=== PATIENT | male | born 1980 | race Caucasian/White ===

== ENCOUNTER → 2020-03-20 15:23 | Outpatient (BNVA) | payer OTHER, SELFPAY | PROVIDERS: PCP Physician Assistant; Visit Provider Surgery | DX: L73.2 Hidradenitis suppurativa (principal) | CPT/HCPCS: 99212 ==

== ENCOUNTER 2020-04-01 13:18 | Day surgery (SDC) | payer OTHER, SELFPAY ==
[2020-03-25 12:29] VITALS: BMI 33.6
--- NOTE | 2020-03-31 09:45 | P.CONAN_ITS ---
HPI - Anesthesia Eval Consult details Narrative: 39yo M for Excision Hidradenitis, Thigh PMFSH Past Medical History Medical History Bronchitis Cervical disc disease with myelopathy Depression Hidradenitis suppurativa Migraines Obesity Opiate dependence Smoker Thoracic disc disease Tibia/fibula fracture Type 2 diabetes mellitus Vitiligo Family History Family History Father CVD (cardiovascular disease) Surgical History Surgical History History of ankle surgery Social History Social History Are you a primary hospice home care coordinator to a significant other at home: No Do you presently have visiting nurse or other home services: No Smoking Status: Current every day smoker Tobacco Type: Cigarette Packs Per Day: 0.5 Cigarettes Per Day: 10.0 Years Smoked: 25 Smoked in Last 30 Days: Yes Patient Interested in Nicotine Replacement: No Patient Given Instructions on How to Stop Smoking: Yes Date Education Initiated: 03/25/20 Use of substances other than those prescribed or required for medical reasons: No Have you been hit, kicked, punched, or otherwise hurt by someone within the past year? If so, by whom?: No Advance Directives: No Advance Directives Information Provided: No Advance Directives on File: No Recently lost weight without trying: No Meds Allergies Allergy/AdvReac Type Severity Reaction Status Date / Time gluten AdvReac Gastrointestinal Verified 03/25/20 12:41 Upset milk AdvReac Gastrointestinal Verified 03/25/20 12:41 Upset Home Medications Medication Instructions Recorded Confirmed Type buprenorphine 2 mg-naloxone 0.5 mg 1 film BUCCAL DAILY 01/16/20 03/25/20 History sublingual film clonazepam 0.5 mg tablet 0.5 mg PO BEDTIME 01/16/20 03/25/20 History ibuprofen 800 mg tablet 800 mg PO TID 01/16/20 03/25/20 History sumatriptan succinate 100 mg tablet See Rx Instructions PO .COMPLEX 01/16/20 03/25/20 History tizanidine 4 mg capsule 4 mg PO Q8H PRN 01/16/20 03/25/20 History albuterol sulfate 2 puff INHALATION Q4H PRN 03/25/20 03/25/20 History Exam Exam Date and Time: March 31, 2020 0945 Height,Weight and Vital Signs: Height 6 ft 1 in Weight 115.666 kg Pertinent Lab Results Pertinent Lab Results: Laboratory Tests 09/21/19 09:20 Sodium 142 Potassium 4.4 Chloride 101 BUN 11 Creatinine 0.89 Assessment and Plan Assessment Anesthesia Assessment: Chart Reviewed
[2020-04-01] VITALS (9 sets, daily range): BP systolic 125–150; BP diastolic 72–99; PULSE 74–87; RESP 16; TEMP 36.2–36.7; O2SAT 95–98
[2020-04-01] MEDS: ceFAZolin Sodium/Dextrose,Iso 2 GM/50 ML PIGGYBACK IV (09:37)
[2020-04-01] MEDS: Lactated Ringers 1,000 ML 100 ML IVCONT (09:38)
--- NOTE | 2020-04-01 09:57 | P.CONAN_ITS ---
[facility] Past Medical History Medical History Bronchitis Cervical disc disease with myelopathy Depression Hidradenitis suppurativa Migraines Obesity Opiate dependence Smoker Thoracic disc disease Tibia/fibula fracture Type 2 diabetes mellitus Vitiligo Family History Family History Father CVD (cardiovascular disease) Surgical History Surgical History History of ankle surgery Social History Social History Are you a primary acute care physical therapist to a significant other at home: No Do you presently have visiting nurse or other home services: No Smoking Status: Current every day smoker Tobacco Type: Cigarette Packs Per Day: 0.5 Cigarettes Per Day: 10.0 Years Smoked: 25 Smoked in Last 30 Days: Yes Patient Interested in Nicotine Replacement: No Patient Given Instructions on How to Stop Smoking: Yes Date Education Initiated: 03/25/20 Use of substances other than those prescribed or required for medical reasons: No Have you been hit, kicked, punched, or otherwise hurt by someone within the past year? If so, by whom?: No Advance Directives: No Advance Directives Information Provided: No Advance Directives on File: No Recently lost weight without trying: No Meds Allergies Allergy/AdvReac Type Severity Reaction Status Date / Time gluten AdvReac Gastrointestinal Verified 03/25/20 12:41 Upset milk AdvReac Gastrointestinal Verified 03/25/20 12:41 Upset Home Medications Medication Instructions Recorded Confirmed Type buprenorphine 2 mg-naloxone 0.5 mg 1 film BUCCAL DAILY 01/16/20 03/25/20 History sublingual film clonazepam 0.5 mg tablet 0.5 mg PO BEDTIME 01/16/20 03/25/20 History ibuprofen 800 mg tablet 800 mg PO TID 01/16/20 03/25/20 History sumatriptan succinate 100 mg tablet See Rx Instructions PO .COMPLEX 01/16/20 03/25/20 History tizanidine 4 mg capsule 4 mg PO Q8H PRN 01/16/20 03/25/20 History albuterol sulfate 2 puff INHALATION Q4H PRN 03/25/20 03/25/20 History Exam Exam Date and Time: April 01, 2020 0957 Height,Weight and Vital Signs: Height 6 ft 1 in Weight 115.666 kg Last Vital Signs Temp 98 F 04/01/20 09:01 Pulse 86 04/01/20 09:01 Resp 16 04/01/20 09:01 BP 125/79 04/01/20 09:01 Pulse Ox 95 04/01/20 09:01 Airway Mallampati Class: III TM Dist: >3cm Neck ROM: Full Heart: RRR Lungs: CTA
--- NOTE | 2020-04-01 09:58 | P.CONAN_ITS ---
[facility] Past Medical History Medical History Bronchitis Cervical disc disease with myelopathy Depression Hidradenitis suppurativa Migraines Obesity Opiate dependence Smoker Thoracic disc disease Tibia/fibula fracture Type 2 diabetes mellitus Vitiligo Family History Family History Father CVD (cardiovascular disease) Surgical History Surgical History History of ankle surgery Social History Social History Are you a primary post acute care registered nurse to a significant other at home: No Do you presently have visiting nurse or other home services: No Smoking Status: Current every day smoker Tobacco Type: Cigarette Packs Per Day: 0.5 Cigarettes Per Day: 10.0 Years Smoked: 25 Smoked in Last 30 Days: Yes Patient Interested in Nicotine Replacement: No Patient Given Instructions on How to Stop Smoking: Yes Date Education Initiated: 03/25/20 Use of substances other than those prescribed or required for medical reasons: No Have you been hit, kicked, punched, or otherwise hurt by someone within the past year? If so, by whom?: No Advance Directives: No Advance Directives Information Provided: No Advance Directives on File: No Recently lost weight without trying: No Meds Allergies Allergy/AdvReac Type Severity Reaction Status Date / Time gluten AdvReac Gastrointestinal Verified 03/25/20 12:41 Upset milk AdvReac Gastrointestinal Verified 03/25/20 12:41 Upset Home Medications Medication Instructions Recorded Confirmed Type buprenorphine 2 mg-naloxone 0.5 mg 1 film BUCCAL DAILY 01/16/20 03/25/20 History sublingual film clonazepam 0.5 mg tablet 0.5 mg PO BEDTIME 01/16/20 03/25/20 History ibuprofen 800 mg tablet 800 mg PO TID 01/16/20 03/25/20 History sumatriptan succinate 100 mg tablet See Rx Instructions PO .COMPLEX 01/16/20 03/25/20 History tizanidine 4 mg capsule 4 mg PO Q8H PRN 01/16/20 03/25/20 History albuterol sulfate 2 puff INHALATION Q4H PRN 03/25/20 03/25/20 History Exam Exam Date and Time: April 01, 2020 0958 Height,Weight and Vital Signs: Height 6 ft 1 in Weight 115.666 kg Last Vital Signs Temp 98 F 04/01/20 09:01 Pulse 86 04/01/20 09:01 Resp 16 04/01/20 09:01 BP 125/79 04/01/20 09:01 Pulse Ox 95 04/01/20 09:01 Assessment and Plan Assessment Anesthesia Assessment: Anesthesia Plan Discussed, Smoking Cess. Discussed and Chart Reviewed Final Anesthetic Review NPO: Yes ASA Class: II and III Final Preanesthetic Review: No Changes in Pt Med Stat, Meds/Allgs Chart Reviewed, Consent Obtained/Reviewed and Anes Risks/Benef Reviewed Patient Risk: Low Procedure Risk: Low Anesthetic Plan Anesthetic Plan: GA Disposition: Standard PACU
--- NOTE | 2020-04-01 10:17 | MHC.SHP ---
Pre-Procedural Eval Section B Chief Complaint: Hidradenitis suppurativa Allergies: Allergies Allergy/AdvReac Type Severity Reaction Status Date / Time gluten AdvReac Gastrointestinal Verified 03/25/20 12:41 Upset milk AdvReac Gastrointestinal Verified 03/25/20 12:41 Upset Plan I have reviewed the history and physical and performed a pertinent physical examination on my patient. No changes have occurred unless specified.
--- NOTE | 2020-04-01 11:13 | P.BOP_ITS ---
Brief Operative Note Date of Service: 04/01/20 Pre-op diagnosis: hidradenitis suppurative right groin Post-op diagnosis: same Procedure: excision of right groin hidradenitis suppurativa Surgeon: Jose Zelaya MD Anesthesia: GLMA Associate Professor Of Surgery: Dia Rosales Estimated blood loss (mL): 10 Pathology: other (hidradenitis of right groin) Condition: stable Disposition: PACU
[2020-04-01] MEDS: fentaNYL citrate/PF 100 MCG/2 ML VIAL 25 MCG IVPUSH (11:43)
--- NOTE | 2020-04-01 11:56 | OP_ITS ---
SURGEON: Jose Zelaya MD INDICATIONS: The patient is a 39-year-old male, who has had an area on the right medial thigh with recurrent swelling and drainage. I have seen him in the office. He was noted to have an area on the right medial thigh near the groin with induration measuring about 4 cm. These are multiple small sinuses and some scanty drainage consistent with hidradenitis suppurativa. In view of this, he wanted to proceed with excision. He understood the technique of excision, which had to be done under anesthesia. He is aware of the risks, benefits, and alternatives. PREOPERATIVE DIAGNOSIS: Hidradenitis suppurativa, right medial thigh. POSTOPERATIVE DIAGNOSIS: Hidradenitis suppurativa, right medial thigh. PROCEDURE PERFORMED: Excision of hidradenitis suppurativa, right medial thigh. ESTIMATED BLOOD LOSS: COMPLICATIONS: ANESTHESIA: ASSISTANTS: Dia Rosales PA-C. SPECIMENS: DESCRIPTION OF PROCEDURE: He was brought to the operating room and placed in frog-leg position under general anesthesia via laryngeal mask airway. A surgical time-out had been done. The right groin was prepped and draped in usual sterile fashion. The patient received cefazolin 2 g IV preoperatively. I had marked the planned line of incision using a pen to make sure that we included all sinuses and areas of induration. I infiltrated the area with lidocaine 1%. I made incision using blade #15 and this was carried down to full-thickness skin and subcutaneous fat using electrocautery. We then proceeded to gently dissect across the thick subcutaneous fat using electrocautery, with care being taken so as to make sure that we are including all the indurated and grossly diseased looking soft tissue. We divided across this entire area of induration in the subcutaneous layer until this was removed and sent as specimen. The defect of skin and thick subcutaneous fat was about 7 cm long x about 3 cm wide. I undermined the edges to include the flap of skin and subcutaneous layer to allow closure without tension. We proceeded to make sure that we had good hemostasis by cauterizing oozing areas. We copiously irrigated. I reapposed the subcutaneous layer with Dexon 3-0 interrupted sutures. Skin closure was achieved with nylon 3-0 interrupted sutures, alternating with vertical mattress sutures. The area of incision was then infiltrated with Marcaine 0.5% for postop analgesia. Thick dressings were applied. The procedure was completed. The patient tolerated the procedure well. There were no complications noted. Initial and final counts of sponges and instruments were correct. Estimated blood loss was about 15 mL. The patient was extubated without difficulty and transferred to recovery room with stable vital signs. MD TRAN Terrazas/WONG / [id number]
[2020-04-01 13:49] LABS: Glucose, Whole Blood 106 mg/dL (60-115)
--- NOTE | 2020-04-01 14:12 | HO.POSTANES ---
Post Anesthesia Evaluation Post Anesthesia Evaluation Vital Signs: Vital Signs Temp Pulse Resp BP Pulse Ox 04/01/20 12:14 98.1 F 77 131/72 96 04/01/20 12:03 74 16 133/72 96 04/01/20 11:48 81 16 126/84 97 04/01/20 11:43 16 04/01/20 11:33 98.1 F 84 16 148/99 H 97 04/01/20 11:28 87 16 138/97 H 98 04/01/20 11:22 81 16 150/99 H 98 04/01/20 11:17 97.1 F 83 16 142/95 H 98 04/01/20 09:01 98 F 86 16 125/79 95 Anesthesia: General LMA Mental Status: Awake Pain Control: Satisfactory Nausea/Vomiting: None Hydration: Adequate Anesthesia-Related Issues: No Anes. Related Issues
== END 2020-04-01 13:25 | disposition home or self-care (01) ==
LOC: HO.SSS 13:19
PROVIDERS: PCP Physician Assistant; Visit Provider Surgery
PROC: (CPT 11462; principal; 2020-04-01 10:50)
DX: L73.2 Hidradenitis suppurativa (principal); L80 Vitiligo; E11.9 Type 2 diabetes mellitus without complications; M50.00 Cervical disc disorder with myelopathy, unspecified cervical region; M51.9 Unspecified thoracic, thoracolumbar and lumbosacral intervertebral disc disorder; F11.20 Opioid dependence, uncomplicated; F17.210 Nicotine dependence, cigarettes, uncomplicated; Z79.899 Other long term (current) drug therapy
CPT/HCPCS: 11462; 82947; 88305; J0690; J1100; J2250; J2405; J3010

== ENCOUNTER → 2020-04-16 09:42 | Outpatient (BNVA) | payer OTHER, SELFPAY | PROVIDERS: PCP Physician Assistant; Visit Provider Surgery | DX: L73.2 Hidradenitis suppurativa (principal) | CPT/HCPCS: 99212 ==

== ENCOUNTER 2020-10-25 10:18 | Outpatient (REF) | payer OTHER, SELFPAY ==
--- NOTE | ~2020-10-25 | XR_ITS ---
EXAMINATION: XR knee LT 4V, XR knee RT 4V, XR tibia fibula RT 2V CLINICAL INFORMATION: Fracture. COMPARISON: None. TECHNIQUE: Right knee 4 views. AP and lateral right tibia and fibula. Left knee 3 views. FINDINGS: RIGHT KNEE: A medial sideplate and multiple screws transfix a tibial plateau fracture which appears healed. There is irregularity of the lateral tibial plateau articular margin width posterior displacement of a portion of the proximal tibia. No hardware complication is seen. Mild degenerative changes are present in the medial and lateral compartments. No acute abnormality. RIGHT TIBIA AND FIBULA: AP and lateral views of the right tibia and fibula show no additional abnormality. LEFT KNEE: 3 views of the left knee are normal. No bony abnormality. Joint spaces are maintained. No joint effusion is demonstrated. XR/XR knee LT 4V IMPRESSION: 1. Status post ORIF of right tibial plateau fracture. Irregularity of the lateral tibial plateau with posteriorly displaced fragment. The fracture appears solidly united. Mild degenerative changes. No acute abnormality. 2. Normal left knee.
--- NOTE | ~2020-10-25 | XR_ITS ---
EXAMINATION: XR knee LT 4V, XR knee RT 4V, XR tibia fibula RT 2V CLINICAL INFORMATION: Fracture. COMPARISON: None. TECHNIQUE: Right knee 4 views. AP and lateral right tibia and fibula. Left knee 3 views. FINDINGS: RIGHT KNEE: A medial sideplate and multiple screws transfix a tibial plateau fracture which appears healed. There is irregularity of the lateral tibial plateau articular margin width posterior displacement of a portion of the proximal tibia. No hardware complication is seen. Mild degenerative changes are present in the medial and lateral compartments. No acute abnormality. RIGHT TIBIA AND FIBULA: AP and lateral views of the right tibia and fibula show no additional abnormality. LEFT KNEE: 3 views of the left knee are normal. No bony abnormality. Joint spaces are maintained. No joint effusion is demonstrated. XR/XR tibia fibula RT 2V IMPRESSION: 1. Status post ORIF of right tibial plateau fracture. Irregularity of the lateral tibial plateau with posteriorly displaced fragment. The fracture appears solidly united. Mild degenerative changes. No acute abnormality. 2. Normal left knee.
--- NOTE | ~2020-10-25 | XR_ITS ---
EXAMINATION: XR knee LT 4V, XR knee RT 4V, XR tibia fibula RT 2V CLINICAL INFORMATION: Fracture. COMPARISON: None. TECHNIQUE: Right knee 4 views. AP and lateral right tibia and fibula. Left knee 3 views. FINDINGS: RIGHT KNEE: A medial sideplate and multiple screws transfix a tibial plateau fracture which appears healed. There is irregularity of the lateral tibial plateau articular margin width posterior displacement of a portion of the proximal tibia. No hardware complication is seen. Mild degenerative changes are present in the medial and lateral compartments. No acute abnormality. RIGHT TIBIA AND FIBULA: AP and lateral views of the right tibia and fibula show no additional abnormality. LEFT KNEE: 3 views of the left knee are normal. No bony abnormality. Joint spaces are maintained. No joint effusion is demonstrated. XR/XR knee RT 4V IMPRESSION: 1. Status post ORIF of right tibial plateau fracture. Irregularity of the lateral tibial plateau with posteriorly displaced fragment. The fracture appears solidly united. Mild degenerative changes. No acute abnormality. 2. Normal left knee.
[2020-10-25 11:08] LABS: Estimated Average Glucose 123 mg/dL; Hemoglobin A1c % 5.9 %
[2020-10-25 11:51] LABS: Creatinine Urine 206.25 mg/dL; Microalbum/Creatinine Ratio Ur 5.8 ug/mg cr
[2020-10-25 11:54] LABS: Alanine Aminotransferase 30 U/L (0-40); Albumin Level 4.8 g/dL (3.5-5.0); Alkaline Phosphatase 85 U/L (39-117); Anion Gap 13 (12-20); Aspartate Amino Transferase 27 U/L (5-37); Bilirubin Total 0.7 mg/dL (0.0-1.0); Blood Urea Nitrogen 12 mg/dL (9-16); Calcium 9.7 mg/dL (8.4-10.2); Carbon Dioxide 30 mmol/L (22-29); Chloride 104 mmol/L (96-108); Cholesterol 178 mg/dL; Estimated Glomerular Filt Rate > 60; Glucose Fasting 99 mg/dL (60-99); HDL Cholesterol 36 mg/dL; LDL Cholesterol Calculated 104 mg/dl; Potassium 4.6 mmol/L (3.3-5.1); Sodium 142 mmol/L (135-145); Total Protein 7.4 g/dL (6.5-8.0); Triglycerides 192 mg/dL
[2020-10-25 12:15] LABS: TSH reflex Free T4 1.14 uIU/mL (0.32-4.0)
== END 2020-10-25 10:19 | disposition home or self-care (01) ==
LOC: HO.XRAY 10:18
PROVIDERS: PCP Physician Assistant; Visit Provider Physician Assistant
DX: E11.9 Type 2 diabetes mellitus without complications (principal); G89.29 Other chronic pain; M25.561 Pain in right knee; M25.562 Pain in left knee; Z79.4 Long term (current) use of insulin; Z87.81 Personal history of (healed) traumatic fracture
CPT/HCPCS: 36415; 73564; 73590; 80053; 80061; 82043; 83036; 84443

== ENCOUNTER 2020-11-03 12:43 | Outpatient (REF) | payer OTHER, SELFPAY ==
[2020-11-03 13:34] LABS: Hemoglobin 16.2 g/dl (14.0-18.0); Mean Corpuscular HGB Conc 32.4 g/dl (31.0-36.0); Mean Corpuscular Hemoglobin 28.7 pg (27.0-33.0); Mean Corpuscular Volume 88.5 fL (80-98); Mean Platelet Volume 10.3 fL (9.4-12.4); Platelet Count 182 X10*3/uL (160-400); Red Blood Count 5.65 X10*6/uL (4.60-5.80); Red Cell Distribution Width 12.4 % (11.0-16.0); White Blood Count 8.1 X10*3/uL (4.8-10.8)
[2020-11-03 14:10] LABS: Syphilis Screen Nonreactive (Nonreactive)
[2020-11-04 04:20] LABS: HBc Num1 0.06 S/CO (0.00-0.79); HBsAGNum1 0.19 S/CO (0.00-0.99); Hepatitis B Core Antibody Nonreactive (Nonreactive); Hepatitis B Surface Antigen Negative (Negative); ~HepC Num1 0.08 S/CO (0.00-0.79); ~Hepatitis C Antibody Nonreactive (Nonreactive)
[2020-11-04 04:23] LABS: HBS Num1 10.86 mIU/mL (0-7.99); HIV AB/AG Nonreactive (Nonreactive); HIV Num 1 0.07 S/CO (0.00-0.99)
[2020-11-04 05:22] LABS: HBS Num2 9.95 mIU/mL (0-7.99); HBS Num3 10.47 mIU/mL (0-7.99); ~Hepatitis B Surface Antibody GRAYZONE (Nonreactive)
== END 2020-11-03 12:44 | disposition home or self-care (01) ==
LOC: HO.LAB 12:43
PROVIDERS: PCP Physician Assistant; Visit Provider Physician Assistant
DX: Z01.84 Encounter for antibody response examination (principal); Z11.4 Encounter for screening for human immunodeficiency virus [HIV]; Z11.59 Encounter for screening for other viral diseases; E11.9 Type 2 diabetes mellitus without complications; I10 Essential (primary) hypertension; Z79.4 Long term (current) use of insulin
CPT/HCPCS: 36415; 85027; 86704; 86706; 86780; 86803; 87340; 87389

== ENCOUNTER → 2020-11-05 11:05 | Outpatient (BNVA) | payer OTHER, SELFPAY | PROVIDERS: PCP Physician Assistant; Visit Provider Orthopaedic Surgery | DX: M17.31 Unilateral post-traumatic osteoarthritis, right knee (principal) | CPT/HCPCS: 99202 ==

== ENCOUNTER → 2020-11-11 13:01 | Outpatient (BNVA) | payer SELFPAY | PROVIDERS: PCP Physician Assistant; Visit Provider Internal Medicine | DX: Z02.79 Encounter for issue of other medical certificate (principal) ==

== ENCOUNTER 2020-11-22 13:17 | Outpatient (REF) | payer OTHER, SELFPAY ==
--- NOTE | ~2020-11-22 | XR_ITS ---
EXAMINATION: XR THORACIC SPINE. XR LUMBAR SPINE. CLINICAL INFORMATION: Back pain COMPARISON: 12/04/2019 TECHNIQUE: AP and lateral radiographs of the thoracic spine. 3 views of the lumbar spine. FINDINGS: Thoracic spine: Normal alignment and thoracic kyphosis. No fracture. No significant degenerative findings. Lumbar spine: Normal alignment and lumbar lordosis. Intervertebral disc heights are preserved. No fracture or focal osseous lesion. XR/XR thoracic spine 3V IMPRESSION: Thoracic spine: Normal. Lumbar spine: Normal.
--- NOTE | ~2020-11-22 | XR_ITS ---
EXAMINATION: XR THORACIC SPINE. XR LUMBAR SPINE. CLINICAL INFORMATION: Back pain COMPARISON: 12/04/2019 TECHNIQUE: AP and lateral radiographs of the thoracic spine. 3 views of the lumbar spine. FINDINGS: Thoracic spine: Normal alignment and thoracic kyphosis. No fracture. No significant degenerative findings. Lumbar spine: Normal alignment and lumbar lordosis. Intervertebral disc heights are preserved. No fracture or focal osseous lesion. XR/XR lumbar spine 2-3V IMPRESSION: Thoracic spine: Normal. Lumbar spine: Normal.
== END 2020-11-22 13:18 | disposition home or self-care (01) ==
LOC: HO.HMGCX 13:17
PROVIDERS: PCP Physician Assistant; Visit Provider Physician Assistant Medical
DX: M54.9 Dorsalgia, unspecified (principal); Z87.39 Personal history of other diseases of the musculoskeletal system and connective tissue
CPT/HCPCS: 72072; 72100

== ENCOUNTER 2021-02-13 15:43 | Outpatient (REF) | payer OTHER, SELFPAY ==
[2021-02-13 17:48] LABS: Influenza A PCR NEGATIVE (Negative); Influenza B PCR NEGATIVE (Negative); Resp Syncy Virus RNA Qual PCR NEGATIVE (Negative); SARS COV2 PCR INHOUSE NEGATIVE (Negative)
== END 2021-02-13 15:44 | disposition home or self-care (01) ==
LOC: HO.LAB 15:43
PROVIDERS: Visit Provider Internal Medicine
DX: Z20.822 Contact with and (suspected) exposure to COVID-19 (principal); R43.9 Unspecified disturbances of smell and taste
CPT/HCPCS: 0241U; 36415

== ENCOUNTER 2021-10-14 15:18 | Outpatient (REF) | payer OTHER, SELFPAY ==
[2021-10-19 11:21] LABS: Testosterone, Total 291 ng/dL (250-1100)
== END 2021-10-14 15:19 | disposition home or self-care (01) ==
LOC: HO.LAB 15:18
PROVIDERS: PCP Physician Assistant; Visit Provider Physician Assistant
DX: R68.82 Decreased libido (principal); Z79.891 Long term (current) use of opiate analgesic
CPT/HCPCS: 36415; 84403

== ENCOUNTER → 2021-10-26 10:51 | Outpatient (BNVA) | payer SELFPAY | PROVIDERS: PCP Physician Assistant; Visit Provider Internal Medicine | DX: Z02.79 Encounter for issue of other medical certificate (principal) ==

== ENCOUNTER 2022-04-17 10:16 | Outpatient (REF) | payer OTHER, SELFPAY ==
[2022-04-17 11:07] LABS: Hematocrit 50.8 % (42.0-52.0); Hemoglobin 16.9 g/dl (14.0-18.0); Mean Corpuscular HGB Conc 33.3 g/dl (31.0-36.0); Mean Corpuscular Volume 87.3 fL (80.0-98.0); Mean Platelet Volume 9.8 fL (9.4-12.4); Platelet Count 214 X10*3/uL (160-400); Red Blood Count 5.82 X10*6/uL (4.60-5.80); Red Cell Distribution Width 12.8 % (11.0-16.0); White Blood Count 11.7 X10*3/uL (4.8-10.8)
[2022-04-17 11:12] LABS: Urine Cytology See Pathology rpt
[2022-04-17 11:22] LABS: Appearance Urine Clear; Color Urine Yellow; Glucose Urine UA Negative (Negative); Leukocyte Esterase Urine Negative (Negative); Nitrite Urine Negative (Negative); Specific Gravity - Urine >= 1.030 (1.005-1.025); Urine Blood Negative (Negative); Urine Ketones Negative (Negative); Urine Protein Trace mg/dL (Neg-Trace)
[2022-04-17 11:39] LABS: Creatinine Urine 327.52 mg/dL; Microalbum/Creatinine Ratio Ur 9.4 ug/mg cr
[2022-04-17 11:59] LABS: TSH reflex Free T4 1.62 uIU/mL (0.32-4.0)
[2022-04-17 12:00] LABS: Anion Gap 18 (12-20)
[2022-04-17 12:04] LABS: Alanine Aminotransferase 34 U/L (0-40); Albumin Level 4.8 g/dL (3.5-5.0); Alkaline Phosphatase 76 U/L (39-117); Aspartate Amino Transferase 20 U/L (5-37); Bilirubin Total 0.5 mg/dL (0.0-1.0); Blood Urea Nitrogen 17 mg/dL (9-16); Calcium 9.8 mg/dL (8.4-10.2); Carbon Dioxide 23 mmol/L (22-29); Chloride 109 mmol/L (96-108); Cholesterol 227 mg/dL; Estimated Glomerular Filt Rate > 60; Glucose Fasting 112 mg/dL (60-99); HDL Cholesterol 46 mg/dL; LDL Cholesterol Calculated 143 mg/dl; Potassium 3.9 mmol/L (3.3-5.1); Sodium 146 mmol/L (135-145); Total Protein 7.4 g/dL (6.5-8.0); Triglycerides 194 mg/dL
== END 2022-04-17 10:17 | disposition home or self-care (01) ==
LOC: HO.LAB 10:16
PROVIDERS: Visit Provider Physician Assistant
DX: E11.9 Type 2 diabetes mellitus without complications (principal); N52.2 Drug-induced erectile dysfunction; R30.0 Dysuria; Z79.4 Long term (current) use of insulin
CPT/HCPCS: 36415; 80053; 80061; 81003; 82043; 84443; 85027; 88112

== ENCOUNTER → 2022-08-31 09:23 | Outpatient (BNVA) | payer OTHER, SELFPAY | PROVIDERS: PCP Physician Assistant; Visit Provider Registered Nurse Emergency ==

== ENCOUNTER 2022-09-16 12:17 | Outpatient (REF) | payer OTHER, MEDICAID, SELFPAY ==
--- NOTE | ~2022-09-16 | XR_ITS ---
EXAMINATION: XR BILATERAL KNEES CLINICAL INFORMATION: Reason for Exam M25.569 - Pain in unspecified knee COMPARISON: Knee radiographs 10/25/2020 TECHNIQUE: 1 views of the bilateral knees and 2 views of the right knee. FINDINGS: RIGHT KNEE: Chronic prostatic fracture deformity of the proximal tibia status post plate and screw fixation in unchanged alignment. A 9 mm osseous fragment the tibiofemoral joint space which may reflect a loose body. Moderate degenerative changes of the knee with loss of lateral compartment joint space and medial lateral compartment osteophytes. Small suprapatellar joint effusion. Soft tissues are unremarkable. LEFT KNEE: No acute fracture or dislocation. Joint spaces are maintained. Soft tissues are unremarkable. XR/XR knee RT 2V IMPRESSION: * No acute osseous abnormality. * Moderate degenerative changes of the right knee with a 9 mm osseous fragment within the tibiofemoral joint space which may reflect a loose body. Small right suprapatellar joint effusion.
--- NOTE | ~2022-09-16 | XR_ITS ---
EXAMINATION: XR PELVIS CLINICAL INFORMATION: Pain COMPARISON: None available. TECHNIQUE: AP view of the pelvis. FINDINGS: No acute fracture or dislocation. Mild degenerative changes of the hips with subchondral sclerosis. Bony prominence of the bilateral femoral head and neck junctions may reflect a cam deformity with a subcortical cyst in the left femoral head and neck junction. Hip, sacroiliac and pubic symphysis joint spaces are maintained. Few calcified phleboliths in the pelvis. XR/XR pelvis 1-2V IMPRESSION: Bony prominence of the bilateral femoral head and neck junctions may reflect a cam deformity with a subcortical cyst in the left femoral head and neck junction and mild degenerative changes of the hips.
--- NOTE | ~2022-09-16 | XR_ITS ---
EXAMINATION: XR BILATERAL KNEES CLINICAL INFORMATION: Reason for Exam M25.569 - Pain in unspecified knee COMPARISON: Knee radiographs 10/25/2020 TECHNIQUE: 1 views of the bilateral knees and 2 views of the right knee. FINDINGS: RIGHT KNEE: Chronic prostatic fracture deformity of the proximal tibia status post plate and screw fixation in unchanged alignment. A 9 mm osseous fragment the tibiofemoral joint space which may reflect a loose body. Moderate degenerative changes of the knee with loss of lateral compartment joint space and medial lateral compartment osteophytes. Small suprapatellar joint effusion. Soft tissues are unremarkable. LEFT KNEE: No acute fracture or dislocation. Joint spaces are maintained. Soft tissues are unremarkable. XR/XR knee standing BI IMPRESSION: * No acute osseous abnormality. * Moderate degenerative changes of the right knee with a 9 mm osseous fragment within the tibiofemoral joint space which may reflect a loose body. Small right suprapatellar joint effusion.
== END 2022-09-16 12:18 | disposition home or self-care (01) ==
LOC: HO.HOSX 12:17
PROVIDERS: Visit Provider Orthopaedic Surgery
DX: M17.31 Unilateral post-traumatic osteoarthritis, right knee (principal); S82.201S Unspecified fracture of shaft of right tibia, sequela; R26.9 Unspecified abnormalities of gait and mobility; X58.XXXS Exposure to other specified factors, sequela; Z96.9 Presence of functional implant, unspecified
CPT/HCPCS: 20610; 72170; 73560; 73565; 99202; J1100

== ENCOUNTER 2022-10-18 09:19 | Outpatient (AMB) | payer OTHER, MEDICAID, SELFPAY ==
--- NOTE | 2022-10-18 10:17 | A.OFFPC_ITS ---
Vital Signs 10/20/22 07:27 Height 6 ft 1 in Weight 252 lb BMI 33.2 Intake Visit Reasons: Annual exam Allergies gluten Adverse Reaction (Verified 09/16/22 15:19) Gastrointestinal Upset milk Adverse Reaction (Verified 09/16/22 15:19) Gastrointestinal Upset Tobacco use date assessed: 06/02/21 [facility] Annual exam HPI Details Patient is a 41 here today for routine annual physical t.? Patient has a past medical history significant for opiate dependence type 2 diabetes cervical disc disease with myopathy, tobacco use disorder .. Tobacco use disorder:? Patient does understand he needs to quit smoking and would like to wean smoking on his own.? He declines my offers to give nicotine replacement therapy. . Type 2 diabetes:? Has been diet controlled with lifestyle. Todays A1c - 5.9 .? .. History of tib-fib fracture:? Does have a history of a tib-fib fracture secondary to trauma with hardware repair placement at [facility] ? Dr. rodarte. He reports he continues to have right knee pain and pain in his anterior pearce. He does have retained orthopedic hardware and is due for removal in near future. First pain control he would still does use ibuprofen and gabapentin with some minimal relief. [facility] Medical History (Updated 10/20/22 @ 07:26 by Hammad Lopez PA-C) Bronchitis Cervical disc disease with myelopathy Depression H/O fracture of tibia Hidradenitis suppurativa Low libido Microscopic hematuria Migraines Obesity Opiate dependence Smoker Thoracic disc disease Tibia/fibula fracture Tibial plateau fracture, right Type 2 diabetes mellitus Vitiligo Surgical History History of ankle surgery History of removal of cyst Family History Father CVD (cardiovascular disease) Brother Heart attack, Onset Age: 50 Social History (Updated 09/16/22 @ 15:21 by GARCIA Harrell) Housing: House Are you a primary child care sitter to a significant other at home: No Do you presently have visiting nurse or other home services: No Alcohol intake: never Patient Tobacco Use Status: Current everyday Tobacco user Cigarette Packs Per Day: 1 Cigarettes Per Day: 20.0 Years Smoked: 25 e-Cigarette/Vaping Use: Never Used Second Hand Smoke Exposure: No service: No Current occupational status: employed 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 Agustin Cerda, Micki Harris, Adam Adan and colleagues, with an educational basilio from [employer]. Review of Systems Const Denies body aches, Denies chills, Denies excessive sweating, Denies fatigue, Denies fever(s) and Denies headache(s) Eyes Denies blurry vision ENT Denies dysphagia, Denies vertigo, Denies dizziness, Denies headache(s), Denies hearing loss and Denies tinnitus Card Denies chest pain, Denies chest pain with activity, Denies syncope, Denies irregular heart rhythm and Denies dyspnea Resp Denies chest congestion, Denies cough, Denies hemoptysis, Denies dyspnea and Denies wheezing GI Denies abdominal pain, Denies melena, Denies hematochezia, Denies coffee ground emesis, Denies dysphagia, Denies diarrhea, Denies nausea and Denies vomiting Denies difficulty urinating, Denies dysuria, Denies urinary frequency, Denies urinary hesitancy and Denies urinary urgency Musc Denies arthralgias, Denies limited range of motion, Denies muscle cramps and Denies muscle weakness Skin/Breast Denies rash and Denies skin ulcer Neuro Denies Abnormal speech present, Denies confusion, Denies vertigo, Denies dizziness, Denies syncope, Denies headache(s), Denies memory loss and Denies seizure-like activity Psych Denies anxiety, Denies confusion, Denies depression, Denies memory loss, Denies panic attacks and Denies paranoia Endo Denies excessive sweating, Denies fatigue, Denies flushing, Denies polydipsia and Denies polyuria Aller/Immun Denies wheezing Physical exam (Primary Care) BMI Assessment/Plan discussion: High Tobacco/Smoking Status: Tobacco use Status Tobacco use date assessed 06/02/21 10/18/22 10:19 Patient Tobacco Use Status Current everyday Tobacco 10/18/22 10:19 e-Cigarette/Vaping Use Never Used 07/10/23 10:19 Thrive Assessment: Date of Thrive Assessment Date Thrive assessed 04/14/22 10/18/22 10:19 Const Other: Obese General: cooperative, comfortable, no acute distress, alert and awake; No confusion Orientation/consciousness: oriented to person, oriented to place, patient oriented x3 and No confusion HENMT Head: Yes normocephalic Ears: external ears normal and TM's normal bilaterally Face and sinus: No sinus tenderness Mouth: Normal oral and palatal mucosa present and tongue normal Teeth and gingiva: dentition normal and gingiva normal Throat: Yes posterior oropharynx normal, Yes tonsils normal and Yes uvula midline Eyes Conjunctivae: conjunctivae normal Sclerae: sclerae normal Pupils: Equal, round and reactive pupils present EOM: EOMs intact bilaterally Direct Ophthalmoscopy: No no photophobia Neck Neck: Yes no lymphadenopathy, No tender and Yes no JVD Thyroid: Thyroid normal Carotids: no bruits Chest Chest palpation & inspection: no tenderness Resp Effort & Inspection: normal respiratory effort, no audible wheezes, not labored and no stridor Auscultation: no crackles, no rales, no rhonchi and no wheezes Cardio Jugular venous distension: no JVD Rate: regular rate, not bradycardic and not tachycardic Rhythm: regular rhythm Bruits: no carotid bruits Peripheral pulses: Peripheral pulses 2+ throughout GI Inspection: Yes normal to inspection, No abdominal wall ecchymosis and No visible herniation Palpation (GI): Soft to palpation, nontender, no guarding, not rigid and No hepatosplenomegaly present Auscultation: normoactive bowel sounds General: Yes no CVA tenderness Back/Spine/Pelvis Back: no CVA tenderness and No back tenderness Cervical Spine: cervical ROM normal Thoracic/Lumbar Spine: thoracic and lumbar spine normal to inspection, straight leg raise negative bilaterally, No thoraco-lumbar ROM limited and No lumbar spinal tenderness Skin Lesions: no lesions Rashes: no rashes Wounds: no wounds Neuro General: oriented to person, oriented to place, patient oriented x3, CN's II-XI intact bilaterally and No confusion Cranial nerves: Yes Equal, round and reactive pupils present and Yes Normal accommodation reflex present Cognition (Neuro): normal cognition Speech: No Abnormal speech present Gait exam (Neuro): Normal gait present Motor exam (neuro): 5/5 motor strength present throughout Extrem Right upper extremity: full ROM; no cyanosis Left upper extremity: full ROM; no cyanosis Right lower extremity: no edema Left lower extremity: no edema Psych Appearance: grossly normal Mental Status: mental status grossly normal Affect: normal affect Attitude: cooperative Thought process: Normal thought process present Assessment and Plan Assessment & Plan (1) Annual physical exam: Code(s): Z00.00 - Encounter for general adult medical examination without abnormal findings (2) ERIN (generalized anxiety disorder): Code(s): F41.1 - Generalized anxiety disorder Plan: Continues to follow a mental health therapist and psychiatrist whom manages mental health medications. He feels his mental health is stable at this time. (3) MDD (major depressive disorder), recurrent episode, moderate: Code(s): F33.1 - Major depressive disorder, recurrent, moderate Plan: Again patient followed by a psychiatrist and a mental health therapist and feels his mental health is stable at this time on current doses of mental health medications. Otherwise denies any SI or HI (4) Hyperlipidemia: Code(s): E78.5 - Hyperlipidemia, unspecified Qualifiers: Hyperlipidemia type: mixed hyperlipidemia Qualified Code(s): E78.2 - Mixed hyperlipidemia Plan: Most recent fasting lipid panel noted to have elevated total cholesterol and LDL. Patient has been working on lifestyle modifications to try to reduce his cholesterol. Will recheck fasting lipids in near future. Goal LDL to be below 130 (5) Retained orthopedic hardware: Code(s): Z96.9 - Presence of functional implant, unspecified Plan: Followed by Orthopedics and is due for bothersome hardware removal surgery in near future. (6) Type 2 diabetes mellitus: Comment: No rx Code(s): E11.9 - Type 2 diabetes mellitus without complications Qualifiers: Diabetes mellitus penitentiary insulin use: with terminal makeup operator use Diabetes mellitus complication status: without complication Qualified Code(s): E11.9 - Type 2 diabetes mellitus without complications; Z79.4 - terminal makeup operator (current) use of insulin Plan: Patient has history of type 2 diabetes though now is lifestyle controlled. Most recent A1c acceptable. Goal A1c is to remain below 6.5 (7) Obese: Code(s): E66.9 - Obesity, unspecified Qualifiers: Obesity type: due to excess calories Obesity classification: adult class 1 (BMI 30 - 34.9) Serious obesity comorbidity presence: without serious comorbidity Body mass index: BMI 31.0-31.9 Qualified Code(s): E66.09 - Other obesity due to excess calories; Z68.31 - Body mass index [BMI] 31.0-31.9, adult Plan: Patient does understand his BMI is well over 30 will work on being more physically active and adapting to better eating habits to reduce his weight. Orders: Orders Comprehensive [place]. Panel Fast 10/18/22 E11.9 - Type 2 diabetes mellitus without complications, Z79.4 - detention (current) use of insulin Hemoglobin A1c 10/18/22 E11.9 - Type 2 diabetes mellitus without complications, Z79.4 - terminal makeup operator (current) use of insulin Lipid Panel 10/18/22 E11.9 - Type 2 diabetes mellitus without complications, Z79.4 - terminal makeup operator (current) use of insulin Microalbumin, Random (w Creat) 10/18/22 E11.9 - Type 2 diabetes mellitus without complications, Z79.4 - terminal makeup operator (current) use of insulin Complete Blood Count no Diff 10/18/22 E11.9 - Type 2 diabetes mellitus without complications, Z79.4 - detention (current) use of insulin Medications: Refilled ibuprofen 800 mg PO TID 15 days 45 tabs 0RF E11.9 - Type 2 diabetes mellitus without complications, Z79.4 - detention (current) use of insulin Coding Level of Care Code Est Pt Prev Care 40-64y(62134) Diagnoses Annual physical exam Z00.00 ERIN (generalized anxiety disorder) F41.1 MDD (major depressive disorder), recurrent episode, moderate F33.1 Hyperlipidemia E78.2 Hyperlipidemia type: mixed hyperlipidemia Retained orthopedic hardware Z96.9 Type 2 diabetes mellitus E11.9; Z79.4 Diabetes mellitus terminal makeup operator insulin use: with penitentiary use Diabetes mellitus complication status: without complication Obese E66.09; Z68.31 Obesity type: due to excess calories Obesity classification: adult class 1 (BMI 30 - 34.9) Serious obesity comorbidity presence: without serious comorbidity Body mass index: BMI 31.0-31.9
[2022-10-20 07:27] VITALS: BMI 33.2
== END 2022-10-18 10:37 | disposition home or self-care (01) ==
LOC: HO.HMGH 10:36
PROVIDERS: PCP Physician Assistant; Visit Provider Physician Assistant
DX: Z00.00 Encounter for general adult medical examination without abnormal findings (principal); F33.1 Major depressive disorder, recurrent, moderate; E11.9 Type 2 diabetes mellitus without complications; Z79.4 Long term (current) use of insulin; F41.1 Generalized anxiety disorder; E78.2 Mixed hyperlipidemia; Z96.9 Presence of functional implant, unspecified; Z68.31 Body mass index [BMI] 31.0-31.9, adult; E66.09 Other obesity due to excess calories
CPT/HCPCS: 99396

== ENCOUNTER 2022-11-12 09:10 | Outpatient (AMB) | payer OTHER, MEDICAID, SELFPAY ==
--- NOTE | 2022-11-12 09:22 | AM.OFFWIN_ITS ---
Intake Vital Signs 11/12/22 09:25 Height 6 ft 1 in BP 126/78 Blood Pressure Location Lt brachial Position Sitting Pulse 105 H Pulse Source Pulse Oximeter Temp 97.5 F Temp Source Temporal Artery Scan Pulse Oximetry (%) 96 Oxygen Delivery Method Room Air Intake Visit Reasons: EP, Bronchitis Intake Note: Pt is here c/o possible bronchitis. Pt states he has had bronchitis before and feels the same symptoms. Pt states he is coughing up phlem, chest congestion, dizziness and pain in his ribs. Patient Tobacco Use Status: Current everyday Tobacco user Allergies gluten Adverse Reaction (Verified 11/12/22 09:24) Gastrointestinal Upset milk Adverse Reaction (Verified 11/12/22 09:24) Gastrointestinal Upset Do you need a note to return to daycare/school/sports/work: No HPI HPI Comments History of Present Illness Details 41-year-old male history of DVT, current daily smoker 1 pack per day presents to the clinic for sick visit, patient reporting fatigue, malaise, subjective fevers and chills, cough of productive yellow/ green sputum this has been going on since Tuesday, worsening /not improving. Patient reports some a ssociated shortness of breath however no chest pain. Patient tells me he did have a sick contact at work with similar symptoms. Patient denies nausea, vomiting, abdominal pain, headache, vision changes, dizziness, joint pain, chest pain, palpitations. Patient not on anticoagulants. Physical examination benign. Concerns for bronchitis versus upper respiratory illness versus pneumonia. Less likely PE however due to patient's past medical history will order D-dimer, I did explain to him that if D-dimer is positive he should go to the emergency department for further evaluation, patient also tachycardic but I suspect this is secondary to cough an acute viral/ bacterial illness not from pulmonary embolism. Patient is not hypoxic. Patient without chest pain unlikely ACS or dissection. No signs of acute hypoxia respiratory distress at this time. Will discharge patient on doxycycline, prednisone, albuterol. Educated patient on diagnosis and treatment plan, answered all question, patient verbalizes understanding. At this time patient will be discharged home, advised to return with new or worsening symptoms. Educated on worrisome signs and symptoms and when to return. At this time I feel comfortable discharge home. [facility] Medical History (Updated 10/20/22 @ 07:26 by Hammad Lopez PA-C) Bronchitis Cervical disc disease with myelopathy Depression H/O fracture of tibia Hidradenitis suppurativa Low libido Microscopic hematuria Migraines Obesity Opiate dependence Smoker Thoracic disc disease Tibia/fibula fracture Tibial plateau fracture, right Type 2 diabetes mellitus Vitiligo Surgical History History of ankle surgery History of removal of cyst Family History Father CVD (cardiovascular disease) Brother Heart attack, Onset Age: 50 Social History (Updated 09/16/22 @ 15:21 by GARCIA Harrell) Housing: House Are you a primary group care worker to a significant other at home: No Do you presently have visiting nurse or other home services: No Alcohol intake: never Patient Tobacco Use Status: Current everyday Tobacco user Cigarette Packs Per Day: 1 Cigarettes Per Day: 20.0 Years Smoked: 25 e-Cigarette/Vaping Use: Never Used Second Hand Smoke Exposure: No service: No Current occupational status: employed 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 If you were prescribed antibiotics today, it is important that you take your medication to their entirety, do not skip any doses, do not finish them early. Follow-up with your primary care provider this week. Return to the emergency department with new or worsening symptoms. Such as fevers, chills, chest pain, shortness of breath, nausea, vomiting, dizziness, headache, vision changes, lethargy In case of emergency call 911 Orders: Orders D Dimer High Sensitivity Today R05.9 - Cough, unspecified Medications: New prednisone 20 mg PO DAILY 5 tabs 0RF 5 days doxycycline hyclate 100 mg PO BID 14 caps 0RF 7 days albuterol sulfate 90 mcg/actuation 2 puffs inhalation Q6H PRN 6.7 grams 0RF shortness of breath or wheezing Coding Level of Care Code Est Pt Level 3 (77534) Diagnoses Bronchitis J40
[2022-11-12 09:25] VITALS: BP 126/78; PULSE 105; TEMP 36.4; O2SAT 96
== END 2022-11-12 11:51 | disposition home or self-care (01) ==
PROVIDERS: PCP Physician Assistant; Visit Provider Physician Assistant
DX: J40 Bronchitis, not specified as acute or chronic (principal)
CPT/HCPCS: 99213

== ENCOUNTER 2022-11-12 10:12 | Outpatient (REF) | payer OTHER, MEDICAID, SELFPAY ==
--- NOTE | ~2022-11-12 | XR_ITS ---
EXAMINATION: XR CHEST CLINICAL INFORMATION: Cough. COMPARISON: None available. TECHNIQUE: 2 views of the chest were obtained. FINDINGS: The lungs are clear. Incidental azygos fissure. There are no pleural effusions. The heart and mediastinal structures are unremarkable. XR/XR chest 2V IMPRESSION: No acute cardiopulmonary process.
[2022-11-12 13:39] LABS: D Dimer High Sensitivity < 150 NG/ML
== END 2022-11-12 10:13 | disposition home or self-care (01) ==
LOC: HO.HMGCX 10:12
PROVIDERS: PCP Physician Assistant; Visit Provider Physician Assistant
DX: R05.9 Cough, unspecified (principal)
CPT/HCPCS: 36415; 71046; 85379

== ENCOUNTER → 2022-12-06 10:00 | Outpatient (BNVA) | payer SELFPAY | PROVIDERS: PCP Physician Assistant; Visit Provider Physician Assistant Medical | DX: Z02.79 Encounter for issue of other medical certificate (principal) ==

== ENCOUNTER 2022-12-10 09:45 | Outpatient (AMB) | payer OTHER, MEDICAID, SELFPAY ==
[2022-12-10 09:53] VITALS: BMI 33.2
--- NOTE | 2022-12-10 09:53 | A.OFFVIS_ITS ---
Intake Vital Signs 12/10/22 09:53 Height 6 ft 1 in Weight 252 lb BMI 33.2 Intake Visit Reasons: Pre-Op KANU RT Knee 12/22/22NE Intake Note: South is a 41 year old female who presents today for a pre op appointment for his KANU RT knee 12/22/22 NE. Allergies gluten Adverse Reaction (Verified 11/12/22 09:24) Gastrointestinal Upset milk Adverse Reaction (Verified 11/12/22 09:24) Gastrointestinal Upset HPI Pre-Op KANU RT Knee 12/22/22NE HPI Details 41-year-old right hand dominant male who presents in the office today for his preoperative history and physical exam prior to a right knee removal of hardware to be performed on 12/22/[address] Kramer. 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 He states he can sit a lot. He has taken Percocet 5 mg for many years. He was taking it in 2017 5 mg Q6H. Patient has an allergy history, as follows: -Gluten; GI upset -Milk; GI upset Patient is currently taking, as follows: -Acetaminophen ER 650 mg PO Q12H -Azithromycin 250 mg PO daily -Clonazepam 1 mg PO TID PRN -Doxycycline hyclate 100 mg PO BID -Duloxetine 30 mg PO daily -Gabapentin 300 mg PO daily -Ibuprofen 800 mg PO TID -Loperamide 2 mg PO Q6H PRN -Prednisone 200 mg PO daily -Sildenafil 100 mg PO daily -Sumatriptan succinate 100 mg PO as directed -Tizanidine 4 mg PO bedtime Patient has a medical history, as follows: -Hyperlipidemia -Anxiety -Major depressive disorder -Erectile dysfunction -Cervical disc disease with myelopathy -Axillary hyperhidrosis -Type 2 diabetes mellitus -Migraines -Vitiligo -Opiate dependence; Suboxone Patient has a surgical history, as follows: -History of ankle surgery 2019 tib/fib repair -History of removal of cyst Patient has a social history, as follows: -Tobacco; 1pack a day [facility] Medical History (Updated 11/24/22 @ 07:59 by Hammad Lopez PA-C) Bronchitis Cervical disc disease with myelopathy Depression H/O fracture of tibia Hidradenitis suppurativa Low libido Microscopic hematuria Migraines Obesity Opiate dependence Smoker Thoracic disc disease Tibia/fibula fracture Tibial plateau fracture, right Type 2 diabetes mellitus Vitiligo Surgical History History of ankle surgery History of removal of cyst Family History Father CVD (cardiovascular disease) Brother Heart attack, Onset Age: 50 Social History Housing: House Are you a primary medicare contact specialist to a significant other at home: No Do you presently have visiting nurse or other home services: No Alcohol intake: never Patient Tobacco Use Status: Current everyday Tobacco user Cigarette Packs Per Day: 1 Cigarettes Per Day: 20.0 Years Smoked: 25 e-Cigarette/Vaping Use: Never Used Second Hand Smoke Exposure: No service: No Current occupational status: employed 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 Cognitive needs: No Hearing needs: No Vision needs: No Review of Systems Const All systems reviewed & are unremarkable except as noted in HPI and below Physical Exam Vital Signs: BMI result Body Mass Index 33.2 Const General: cooperative, healthy appearing, comfortable, no acute distress, well developed, alert and awake Orientation/consciousness: patient oriented x3 HEENT Head: Yes normal to inspection, Yes normocephalic and Yes atraumatic Eyes General: appearance normal, both eyes and all related structures EOM: EOMs intact bilaterally Neck Neck: Yes normal visual inspection and Yes no lymphadenopathy Resp Effort & Inspection: normal respiratory effort and able to speak in complete sentences Cardio Jugular venous distension: no JVD Rate: regular rate Peripheral pulses: Peripheral pulses 2+ throughout GI Inspection: Yes normal to inspection Palpation (GI): Soft to palpation Skin General skin exam: no rashes or lesions noted Rashes: no rashes Neuro General: patient oriented x3 Extrem Other: Right leg: Mild antalgia with gait Crepitus with ROM Trace effusion TTP medial joint line & medial hardware Psych Appearance: grossly normal Mental Status: mental status grossly normal Affect: normal affect Attitude: cooperative Assessment & Plan Assessment & Plan (1) Post-traumatic osteoarthritis of right knee: Code(s): M17.31 - Unilateral post-traumatic osteoarthritis, right knee (2) Retained orthopedic hardware: Code(s): Z96.9 - Presence of functional implant, unspecified (3) Tibial plateau fracture, right: Comment: S/P ORIF in 2017, at [facility] Code(s): S82.141A - Displaced bicondylar fracture of right tibia, initial encounter for closed fracture Qualifiers: Encounter type: sequela Fracture type: closed Qualified Code(s): S82.141S - Displaced bicondylar fracture of right tibia, sequela (4) Abnormality of gait: Code(s): R26.9 - Unspecified abnormalities of gait and mobility Plan Mr. Noble is a 41-year-old right hand dominant male who presents in the office today for his preoperative history and physical exam prior to a right knee removal of hardware to be performed on 12/22/[address] Kramer. 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 He states he can sit a lot. He has taken Percocet 5 mg for many years. He was taking it in 2017 5 mg Q6H. Patient has an allergy history, as follows: -Gluten; GI upset -Milk; GI upset Patient is currently taking, as follows: -Acetaminophen ER 650 mg PO Q12H -Azithromycin 250 mg PO daily -Clonazepam 1 mg PO TID PRN -Doxycycline hyclate 100 mg PO BID -Duloxetine 30 mg PO daily -Gabapentin 300 mg PO daily -Ibuprofen 800 mg PO TID -Loperamide 2 mg PO Q6H PRN -Prednisone 200 mg PO daily -Sildenafil 100 mg PO daily -Sumatriptan succinate 100 mg PO as directed -Tizanidine 4 mg PO bedtime Patient has a medical history, as follows: -Hyperlipidemia -Anxiety -Major depressive disorder -Erectile dysfunction -Cervical disc disease with myelopathy -Axillary hyperhidrosis -Type 2 diabetes mellitus -Migraines -Vitiligo -Opiate dependence; Suboxone Patient has a surgical history, as follows: -History of ankle surgery 2019 tib/fib repair -History of removal of cyst Patient has a social history, as follows: -Tobacco; 1pack a day I educated the patient that he will need to stop taking the Ibuprofen 1 week prior to surgery. He will drop his [place] paperwork off for the office to fill out next week. I discussed in detail the procedure and what to expect pre and post operatively. We discussed the risks, benefits and alternatives to the surgery as well as the rehabilitation course. The risks; which include, but are not limited to infection, bleeding, nerve injury, ongoing pain, swelling, and stiffness, perioperative risk of injury to bones and soft tissues, and blood clots. I have answered all questions and with their understanding they have consented to move forward with a right knee removal of hardware to be performed on 12/22/[address] Gokul Kramer. Follow up will be at the post operative appointment on 12/27/2022 at 1:30 pm, or sooner if needed. Patient Instructions: Scribed for Megan Umanzor PA-C by Faiza Ken medical collector, on 12/10/2022 at 9:48 am, EST. Coding Level of Care Code Global (22686) Diagnoses Post-traumatic osteoarthritis of right knee M17.31 Retained orthopedic hardware Z96.9 Tibial plateau fracture, right S82.141S Encounter type: sequela Fracture type: closed Abnormality of gait R26.9
== END 2022-12-10 10:26 | disposition home or self-care (01) ==
PROVIDERS: PCP Physician Assistant; Visit Provider Physician Assistant
DX: M17.31 Unilateral post-traumatic osteoarthritis, right knee (principal); Z96.9 Presence of functional implant, unspecified; S82.141D Displaced bicondylar fracture of right tibia, subsequent encounter for closed fracture with routine healing; R26.9 Unspecified abnormalities of gait and mobility
CPT/HCPCS: 99024

== ENCOUNTER → 2022-12-10 09:45 | Outpatient (BNVA) | payer OTHER, SELFPAY | PROVIDERS: PCP Physician Assistant; Visit Provider Physician Assistant ==

== ENCOUNTER 2022-12-22 07:49 | Day surgery (SDC) | payer OTHER, MEDICAID, SELFPAY ==
[2022-12-17 15:31] VITALS: BMI 33.2
--- NOTE | 2022-12-21 08:47 | P.CONAN_ITS ---
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 opiate use (Acute) Obese (Acute) Impaired glucose metabolism (Acute) Annual physical exam (Acute) History of herniated intervertebral disc (Acute) Screening for STD (sexually transmitted disease) (Acute) Axillary hyperhidrosis (Acute) Type 2 diabetes mellitus (Acute) Smoker (Acute) Past Medical History Medical History Anxiety Depression Microscopic hematuria Low libido Tibial plateau fracture, right H/O fracture of tibia Obesity Thoracic disc disease Depression Hidradenitis suppurativa Vitiligo Bronchitis Tibia/fibula fracture Migraines Cervical disc disease with myelopathy Smoker Type 2 diabetes mellitus Opiate dependence Family History Family History Father CVD (cardiovascular disease) Brother Heart attack, Onset Age: 50 Surgical History Surgical History History of removal of cyst History of ankle surgery Social History Social History Housing: House Are you a primary childcare attendant to a significant other at home: No Do you presently have visiting nurse or other home services: No Alcohol intake: never Patient Tobacco Use Status: Current everyday Tobacco user Tobacco use type: Cigarette Cigarette Packs Per Day: 1 Cigarettes Per Day: 20.0 Years Smoked: 25 Smoked in Last 30 Days: Yes e-Cigarette/Vaping Use: Never Used Second Hand Smoke Exposure: No Use of substances other than those prescribed or required for medical reasons: No Are you DNR?: No Advance Directives: No Advance Directives Information Provided: Yes service: No Current occupational status: employed 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 Cognitive needs: No Hearing needs: No Vision needs: No Meds Allergies Allergy/AdvReac Type Severity Reaction Status Date / Time gluten AdvReac Gastrointestinal Verified 11/12/22 09:24 Upset milk AdvReac Gastrointestinal Verified 11/12/22 09:24 Upset Home Medications Medication Instructions Recorded Confirmed Last Taken Type clonazepam 1 mg tablet 1 mg PO TID PRN Anxiety 11/26/21 12/17/22 Unknown History tizanidine 4 mg tablet 4 mg PO BEDTIME 11/26/21 12/17/22 Unknown History duloxetine 30 mg capsule,delayed 30 mg PO DAILY 04/14/22 12/17/22 Unknown History release sumatriptan succinate 100 mg tablet 100 mg PO DIRECTED 04/14/22 12/17/22 Unknown History Exam Exam Date and Time: December 21, 2022 0847 Height,Weight and Vital Signs: Height 6 ft 1 in Weight 114.305 kg Pertinent Lab Results Pertinent Lab Results: Laboratory Tests 04/17/22 10:51 WBC 11.7 H Hgb 16.9 Hct 50.8 Plt Count 214 Sodium 146 H Potassium 3.9 Chloride 109 H Carbon Dioxide 23 BUN 17 H Creatinine 0.95 Assessment and Plan Assessment Anesthesia Assessment: Chart Reviewed Documented by User: Katherin Baeza MD 12/22/22 08:49 PMFSH Past Medical History Medical History Anxiety Depression Microscopic hematuria Low libido Tibial plateau fracture, right H/O fracture of tibia Obesity Thoracic disc disease Depression Hidradenitis suppurativa Vitiligo Bronchitis Tibia/fibula fracture Migraines Cervical disc disease with myelopathy Smoker Type 2 diabetes mellitus Opiate dependence Family History Family History Father CVD (cardiovascular disease) Brother Heart attack, Onset Age: 50 Surgical History Surgical History History of removal of cyst History of ankle surgery History of Problems with Anesthesia: No Social History Social History Housing: House Are you a primary childcare attendant to a significant other at home: No Do you presently have visiting nurse or other home services: No Alcohol intake: never Patient Tobacco Use Status: Current everyday Tobacco user Tobacco use type: Cigarette Cigarette Packs Per Day: 1 Cigarettes Per Day: 20.0 Years Smoked: 25 Smoked in Last 30 Days: Yes e-Cigarette/Vaping Use: Never Used Second Hand Smoke Exposure: No Use of substances other than those prescribed or required for medical reasons: No Are you DNR?: No Advance Directives: No Advance Directives Information Provided: Yes service: No Current occupational status: employed 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 Cognitive needs: No Hearing needs: No Vision needs: No Meds Allergies Allergy/AdvReac Type Severity Reaction Status Date / Time gluten AdvReac Gastrointestinal Verified 11/12/22 09:24 Upset milk AdvReac Gastrointestinal Verified 11/12/22 09:24 Upset Home Medications Medication Instructions Recorded Confirmed Last Taken Type clonazepam 1 mg tablet 1 mg PO TID PRN Anxiety 11/26/21 12/17/22 Unknown History tizanidine 4 mg tablet 4 mg PO BEDTIME 11/26/21 12/17/22 Unknown History duloxetine 30 mg capsule,delayed 30 mg PO DAILY 04/14/22 12/17/22 Unknown History release sumatriptan succinate 100 mg tablet 100 mg PO DIRECTED 04/14/22 12/17/22 Unknown History Exam Airway Mallampati Class: III TM Dist: >3cm Neck ROM: Full Loose/Missing/Broken Teeth: No Heart: RRR Lungs: CTA Assessment and Plan Assessment Anesthesia Assessment: Anesthesia Plan Discussed Final Anesthetic Review History of Problems with Anesthesia: No NPO: Yes ASA Class: II Final Preanesthetic Review: Meds/Allgs Chart Reviewed, Consent Obtained/Reviewed and Anes Risks/Benef Reviewed Patient Risk: Low Procedure Risk: Low Anesthetic Plan Anesthetic Plan: GA Disposition: Standard PACU
[2022-12-22] VITALS (16 sets, daily range): BP systolic 119–135; BP diastolic 79–93; PULSE 65–84; RESP 12–20; TEMP 36.3–36.9; O2SAT 95–99; BMI 33.6
--- NOTE | ~2022-12-22 | FL_ITS ---
EXAMINATION: XR FLUOROSCOPY WITH IMAGES CLINICAL INFORMATION: Removal hardware right 2016. COMPARISON: None available. TECHNIQUE: Fluoroscopy Supervised By: Dr. Gokul Kramer. Fluoroscopy Time: 0.0 minutes. Cumulative Dose: 0.177 mGy. DAP: 0.14569 Gycm2. Images: 1. FINDINGS: Fluoroscopic image demonstrates surgical instrument projecting over the proximal medial right tibia. There is evidence of old medial tibial plateau fracture. There is a single surgical screw seen in the proximal medial tibia. FL/FL guidance in OR IMPRESSION: Fluoroscopy guidance for hardware removal.
--- NOTE | 2022-12-22 09:16 | PC.NURSE ---
pt vasovagal with iv hr 44 sbrady, pale diaphoretic, hob trendelenberg cool cloth bp 135/94, ivf LR w.o. with hr 57
--- NOTE | 2022-12-22 10:40 | P.BOP_ITS ---
Brief Operative Note Date of Service: 12/22/22 Pre-op diagnosis: Right tibia painful hardware Post-op diagnosis: same Procedure: KANU right tibia Surgeon: Gokul Kramer MD Anesthesia: GETA Was an Petroleum Production Engineer used for this Procedure?: Yes Petroleum Production Engineer: Megan Umanzor Estimated blood loss (mL): 35 Tourniquet time (min): 20 IV fluids (mL): 800 Pathology: none sent Condition: stable Disposition: PACU
[2022-12-22] MEDS: fentaNYL citrate/PF 100 MCG/2 ML VIAL 50 MCG IVPUSH ×2 (10:54→10:59)
[2022-12-22] MEDS: oxyCODONE HCl Immed Release 5 MG TABLET PO (10:57)
[2022-12-22] MEDS: HYDROmorphone HCl 0.5 MG/0.5 ML SYRINGE 0.25 MG IVPUSH ×3 (11:32→11:44)
--- NOTE | 2022-12-28 11:33 | W.PM.OPN ---
Operative Note Operative Note Date of Service: 12/22/22 Narrative: Date of Service: 12/22/22 Pre-op diagnosis: Right tibia painful hardware Post-op diagnosis: same Procedure: KANU right tibia Surgeon: Gokul Kramer MD Anesthesia: GETA Was an Landscape Architecture Teacher used for this Procedure?: Yes Landscape Architecture Teacher: Megan Umanzor Estimated blood loss (mL): 35 Tourniquet time (min): 20 IV fluids (mL): 800 Pathology: none sent Condition: stable Disposition: PACU Patient was brought to the operating room and placed supine on the surgical table. He was prepped and draped in standard sterile fashion and a time out was called to identify proper site, proper procedure and IV antibiotics per weight were administered. I began by making a 4 cm incision over the prior incision over the Medial aspect of the right tibial plateau. the proximal 5 screws were removed without difficulty. I then turned my attention to the distal aspect of the plate. Poke incisions were made and the for remaining nonlocking screws were removed without difficulty. The plate was then removed. The screw holes were cleaned up with combination of rongeur and curette and the wound was irrigated copiously. The 1 remaining anterior screw was deep to bone over the level of the tibial tubercle and I elected not to remove this at this time . I then irrigated and closed with absorbable suture and oxana. Patient was placed into a sterile dressing extubated and brought to the recovery room in stable condition. There were no known complications.
== END 2022-12-22 12:52 | disposition home or self-care (01) ==
LOC: HO.SSS 07:50
PROVIDERS: PCP Physician Assistant; Visit Provider Orthopaedic Surgery
PROC: (CPT 20680; principal; 2022-12-22 09:40)
DX: T84.84XA Pain due to internal orthopedic prosthetic devices, implants and grafts, initial encounter (principal); Y79.2 Prosthetic and other implants, materials and accessory orthopedic devices associated with adverse incidents; M79.661 Pain in right lower leg; M17.31 Unilateral post-traumatic osteoarthritis, right knee; Z96.9 Presence of functional implant, unspecified; M50.00 Cervical disc disorder with myelopathy, unspecified cervical region; R26.9 Unspecified abnormalities of gait and mobility; G43.909 Migraine, unspecified, not intractable, without status migrainosus; F11.20 Opioid dependence, uncomplicated; E11.9 Type 2 diabetes mellitus without complications; L80 Vitiligo; E66.9 Obesity, unspecified; E78.5 Hyperlipidemia, unspecified; F41.1 Generalized anxiety disorder; F32.A Depression, unspecified; Z68.33 Body mass index [BMI] 33.0-33.9, adult; Z79.1 Long term (current) use of non-steroidal anti-inflammatories (NSAID); Z79.52 Long term (current) use of systemic steroids; Z98.890 Other specified postprocedural states; Z79.899 Other long term (current) drug therapy; F17.210 Nicotine dependence, cigarettes, uncomplicated
CPT/HCPCS: 20680; J0131; J0690; J1100; J1170; J1885; J2250; J2405; J2795; J3010

== ENCOUNTER → 2022-12-22 07:49 | Outpatient (BNV) | payer OTHER, MEDICAID, SELFPAY | PROVIDERS: PCP Physician Assistant; Visit Provider Orthopaedic Surgery | DX: T84.84XA Pain due to internal orthopedic prosthetic devices, implants and grafts, initial encounter (principal) | CPT/HCPCS: 20680 ==

== ENCOUNTER 2022-12-27 13:16 | Outpatient (AMB) | payer OTHER, MEDICAID, SELFPAY ==
--- NOTE | 2022-12-27 13:27 | A.OFFVIS_ITS ---
Intake Intake Visit Reasons: PO KANU RT knee 12/22/22NE Intake Note: South is a 41 year old female who presents today for his P/O appointment for his KANU RT knee 12/22/22 NE. States has swelling and stiffness mainly in the mornings. Allergies gluten Adverse Reaction (Verified 12/27/22 13:29) Gastrointestinal Upset milk Adverse Reaction (Verified 12/27/22 13:29) Gastrointestinal Upset HPI PO KANU RT knee 12/22/22NE HPI Details 42-year-old male who returns to the [facility] today for post-op right knee KANU, 12/22/[address] Kramer. He continues to have swelling and stiffness in his knee which is worse in the morning. He is doing well otherwise and has no concerns today. [facility] Medical History Anxiety Depression Microscopic hematuria Low libido Tibial plateau fracture, right H/O fracture of tibia Obesity Thoracic disc disease Depression Hidradenitis suppurativa Vitiligo Bronchitis Tibia/fibula fracture Migraines Cervical disc disease with myelopathy Smoker Type 2 diabetes mellitus Opiate dependence Surgical History History of removal of cyst History of ankle surgery Family History Father CVD (cardiovascular disease) Brother Heart attack, Onset Age: 50 Social History Housing: House Are you a primary child care coordinator to a significant other at home: No Do you presently have visiting nurse or other home services: No Alcohol intake: never Patient Tobacco Use Status: Current everyday Tobacco user Tobacco use type: Cigarette Cigarette Packs Per Day: 1 Cigarettes Per Day: 20.0 Years Smoked: 25 e-Cigarette/Vaping Use: Never Used Second Hand Smoke Exposure: No service: No Current occupational status: employed 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 He does have some swelling in the right knee. There is no ecchymosis. Calf supple, nontender. NVI. Assessment & Plan Assessment & Plan (1) Retained orthopedic hardware: Code(s): Z96.9 - Presence of functional implant, unspecified Plan Sutures removed today, steri strips applied. I did ref him to physical therapy for ROM and quad strengthening. He will remain out of work until his follow-up in 4-5 weeks, sooner if needed. Orders: Orders PT Evaluation and Treatment Today Z96.9 - Presence of functional implant, unspecified Medications: Changed From oxycodone-acetaminophen 5-325 mg (Percocet) Partial Fill upon patient request. 1 tab PO Q6H 7 days PRN 28 tabs 0RF pain (scale score 4-6) To oxycodone-acetaminophen 5-325 mg (Percocet) Partial Fill upon patient request. 1 tab PO Q8H PRN 21 tabs 0RF pain (scale score 4-6) 7 days Patient Instructions: Scribed for Dino Hubre PA-C, by Kirt Venegas medical office rep, on 12/27/2022 at 1:30 PM EST. I, Dino Huber PA-C, have personally reviewed and agree with the information entered by the scribe. Coding Level of Care Code Global (77429) Diagnoses Retained orthopedic hardware Z96.9
== END 2022-12-27 14:01 | disposition home or self-care (01) ==
PROVIDERS: PCP Physician Assistant; Visit Provider Physician Assistant
DX: Z96.9 Presence of functional implant, unspecified (principal)
CPT/HCPCS: 99024

== ENCOUNTER → 2022-12-27 13:16 | Outpatient (BNVA) | payer OTHER, MEDICAID, SELFPAY | PROVIDERS: PCP Physician Assistant; Visit Provider Physician Assistant ==

== ENCOUNTER 2023-02-10 11:04 | Outpatient (AMB) | payer OTHER, MEDICAID, SELFPAY ==
--- NOTE | 2023-02-10 11:14 | A.OFFVIS_ITS ---
Intake Vital Signs 02/10/23 11:18 Height 6 ft 1 in Weight 250 lb BMI 33.0 Intake Visit Reasons: PO KANU RT Knee 12/22/22NE Intake Note: South dennis 42 year old male presents today for a post operative right knee KANU, DOS 12/29/22. Patient reports he is doing well, he continues to have intermittent pain at the medial aspect of knee. States numbness in his lower leg with certain leg positions. Production Operations Engineer: Production Operations Engineer Present Allergies gluten Adverse Reaction (Verified 02/10/23 11:20) Gastrointestinal Upset milk Adverse Reaction (Verified 02/10/23 11:20) Gastrointestinal Upset HPI PO KANU RT Knee 12/22/22NE HPI Details 42-year-old male who returns to the [facility] today for post-op right knee KNAU, 12/22/[address] Kramer. He continues to have intermittent pain at the medial aspect of his knee as well as numbness in her lower leg with certain leg positions. She is doing well otherwise and has no concerns today. [facility] Medical History Anxiety Depression Microscopic hematuria Low libido Tibial plateau fracture, right H/O fracture of tibia Obesity Thoracic disc disease Depression Hidradenitis suppurativa Vitiligo Bronchitis Tibia/fibula fracture Migraines Cervical disc disease with myelopathy Smoker Type 2 diabetes mellitus Opiate dependence Surgical History History of removal of cyst History of ankle surgery Family History Father CVD (cardiovascular disease) Brother Heart attack, Onset Age: 50 Social History Housing: House Are you a primary care connector to a significant other at home: No Do you presently have visiting nurse or other home services: No Alcohol intake: never Patient Tobacco Use Status: Current everyday Tobacco user Tobacco use type: Cigarette Cigarette Packs Per Day: 1 Cigarettes Per Day: 20.0 Years Smoked: 25 e-Cigarette/Vaping Use: Never Used Second Hand Smoke Exposure: No service: No Current occupational status: employed 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 No erythema or joint effusion. Full ROM. He does complain of medial sided joint pain. Calf supple, nontender. NVI. Assessment & Plan Assessment & Plan (1) Retained orthopedic hardware: Code(s): Z96.9 - Presence of functional implant, unspecified Plan He will continue to work on home exercises from physical therapy. He will increase activity as tolerated. I did explain that over the next 6 weeks if he continues to have discomfort in the knee, he can contact me for steroid injection office. He will return to work on February 14 without restrictions and contact the office if needed. Patient Instructions: Scribed for Dino Huber PA-C, by Kirt Venegas medical unit secretary, on 02/10/2023 at 11:15 AM EST. I, Dino Huber PA-C, have personally reviewed and agree with the information entered by the scribe. Coding Level of Care Code Global (06560) Diagnoses Retained orthopedic hardware Z96.9
[2023-02-10 11:18] VITALS: BMI 33.0
== END 2023-02-10 11:45 | disposition home or self-care (01) ==
PROVIDERS: PCP Physician Assistant; Visit Provider Physician Assistant
DX: Z96.9 Presence of functional implant, unspecified (principal)
CPT/HCPCS: 99024

== ENCOUNTER → 2023-02-10 11:04 | Outpatient (BNVA) | payer OTHER, MEDICAID, SELFPAY | PROVIDERS: PCP Physician Assistant; Visit Provider Physician Assistant ==

== ENCOUNTER 2023-02-21 12:00 | Outpatient (RCR) | payer OTHER, MEDICAID, SELFPAY ==
--- NOTE | 2023-01-27 14:39 | MHC.PT.EP ---
[facility] [place] Office [place] Office [place] Office [address] [phone] F: [phone] F: [phone] F: [phone] F: [phone] Physical Therapy Plan of Care Date of Evaluation: 01/25/23 Date of Surgery: 12/22/22 Diagnosis: Removal of Hardware R tibial plateau Assessment: Pt is a 42yo male who was referred to PT s/p hardware removal R knee from original injury in 2017. Pt also with R knee OA, exam reveals some hip weakness, pelvic obliquity and abnormal mobility. Skilled PT indicated to reduce pain, normalize R knee ROM, promote hip/core strength, normalize gait pattern. Pt is motivated to participate and is compliant with POC. Frequency and Duration: The patient will be seen 1-2x/week x 4 weeks Short Term Goals: 1. In 2 weeks R knee will demonstrate normal ROM. 2. In 2 weeks, patient will be able to hold SLS R LE, with 5/5 MMT R hip. 3. In 2 weeks, patient will not report feeling a LLD during gait. Cantilever Crane Operator Goals: 1. In 4 weeks patient will be able to complete full squat while holding 20#. 2. In 4 weeks patient will be able to negotiate 1 flight stairs with reciprocal pattern and 1 rail I. 3. In 4 weeks patient will report <2/10 pain R knee and return to PLOF. Treatment Plan: Modalities to reduce pain, spasms and effusion. Manual therapy to restore motion and function. Therapeutic exercise to improve strength and flexibility. Neuromuscular re-education for posture and balance. Therapeutic activities to return to functional activities of daily living. Electronically signed by: Tonia Kenyon PT, DPT Please sign and return to therapist. Thank you for your referral.
--- NOTE | 2024-02-15 11:46 | MHC.PT.DC ---
[facility] [place] [facility] [place] [facility] [place] Office [address] Delilah Inman [address] [phone] F: [phone] F: [phone] F: [phone] F: [phone] Physical Therapy Discharge Report Diagnosis: Removal of Hardware R tibial plateau Date of Surgery: 12/22/22 Date of Evaluation: 01/25/23 Date of Discharge: 03/25/23 Treatments to Date: 5 Cancellations to Date: No Shows to Date: Discharge Status: Achieved Goals Improved Function Discharge Summary: Pt is a 42yo male who was referred to PT s/p hardware removal R knee from original injury in 2016. Pt also with R knee OA, exam reveals some hip weakness, pelvic obliquity and abnormal mobility. Skilled PT indicated to reduce pain, normalize R knee ROM, promote hip/core strength, normalize gait pattern. Pt is motivated to participate and is compliant with POC. Pt participated in 5 treatment sessions, R knee flexion ROM improved to 132 degrees, pain reduced from 4/10 to 2/10, and he achieved LTG of lifting 20# weight off floor. Pt would benefit from continued HEP upon D/C. Thank you for this referral. Electronically signed by: Tonia Kenyon PT, DPT Please sign and return to therapist. Thank you for your referral.
== END 2024-02-15 11:46 | disposition home or self-care (01) ==
LOC: HO.PT 12:00
PROVIDERS: PCP Physician Assistant; Visit Provider Physician Assistant
DX: Z96.9 Presence of functional implant, unspecified (principal)
CPT/HCPCS: 97110; 97116; 97140; 97161; 97530

== ENCOUNTER 2023-04-20 09:00 | Outpatient (AMB) | payer OTHER, SELFPAY ==
[2023-04-20 09:04] VITALS: BP 134/88; PULSE 101; O2SAT 96; BMI 33.0
--- NOTE | 2023-04-20 09:04 | MHC.PC.OV ---
Vital Signs 04/20/23 09:04 Height 6 ft 1 in Weight 250 lb BMI 33.0 BP 134/88 Blood Pressure Location Lt brachial Position Sitting Pulse 101 H Pulse Source Pulse Oximeter Pulse Oximetry (%) 96 Oxygen Delivery Method Room Air Intake Visit Reasons: f/u smoking cessation . Volunteer Services Manager Required: No Allergies gluten Adverse Reaction (Verified 04/20/23 09:17) Gastrointestinal Upset milk Adverse Reaction (Verified 04/20/23 09:17) Gastrointestinal Upset Medication List - Last Reconciled 04/20/23 by Hammad Lopez PA-C acetaminophen ER 650 mg PO Q12H 30 days albuterol sulfate 90 mcg/actuation 2 puffs inhalation Q6H PRN clonazepam 1 mg PO TID PRN duloxetine 30 mg PO DAILY gabapentin 300 mg PO DAILY 30 days ibuprofen 800 mg PO TID 15 days loperamide 2 mg PO Q6H PRN 30 days oxycodone-acetaminophen 5-325 mg (Percocet) 1 tab PO Q8H PRN 7 days quetiapine mg PO sildenafil (Viagra) 100 mg PO DAILY 7 days sumatriptan succinate 100 mg PO DIRECTED tizanidine 4 mg PO BEDTIME Tobacco use date assessed: 04/20/23 HPI f/u smoking cessation . HPI Details Patient is a 42 here today for a follow-up visit .? Patient has a past medical history significant for h/o opiate dependence (in remission now off Suboxone), type 2 diabetes cervical disc disease with myopathy, tobacco use disorder Concern--> reports as of lately feeling somewhat cold all the time. ? Cold intolerance. Will check his TSH. .. Tobacco use disorder:? Patient does understand he needs to quit smoking and would like to wean smoking on his own.? He declines my offers to give nicotine replacement therapy. . Type 2 diabetes:? Has been diet controlled with lifestyle. Todays A1c - 6.8 from 5.9.? He does report often feeling somewhat sweaty , unclear if this is due to his elevated blood sugars as of late. PLAN: He is interested in starting G LP 1 to help control diabetes and added benefit of weight loss. Will start Trulicity 0.75. .. History of tib-fib fracture:? Does have a history of a tib-fib fracture secondary to trauma with hardware repair placement at [facility] ? Dr. rodarte. He reports he continues to have right knee pain and pain in his anterior pearce. He has followed up with [place] [facility] and had removal of hardware . [facility] Medical History Anxiety Depression Microscopic hematuria Low libido Tibial plateau fracture, right H/O fracture of tibia Obesity Thoracic disc disease Depression Hidradenitis suppurativa Vitiligo Bronchitis Tibia/fibula fracture Migraines Cervical disc disease with myelopathy Smoker Type 2 diabetes mellitus Opiate dependence Surgical History History of removal of cyst History of ankle surgery Family History Father CVD (cardiovascular disease) Brother Heart attack, Onset Age: 50 Social History Housing: House Are you a primary child care cook to a significant other at home: No Do you presently have visiting nurse or other home services: No Alcohol intake: never Patient Tobacco Use Status: Current everyday Tobacco user Tobacco use type: Cigarette Cigarette Packs Per Day: 1 Cigarettes Per Day: 20.0 Years Smoked: 25 e-Cigarette/Vaping Use: Never Used Second Hand Smoke Exposure: No service: No Current occupational status: employed 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 How often do you have a drink containing alcohol?: Never 3. How often do you have six or more drinks on one occasion?: Never Total Score: 0 ERIN-7 AMB Questionnaire ERIN-7 Date ERIN - 7 assessed: 04/14/22 Feeling nervous, anxious, or on edge: 0 = Not at all Not being able to stop or control worryin = Not at all Worrying too much about different things: 0 = Not at all Trouble relaxin = Not at all Being so restless that it is hard to sit still: 0 = Not at all Becoming easily annoyed or irritable: 0 = Not at all Feeling afraid as if something awful might happen: 0 = Not at all Total ERIN-7 score (0-4 normal; 5-9 mild; 10-14 moderate; 15-21 severe): 0 Source: Developed by Drs. Agustin Cerda, Micki Harris, Adam Adan and colleagues, with an educational basilio from [employer]. ERIN-7 Assessment Billing ERIN-7 Assessment Tool: ERIN-7 Assessment 81588 Review of Systems Const Denies headache(s) Eyes Denies loss of vision ENT Denies vertigo, Denies dizziness, Denies headache(s) and Denies sore throat Card Denies chest pain, Denies leg edema and Denies lightheadedness Resp Denies cough, Denies hemoptysis and Denies wheezing GI Denies abdominal pain, Denies melena, Denies constipation, Denies diarrhea and Denies vomiting Denies dysuria, Denies urinary frequency and Denies urinary urgency Musc Denies arthralgias, Denies joint swelling, Denies numbness and Denies tingling Neuro Denies Abnormal speech present, Denies behavioral changes, Denies vertigo, Denies dizziness, Denies headache(s), Denies loss of vision, Denies memory loss, Denies numbness and Denies tingling Psych Denies anxiety, Denies behavioral changes, Denies depression, Denies memory loss and Denies panic attacks Wyatt/Lymph Denies easy bleeding and Denies easy bruising Aller/Immun Denies wheezing Physical exam (Primary Care) Vital Signs: Last Vital Signs Pulse 101 H 04/20/23 09:04 BP 134/88 04/20/23 09:04 Pulse Ox 96 04/20/23 09:04 Oxygen Delivery Method Room Air 04/20/23 09:04 BMI result Body Mass Index 33.0 BMI Assessment/Plan discussion: High BMI High, discussed plan: lifestyle and weight reduction Tobacco/Smoking Status: Tobacco use Status Tobacco use date assessed 04/20/23 04/20/23 09:11 Patient Tobacco Use Status Current everyday Tobacco 04/20/23 09:11 Tobacco use type Cigarette 04/20/23 09:11 e-Cigarette/Vaping Use Never Used 04/20/23 09:11 Are you ready to quit: Yes Tobacco cessation counseling provided: Yes Items discussed: Nicotine replacement and QuitWorks Relapse Prevention: discussed the importance of a supportive environment, discussed negative mood or depression after quitting, weight gain after smoking is common and discussed dietary, exercise and/or lifestyle changes Number of minutes spent counselin CPT code: 05561 - 4-10 Minutes Thrive Assessment: Date of Thrive Assessment Date Thrive assessed 04/14/22 04/20/23 09:11 Const Other: Obese General: healthy appearing, no acute distress, alert and awake Nutritional Appearance: well nourished Orientation/consciousness: oriented to person, oriented to place and oriented to time HENMT Ears: TM's normal bilaterally General nose exam: Normal nasal mucous membranes and turbinates present Eyes Conjunctivae: conjunctivae normal Sclerae: sclerae normal Pupils: Equal, round and reactive pupils present Neck Neck: Yes no lymphadenopathy and Yes no JVD Thyroid: Thyroid normal Carotids: no bruits Resp Effort & Inspection: normal respiratory effort and not tachypneic Auscultation: no crackles, no rales, no rhonchi and no wheezes Cardio Rate: regular rate Rhythm: regular rhythm Heart sounds: no murmurs and normal S1 and S2 GI Palpation (GI): Soft to palpation, nontender, no hepatomegaly and no splenomegaly Auscultation: normal bowel sounds Skin General skin exam: no rashes or lesions noted and dry skin Neuro General: oriented to person, oriented to place and oriented to time Cranial nerves: Yes Equal, round and reactive pupils present Speech: No Abnormal speech present Gait exam (Neuro): Normal gait present Motor exam (neuro): no tremor noted Extrem Right upper extremity: full ROM Left upper extremity: full ROM Right lower extremity: full ROM; no edema Left lower extremity: full ROM; no edema Psych Mental Status: mental status grossly normal Speech and movement: Normal speech and movement present Affect: normal affect Attitude: cooperative Thought process: Normal thought process present Results AMB Hemoglobin A1c AMB Hemoglobin A1c 6.8 % Last Edit by SARA Lima on 04/20/23 09:15 Results Reviewed Results Reviewed: Laboratory Last Values Hgb A1c (Clinic) 6.8 % (4.0-6.0) H 04/20/23 09:12 Assessment and Plan Assessment & Plan (1) Tobacco dependence: Code(s): F17.200 - Nicotine dependence, unspecified, uncomplicated Plan: Patient does understand he needs to quit smoking. He is willing to try nicotine gum again. 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 Today A1c at 6.8. He is interested in starting Trulicity for added benefit of weight loss. Will follow-up patient in 6 weeks for weight check (3) MDD (major depressive disorder), recurrent episode, moderate: Code(s): F33.1 - Major depressive disorder, recurrent, moderate Plan: Patient reports his depression is well controlled. Does see a mental health psychiatrist who manages his mental health medications. (4) Hyperlipidemia: Code(s): E78.5 - Hyperlipidemia, unspecified Qualifiers: Hyperlipidemia type: mixed hyperlipidemia Qualified Code(s): E78.2 - Mixed hyperlipidemia Plan: Patient has a history borderline high total cholesterol. Will consider statin therapy if LDL remains above 100 due to his cardiovascular risk being elevated due (diabetes, smoker). (5) Obese: Code(s): E66.9 - Obesity, unspecified Qualifiers: Body mass index: BMI 31.0-31.9 Obesity classification: adult class 1 (BMI 30 - 34.9) Obesity type: due to excess calories Serious obesity comorbidity presence: without serious comorbidity Qualified Code(s): E66.09 - Other obesity due to excess calories; Z68.31 - Body mass index [BMI] 31.0-31.9, adult Plan: Patient does understand his BMI is over 30 will work on trying to be more physically active and adapting to better eating habits to reduce his weight. Also willing to try G LP 1 in hopes to lose some weight. (6) Cold intolerance: Code(s): R68.89 - Other general symptoms and signs (7) ERNESTO (obstructive sleep apnea): Code(s): G47.33 - Obstructive sleep apnea (adult) (pediatric) Plan: He does report some daytime somnolence. Does have some risk for obstructive sleep apnea. Has been told he has been snoring loudly and has apneic episodes at night. 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 MDD (major depressive disorder), recurrent episode, moderate F33.1 Mixed hyperlipidemia E78.2 Hyperlipidemia type: mixed hyperlipidemia Class 1 obesity due to excess calories without serious comorbidity with body mass index (BMI) of 31.0 to 31.9 in adult E66.09; Z68.31 Body mass index: BMI 31.0-31.9 Obesity classification: adult class 1 (BMI 30 - 34.9) Obesity type: due to excess calories Serious obesity comorbidity presence: without serious comorbidity Cold intolerance R68.89 ERNESTO (obstructive sleep apnea) G47.33 Additional Codes ERIN-7 Assessment Billing - ERIN-7 Assessment Tool: ERIN-7 Assessment 19383 ([id number]) Vital Signs *Quality* - CPT code: 87067 - 4-10 Minutes ([id number])
== END 2023-04-20 09:46 | disposition home or self-care (01) ==
PROVIDERS: PCP Physician Assistant; Visit Provider Physician Assistant
DX: E11.9 Type 2 diabetes mellitus without complications (principal); Z79.4 Long term (current) use of insulin; F33.1 Major depressive disorder, recurrent, moderate; F17.210 Nicotine dependence, cigarettes, uncomplicated; E78.2 Mixed hyperlipidemia; E66.09 Other obesity due to excess calories; Z68.31 Body mass index [BMI] 31.0-31.9, adult; R68.89 Other general symptoms and signs; G47.33 Obstructive sleep apnea (adult) (pediatric)
CPT/HCPCS: 83036; 99214; 99406

== ENCOUNTER → 2023-06-09 12:53 | Outpatient (REF) | payer OTHER, SELFPAY | LOC: HO.SL 12:53 | PROVIDERS: PCP Physician Assistant; Visit Provider Physician Assistant | DX: G47.33 Obstructive sleep apnea (adult) (pediatric) (principal) | CPT/HCPCS: 95806 ==

== ENCOUNTER → 2023-06-09 13:11 | Outpatient (BNV) | payer OTHER, SELFPAY | PROVIDERS: PCP Physician Assistant; Visit Provider Internal Medicine | DX: G47.33 Obstructive sleep apnea (adult) (pediatric) (principal) | CPT/HCPCS: 95806 ==

== ENCOUNTER 2023-06-27 12:56 | Outpatient (AMB) | payer OTHER, SELFPAY ==
--- NOTE | 2023-06-27 13:01 | MHC.PC.OV ---
Vital Signs 06/27/23 13:02 Height 6 ft 1 in Weight 258 lb BMI 34.0 BP 130/80 Blood Pressure Location Lt brachial Position Sitting Pulse 70 Pulse Source Pulse Oximeter Pulse Oximetry (%) 98 Oxygen Delivery Method Room Air Intake Visit Reasons: follow up Chief Catalyst Operator Required: No Accompanied by: Self / Same As Patient Allergies dulaglutide [From Trulicity] Adverse Reaction (Intermediate, Verified 06/27/23 13:19) shakiness gluten Adverse Reaction (Verified 06/27/23 13:16) Gastrointestinal Upset milk Adverse Reaction (Verified 06/27/23 13:16) Gastrointestinal Upset Medication List - Last Reconciled 06/27/23 by Hammad Lopez PA-C acetaminophen ER 650 mg PO Q12H 30 days albuterol sulfate 90 mcg/actuation 2 puffs inhalation Q6H PRN clonazepam 1 mg PO TID PRN duloxetine 20 mg PO DAILY gabapentin 300 mg PO DAILY 30 days ibuprofen 800 mg PO TID 15 days loperamide 2 mg PO Q6H PRN 30 days nicotine (polacrilex) 2 mg buccal Q2H PRN 15 days quetiapine mg PO sildenafil (Viagra) 100 mg PO DAILY 7 days sumatriptan succinate 100 mg PO DIRECTED tizanidine 4 mg PO BEDTIME Tobacco use date assessed: 04/20/23 Dental Screening Dental Screen Date: 06/27/23 Did you have a dental visit in the last 12 months?: Yes Did you have a dental problem in the last 6 months where you did not have access to dental care?: No Was dental information given to patient?: Patient has dentist HPI follow up HPI Details Patient is a 42 here today for a follow-up visit .? Patient has a past medical history significant for h/o opiate dependence (in remission now off Suboxone), type 2 diabetes cervical disc disease with myopathy, tobacco use disorder .. Tobacco use disorder:? Patient does understand he needs to quit smoking and would like to wean smoking on his own.? He declines my offers to give nicotine replacement therapy. . Type 2 diabetes:? Was previous controlled with diet and lifestyle. Unfortunately gained 8 lb since last office visit. Most recent A1c at 6.8 from 5.9. He did try Trulicity though felt shaky with the medication. He has tried metformin though also had side effects..? He does admit to dietary indiscretion and would like to work on dietary portion control and better eating habits to control his diabetes. .. History of tib-fib fracture:? Does have a history of a tib-fib fracture secondary to trauma with hardware repair placement at [facility] ? Dr. rodarte. He reports he continues to have right knee pain and pain in his anterior pearce. He has followed up with [facility] and had removal of hardware [facility] Medical History Anxiety Depression Microscopic hematuria Low libido Tibial plateau fracture, right H/O fracture of tibia Obesity Thoracic disc disease Depression Hidradenitis suppurativa Vitiligo Bronchitis Tibia/fibula fracture Migraines Cervical disc disease with myelopathy Smoker Type 2 diabetes mellitus Opiate dependence Surgical History History of removal of cyst History of ankle surgery Family History Father CVD (cardiovascular disease) Brother Heart attack, Onset Age: 50 Social History Housing: House Are you a primary critical care paramedic to a significant other at home: No Do you presently have visiting nurse or other home services: No Alcohol intake: never Patient Tobacco Use Status: Current everyday Tobacco user Tobacco use type: Cigarette Cigarette Packs Per Day: 1 Cigarettes Per Day: 20.0 Years Smoked: 25 e-Cigarette/Vaping Use: Never Used Second Hand Smoke Exposure: No service: No Current occupational status: employed 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 1. Little interest or pleasure in doing things: not at all 2. Feeling down, depressed, or hopeless: not at all 3. Trouble falling or staying asleep, or sleeping too much: not at all 4. Feeling tired or having little energy: not at all 5. Poor appetite or overeating: not at all 6. Feeling bad about yourself - or that you are a failure or have let yourself or your family down: not at all 7. Trouble concentrating on things, such as reading the newspaper or watching television: not at all 8. Moving or speaking so slowly that other people could have noticed. Or the opposite - being so fidgety or restless that you have been moving around a lot more than usual: not at all 9. Thoughts that you would be better off or of hurting yourself in some way: not at all Total score: 0 Depression Screening Interpretation: Negative Depression Screening Done: Yes 84799 - PHQ-9 Billing: Yes Source: Developed by Drs. Agustin Cerda, Micki Harris, Adam Adan and colleagues, with an educational basilio from [employer]. Thrive Questionnaire Date Thrive assessed: 06/27/23 I am a: Parent/Caregiver What is your living situation today?: I have a steady place to live Within the past 12 months, did the food you bought not last and you didn't have the money to get more?: Never true Within the past 12 months, did you worry whether your food would run out before you got money to buy more?: Never true Do you have trouble paying for medicines?: No Do you have trouble getting transportation to medical appointments?: No Do you have trouble paying your heating and electricity bill?: No Do you have trouble taking care of your child, family member or friend?: No Do you have trouble with day-to-day activities such as bathing, preparing meals, shopping, managing finances, etc.?: No Are you currently unemployed and looking for a job?: No Are you interested in more education?: No Please select the resources that you would like help with: None Currently or been in a relationship where the following occur: no concerns reported THRIVE Score: 0 AUDIT C Alcohol Use Questionnaire (AUDIT-C) 1. How often do you have a drink containing alcohol?: Monthly or less 2. How many drinks containing alcohol do you have on a typical day when you are drinking?: 1 or 2 3. How often do you have six or more drinks on one occasion?: Never Total Score: 1 ERIN-7 AMB Questionnaire ERIN-7 Date ERIN - 7 assessed: 06/27/23 Feeling nervous, anxious, or on edge: 2 = More than half the days Not being able to stop or control worryin = More than half the days Worrying too much about different things: 2 = More than half the days Trouble relaxin = Several days Being so restless that it is hard to sit still: 1 = Several days Becoming easily annoyed or irritable: 2 = More than half the days Feeling afraid as if something awful might happen: 1 = Several days Total ERIN-7 score (0-4 normal; 5-9 mild; 10-14 moderate; 15-21 severe): 11 Source: Developed by Drs. Agustin Cerda, Micki Harris, Adam Adan and colleagues, with an educational basilio from [employer]. ERIN-7 Assessment Billing ERIN-7 Assessment Tool: ERIN-7 Assessment 97639 Review of Systems Const Denies headache(s) Eyes Denies loss of vision ENT Denies vertigo, Denies dizziness, Denies headache(s) and Denies sore throat Card Denies chest pain, Denies leg edema and Denies lightheadedness Resp Denies cough, Denies hemoptysis and Denies wheezing GI Denies abdominal pain, Denies melena, Denies constipation, Denies diarrhea and Denies vomiting Denies dysuria, Denies urinary frequency and Denies urinary urgency Musc Denies arthralgias, Denies joint swelling, Denies numbness and Denies tingling Neuro Denies Abnormal speech present, Denies behavioral changes, Denies vertigo, Denies dizziness, Denies headache(s), Denies loss of vision, Denies memory loss, Denies numbness and Denies tingling Psych Denies anxiety, Denies behavioral changes, Denies depression, Denies memory loss and Denies panic attacks Wyatt/Lymph Denies easy bleeding and Denies easy bruising Aller/Immun Denies wheezing Physical exam (Primary Care) Vital Signs: Last Vital Signs Pulse 70 06/27/23 13:02 BP 130/80 06/27/23 13:02 Pulse Ox 98 06/27/23 13:02 Oxygen Delivery Method Room Air 06/27/23 13:02 BMI result Body Mass Index 34.0 Tobacco/Smoking Status: Tobacco use Status Tobacco use date assessed 04/20/23 06/27/23 13:02 Patient Tobacco Use Status Current everyday Tobacco 06/27/23 13:02 Tobacco use type Cigarette 06/27/23 13:02 e-Cigarette/Vaping Use Never Used 06/27/23 13:02 Are you ready to quit: No Tobacco cessation counseling provided: Yes Items discussed: Nicotine replacement Relapse Prevention: discussed the importance of a supportive environment, discussed negative mood or depression after quitting, weight gain after smoking is common and discussed dietary, exercise and/or lifestyle changes Number of minutes spent counselin CPT code: 65318 - 4-10 Minutes PHQ-9: PHQ-9 Score PHQ-9: Total score 0 06/27/23 13:17 Depression Screening Interpretation: Negative Thrive Assessment: Date of Thrive Assessment Date Thrive assessed 06/27/23 06/27/23 13:09 Currently or been in a relationship where the following occur: no concerns reported Const General: healthy appearing, no acute distress, alert and awake Nutritional Appearance: well nourished Orientation/consciousness: oriented to person, oriented to place and oriented to time HENMT Ears: TM's normal bilaterally General nose exam: Normal nasal mucous membranes and turbinates present Eyes Conjunctivae: conjunctivae normal Sclerae: sclerae normal Pupils: Equal, round and reactive pupils present Neck Neck: Yes no lymphadenopathy and Yes no JVD Thyroid: Thyroid normal Carotids: no bruits Resp Effort & Inspection: normal respiratory effort and not tachypneic Auscultation: no crackles, no rales, no rhonchi and no wheezes Cardio Rate: regular rate Rhythm: regular rhythm Heart sounds: no murmurs and normal S1 and S2 GI Palpation (GI): Soft to palpation, nontender, no hepatomegaly and no splenomegaly Auscultation: normal bowel sounds Skin General skin exam: no rashes or lesions noted and dry skin Neuro General: oriented to person, oriented to place and oriented to time Cranial nerves: Yes Equal, round and reactive pupils present Speech: No Abnormal speech present Gait exam (Neuro): Normal gait present Motor exam (neuro): no tremor noted Extrem Right upper extremity: full ROM Left upper extremity: full ROM Right lower extremity: full ROM; no edema Left lower extremity: full ROM; no edema Psych Mental Status: mental status grossly normal Speech and movement: Normal speech and movement present Affect: normal affect Attitude: cooperative Thought process: Normal thought process present Assessment and Plan Assessment & Plan (1) Type 2 diabetes mellitus: Comment: No rx Code(s): E11.9 - Type 2 diabetes mellitus without complications Qualifiers: Diabetes mellitus prison insulin use: with director long term care use Diabetes mellitus complication status: without complication Qualified Code(s): E11.9 - Type 2 diabetes mellitus without complications; Z79.4 - snf (current) use of insulin Plan: Patient's most recent A1c is 6.8. Had tried Trulicity though had side effect. He would like to work on lifestyle modifications to control his diabetes. Goal A1c is to be below 6.5 (2) Tobacco dependence: Code(s): F17.200 - Nicotine dependence, unspecified, uncomplicated Plan: Patient does understand he needs to quit smoking. He reports the nicotine gum is helpful. He will try to stop smoking on his own. (3) Hyperlipidemia: Code(s): E78.5 - Hyperlipidemia, unspecified Qualifiers: Hyperlipidemia type: mixed hyperlipidemia Qualified Code(s): E78.2 - Mixed hyperlipidemia Plan: Patient has a history borderline high total cholesterol. Will consider statin therapy if LDL remains above 100 due to his cardiovascular risk being elevated due (diabetes, smoker). (4) Obese: Code(s): E66.9 - Obesity, unspecified Qualifiers: Obesity type: due to excess calories Obesity classification: adult class 1 (BMI 30 - 34.9) Serious obesity comorbidity presence: without serious comorbidity Body mass index: BMI 31.0-31.9 Qualified Code(s): E66.09 - Other obesity due to excess calories; Z68.31 - Body mass index [BMI] 31.0-31.9, adult Plan: Patient does understand his BMI is over 30 will work on trying to be more physically active and adapting to better eating habits to reduce his weight. He has tried GLP 1 though had side effect. (5) ERNESTO (obstructive sleep apnea): Code(s): G47.33 - Obstructive sleep apnea (adult) (pediatric) Plan: Did have sleep study done that did show mild obstructive sleep apnea the likely could be treated with conservative measures as weight loss and position therapy. There was some nocturnal hypoxemia though he does report his nasal cannula did fall off during the exam. (6) ERIN (generalized anxiety disorder): Code(s): F41.1 - Generalized anxiety disorder Plan: Patient's ERIN-7 score positive for anxiety which has been existing condition for him. He continues to speak with a mental health therapist and a psychiatrist who manages his mental health medications. Orders: Orders Lipid Panel Today E78.2 - Mixed hyperlipidemia Comprehensive [place]. Panel Fast Today E11.9 - Type 2 diabetes mellitus without complications, Z79.4 - terminal press operator (current) use of insulin Hemoglobin A1c Today E11.9 - Type 2 diabetes mellitus without complications, Z79.4 - terminal press operator (current) use of insulin Coding Level of Care Code Est Pt Level 4 (98173) Diagnoses Type 2 diabetes mellitus without complication, with long-term current use of insulin E11.9; Z79.4 Diabetes mellitus director long term care insulin use: with director long term care use Diabetes mellitus complication status: without complication Tobacco dependence F17.200 Mixed hyperlipidemia E78.2 Hyperlipidemia type: mixed hyperlipidemia Class 1 obesity due to excess calories without serious comorbidity with body mass index (BMI) of 31.0 to 31.9 in adult E66.09; Z68.31 Obesity type: due to excess calories Obesity classification: adult class 1 (BMI 30 - 34.9) Serious obesity comorbidity presence: without serious comorbidity Body mass index: BMI 31.0-31.9 ERNESTO (obstructive sleep apnea) G47.33 ERIN (generalized anxiety disorder) F41.1 Additional Codes ERIN-7 Assessment Billing - ERIN-7 Assessment Tool: ERIN-7 Assessment 95046 ([id number]) Vital Signs *Quality* - CPT code: 10323 - 4-10 Minutes ([id number])
[2023-06-27 13:02] VITALS: BP 130/80; PULSE 70; O2SAT 98; BMI 34.0
== END 2023-06-27 13:33 | disposition home or self-care (01) ==
PROVIDERS: PCP Physician Assistant; Visit Provider Physician Assistant
DX: E11.9 Type 2 diabetes mellitus without complications (principal); Z79.4 Long term (current) use of insulin; F17.210 Nicotine dependence, cigarettes, uncomplicated; E78.2 Mixed hyperlipidemia; E66.09 Other obesity due to excess calories; Z68.31 Body mass index [BMI] 31.0-31.9, adult; G47.33 Obstructive sleep apnea (adult) (pediatric); F41.1 Generalized anxiety disorder
CPT/HCPCS: 99214

== ENCOUNTER 2023-10-15 10:22 | Outpatient (REF) | payer OTHER, SELFPAY ==
[2023-10-15 10:49] LABS: Hematocrit 50.2 % (42.0-52.0); Hemoglobin 17.3 g/dl (14.0-18.0); Mean Corpuscular HGB Conc 34.5 g/dl (31.0-36.0); Mean Corpuscular Hemoglobin 29.2 pg (27.0-33.0); Mean Corpuscular Volume 84.8 fL (80.0-98.0); Mean Platelet Volume 10.7 fL (9.4-12.4); Platelet Count 185 X10*3/uL (160-400); Red Blood Count 5.92 X10*6/uL (4.60-5.80); White Blood Count 7.8 X10*3/uL (4.8-10.8)
[2023-10-15 11:13] LABS: Estimated Average Glucose 263 mg/dL; Hemoglobin A1c % 10.8 % (<6.0)
[2023-10-15 11:18] LABS: Creatinine Urine 186.36 mg/dL; Microalbum/Creatinine Ratio Ur 75.6 ug/mg cr (<30)
[2023-10-15 11:30] LABS: Alanine Aminotransferase 45 U/L (0-40); Albumin Level 4.7 g/dL (3.5-5.0); Alkaline Phosphatase 125 U/L (39-117); Anion Gap 14 (12-20); Aspartate Amino Transferase 35 U/L (5-37); Bilirubin Total 0.8 mg/dL (0.0-1.0); Blood Urea Nitrogen 12 mg/dL (9-16); Calcium 9.8 mg/dL (8.4-10.2); Carbon Dioxide 30 mmol/L (22-29); Chloride 98 mmol/L (96-108); Cholesterol 220 mg/dL (<200); Estimated Glomerular Filt Rate > 60; Glucose Fasting 296 mg/dL (60-99); HDL Cholesterol 32 mg/dL (>40); Potassium 4.2 mmol/L (3.3-5.1); Sodium 138 mmol/L (135-145); Total Protein 7.7 g/dL (6.5-8.0); Triglycerides 647 mg/dL (<150)
[2023-10-15 11:36] LABS: TSH reflex Free T4 2.34 uIU/mL (0.32-4.0)
== END 2023-10-15 10:23 | disposition home or self-care (01) ==
LOC: HO.LAB 10:22
PROVIDERS: PCP Physician Assistant; Visit Provider Physician Assistant
DX: E78.2 Mixed hyperlipidemia (principal); E11.9 Type 2 diabetes mellitus without complications; Z79.4 Long term (current) use of insulin; R68.89 Other general symptoms and signs
CPT/HCPCS: 36415; 80053; 80061; 82043; 82570; 83036; 84443; 85027

== ENCOUNTER 2023-10-19 10:01 | Outpatient (AMB) | payer OTHER, SELFPAY ==
--- NOTE | 2023-10-19 10:08 | MHC.PC.OV ---
Vital Signs 10/19/23 10:10 Height 6 ft 1 in Weight 236 lb 6 oz BMI 31.2 BP 124/82 Blood Pressure Location Lt brachial Position Sitting Pulse 97 Pulse Source Pulse Oximeter Pulse Oximetry (%) 97 Oxygen Delivery Method Room Air Intake Visit Reasons: Elevated Triglycerides level/NF Pt Intake Note: Patient is here to follow up on Elevated Triglycerides level from labs on 10/15/23 (N.F pt). Child And Family Services Worker Required: No Military Professional: Not Required per policy Accompanied by: Self / Same As Patient Allergies [facility]ag[facility] Adverse Reaction (Intermediate, Verified 10/19/23 10:44) shakiness gluten Adverse Reaction (Verified 10/19/23 10:44) Gastrointestinal Upset milk Adverse Reaction (Verified 10/19/23 10:44) Gastrointestinal Upset Medication List - Last Reconciled 10/19/23 by Hadley Anne MD acetaminophen ER 650 mg PO Q12H 30 days atorvastatin 20 mg PO BEDTIME clonazepam 1 mg PO TID PRN duloxetine 20 mg PO DAILY gabapentin 300 mg PO DAILY 30 days loperamide 2 mg PO Q6H PRN 30 days metformin 500 mg PO BID 90 days naproxen 500 mg PO BID PRN 30 days nicotine (polacrilex) 2 mg buccal Q2H PRN 15 days sildenafil (Viagra) 100 mg PO DAILY 7 days sumatriptan succinate 100 mg PO DIRECTED 30 days tizanidine 4 mg PO BEDTIME 90 days Tobacco use date assessed: 10/19/23 Dental Screening Dental Screen Date: 06/27/23 HPI Elevated Triglycerides level/NF Pt HPI Details 42-year-old male presents to the office for an urgent visit. I am covering for his provider Patient had blood work done recently which showed markedly elevated blood sugars and triglycerides. Patient reports that he knows he was a diabetic many years ago. He took metformin for a few months and stopped. He started having symptoms of increased thirst, increased urination and increased sweating in the past few months. Continues to work and do all activities of daily living. [facility] Medical History (Updated 06/30/23 @ 13:03 by Hammad Lopez PA-C) Anxiety Depression Microscopic hematuria Low libido Tibial plateau fracture, right H/O fracture of tibia Obesity Thoracic disc disease Depression Hidradenitis suppurativa Vitiligo Bronchitis Tibia/fibula fracture Migraines Cervical disc disease with myelopathy Smoker Type 2 diabetes mellitus Opiate dependence Surgical History (Updated 10/19/23 @ 10:17 by SARA Burks) History of right knee surgery History of removal of cyst History of ankle surgery Family History Father CVD (cardiovascular disease) Brother Heart attack, Onset Age: 50 Social History Housing: House Are you a primary manager managed care to a significant other at home: No Do you presently have visiting nurse or other home services: No Alcohol intake: never Patient Tobacco Use Status: Current everyday Tobacco user Tobacco use type: Cigarette Cigarette Packs Per Day: 0.5 Cigarettes Per Day: 10 Years Smoked: 25 Packs Per Year: 13 Packs per year/per ci.50 e-Cigarette/Vaping Use: Never Used Second Hand Smoke Exposure: No service: No Current occupational status: employed 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 Agustin Cerda, Micki Harris, Adam Adan and colleagues, with an educational basilio from [employer]. Physical exam (Primary Care) Vital Signs: Last Vital Signs Pulse 97 10/19/23 10:10 BP 124/82 10/19/23 10:10 Pulse Ox 97 10/19/23 10:10 Oxygen Delivery Method Room Air 10/19/23 10:10 BMI result Body Mass Index 31.2 Tobacco/Smoking Status: Tobacco use Status Tobacco use date assessed 10/19/23 10/19/23 10:11 Patient Tobacco Use Status Current everyday Tobacco 10/19/23 10:11 Tobacco use type Cigarette 10/19/23 10:11 e-Cigarette/Vaping Use Never Used 10/19/23 10:11 Thrive Assessment: Date of Thrive Assessment Date Thrive assessed 06/27/23 10/19/23 10:11 Const General: cooperative and healthy appearing Nutritional Appearance: well nourished Orientation/consciousness: patient oriented x3 Limitations: no limitations HENMT Head: Yes normal to inspection Eyes General: appearance normal, both eyes and all related structures Neck Neck: Yes normal visual inspection Chest Chest palpation & inspection: normal palpation of entire chest wall Resp Effort & Inspection: normal respiratory effort Neuro General: patient oriented x3 Assessment and Plan Assessment & Plan (1) Type 2 diabetes mellitus: Comment: No rx Code(s): E11.9 - Type 2 diabetes mellitus without complications Qualifiers: Diabetes mellitus fpc insulin use: with oil heaterman use Diabetes mellitus complication status: without complication Qualified Code(s): E11.9 - Type 2 diabetes mellitus without complications; Z79.4 - care home (current) use of insulin Plan: Recent A1c was 10.8. Metformin has been restarted. Patient was advised to take it twice a day. Glucometer, lancets and strips will be called in. Patient advised to keep the appointment with his regular doctor next week. Additional medications need to be added. (2) Hyperlipidemia: Code(s): E78.5 - Hyperlipidemia, unspecified Qualifiers: Hyperlipidemia type: mixed hyperlipidemia Qualified Code(s): E78.2 - Mixed hyperlipidemia Plan: Elevated triglycerides. Statins have been added to the regimen. Atorvastatin 20 mg once a day has been prescribed. Medications: New atorvastatin 20 mg PO BEDTIME 90 tabs 1RF metformin 500 mg PO BID 180 tabs 1RF 90 days Refilled acetaminophen ER 650 mg PO Q12H 60 tabs 3RF 30 days M54.14 - Radiculopathy, thoracic region Coding Level of Care Code Est Pt Level 4 (64109) Complex EM visit Add On G2211 Diagnoses Type 2 diabetes mellitus without complication, with long-term current use of insulin E11.9; Z79.4 Diabetes mellitus fpc insulin use: with oil heaterman use Diabetes mellitus complication status: without complication Mixed hyperlipidemia E78.2 Hyperlipidemia type: mixed hyperlipidemia
[2023-10-19 10:10] VITALS: BP 124/82; PULSE 97; O2SAT 97; BMI 31.2
== END 2023-10-19 13:37 | disposition home or self-care (01) ==
PROVIDERS: PCP Physician Assistant; Visit Provider Internal Medicine
DX: E11.9 Type 2 diabetes mellitus without complications (principal); Z79.4 Long term (current) use of insulin; E78.2 Mixed hyperlipidemia
CPT/HCPCS: 99214; G2211

== ENCOUNTER 2023-11-07 14:27 | Outpatient (AMB) | payer OTHER, SELFPAY ==
--- NOTE | 2023-11-07 14:34 | A.OFFPC_ITS ---
Vital Signs 11/07/23 14:37 Height 6 ft 1 in Weight 232 lb 2 oz BMI 30.6 BP 126/78 Blood Pressure Location Lt brachial Position Sitting Pulse 88 Pulse Source Pulse Oximeter Pulse Oximetry (%) 95 Oxygen Delivery Method Room Air Intake Visit Reasons: PE Intake Note: Patient is here today for a physical. 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: No Accompanied by: Self / Same As Patient Allergies dulaglutide [From [facility]] Adverse Reaction (Intermediate, Verified 11/07/23 14:50) shakiness gluten Adverse Reaction (Verified 11/07/23 14:50) Gastrointestinal Upset milk Adverse Reaction (Verified 11/07/23 14:50) Gastrointestinal Upset Medication List - Last Reconciled 11/07/23 by Hammad Lopez PA-C acetaminophen ER 650 mg PO Q12H 30 days atorvastatin 20 mg PO BEDTIME clonazepam 1 mg PO TID PRN duloxetine 20 mg PO DAILY [freestyle lite glucometer As directed to test two times per day] [freestyle lite lancets As directed two times per day] [freestyle lite test strips As directed 2 times per day ] gabapentin 300 mg PO DAILY 30 days loperamide 2 mg PO Q6H PRN 30 days metformin 500 mg PO BID 90 days naproxen 500 mg PO BID PRN 30 days nicotine (polacrilex) 2 mg buccal Q2H PRN 15 days sildenafil (Viagra) 100 mg PO DAILY 7 days sumatriptan succinate 100 mg PO DIRECTED 30 days tizanidine 4 mg PO BEDTIME 90 days Tobacco use date assessed: 10/19/23 Dental Screening Dental Screen Date: 06/27/23 HPI PE HPI Details Patient is a 42 here today for a routine annual physical.? Patient has a past medical history significant for h/o opiate dependence (in remission now off Suboxone), type 2 diabetes cervical disc disease with myopathy, tobacco use disorder .. Tobacco use disorder:? Patient does understand he needs to quit smoking and would like to wean smoking on his own.? He declines my offers to give nicotine replacement therapy. . Type 2 diabetes:? Recently had symptoms of fatigue, polydipsia, polyuria. Was off of metformin. Most recent fasting blood sugar above 200 and A1c above 10. Patient will has restarted metformin 500 b.i.d. and hyperglycemia symptoms have generally resolved. .. HLD: Most recent lipid panel showing elevated total cholesterol and triglycerides. Has been started on atorvastatin though reports intolerable muscle cramps in his legs. For now will hold off on statin therapy and continue to implement a low- cholesterol diet. Will recheck lipid panel in the next 3-4 months and if LDL above 100 will consider starting low-dose statin therapy. .. History of tib-fib fracture:? Does have a history of a tib-fib fracture secondary to trauma with hardware repair placement at [facility] ? Dr. rodarte. He reports he continues to have right knee pain and pain in his anterior pearce. He has followed up with [facility] and had removal of hardware. .. Vaccine: Up-to-date with COVID, tetanus, flu. Needs pneumonia vaccine today [facility] Medical History Anxiety Depression Microscopic hematuria Low libido Tibial plateau fracture, right H/O fracture of tibia Obesity Thoracic disc disease Depression Hidradenitis suppurativa Vitiligo Bronchitis Tibia/fibula fracture Migraines Cervical disc disease with myelopathy Smoker Type 2 diabetes mellitus Opiate dependence Surgical History History of right knee surgery History of removal of cyst History of ankle surgery Family History (Updated 11/07/23 @ 14:54 by Hammad Lopez PA-C) Father CVD (cardiovascular disease) Brother Heart attack, Onset Age: 50 Sister Breast CA Social History Housing: House Are you a primary resident care coordinator to a significant other at home: No Do you presently have visiting nurse or other home services: No Alcohol intake: never Patient Tobacco Use Status: Current everyday Tobacco user Tobacco use type: Cigarette Cigarette Packs Per Day: 0.5 Cigarettes Per Day: 10 Years Smoked: 25 e-Cigarette/Vaping Use: Never Used Second Hand Smoke Exposure: No service: No Current occupational status: employed 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 Steven, Adam Adan and colleagues, with an educational basilio from [employer]. Review of Systems Const Denies body aches, Denies chills, Denies excessive sweating, Denies fatigue, Denies fever(s) and Denies headache(s) Eyes Denies blurry vision ENT Denies dysphagia, Denies vertigo, Denies dizziness, Denies headache(s), Denies hearing loss and Denies tinnitus Card Denies chest pain, Denies chest pain with activity, Denies syncope, Denies irregular heart rhythm and Denies dyspnea Resp Denies chest congestion, Denies cough, Denies hemoptysis, Denies dyspnea and Denies wheezing GI Denies abdominal pain, Denies melena, Denies hematochezia, Denies coffee ground emesis, Denies dysphagia, Denies diarrhea, Denies nausea and Denies vomiting Denies difficulty urinating, Denies dysuria, Denies urinary frequency, Denies urinary hesitancy and Denies urinary urgency Musc Denies arthralgias, Denies limited range of motion, Denies muscle cramps and Denies muscle weakness Skin/Breast Denies rash and Denies skin ulcer Neuro Denies Abnormal speech present, Denies confusion, Denies vertigo, Denies dizziness, Denies syncope, Denies headache(s), Denies memory loss and Denies seizure-like activity Psych Denies anxiety, Denies confusion, Denies depression, Denies memory loss, Denies panic attacks and Denies paranoia Endo Denies excessive sweating, Denies fatigue, Denies flushing, Denies polydipsia and Denies polyuria Aller/Immun Denies wheezing Physical exam (Primary Care) Vital Signs: Last Vital Signs Pulse 88 11/07/23 14:37 BP 126/78 11/07/23 14:37 Pulse Ox 95 11/07/23 14:37 Oxygen Delivery Method Room Air 11/07/23 14:37 BMI result Body Mass Index 30.6 Tobacco/Smoking Status: Tobacco use Status Tobacco use date assessed 10/19/23 11/07/23 14:35 Patient Tobacco Use Status Current everyday Tobacco 11/07/23 14:35 Tobacco use type Cigarette 11/07/23 14:35 e-Cigarette/Vaping Use Never Used 11/07/23 14:35 Tobacco cessation counseling provided: Yes Items discussed: Nicotine replacement Relapse Prevention: discussed the importance of a supportive environment, discussed negative mood or depression after quitting, weight gain after smoking is common and discussed dietary, exercise and/or lifestyle changes Number of minutes spent counselin CPT code: 36131 - 4-10 Minutes Thrive Assessment: Date of Thrive Assessment Date Thrive assessed 06/27/23 11/07/23 14:35 Const General: cooperative, comfortable, no acute distress, alert and awake; No confusion Orientation/consciousness: oriented to person, oriented to place, patient oriented x3 and No confusion HENMT Head: Yes normocephalic Ears: external ears normal and TM's normal bilaterally Face and sinus: No sinus tenderness Mouth: Normal oral and palatal mucosa present and tongue normal Teeth and gingiva: dentition normal and gingiva normal Throat: Yes posterior oropharynx normal, Yes tonsils normal and Yes uvula midline Eyes Conjunctivae: conjunctivae normal Sclerae: sclerae normal Pupils: Equal, round and reactive pupils present EOM: EOMs intact bilaterally Direct Ophthalmoscopy: No no photophobia Neck Neck: Yes no lymphadenopathy, No tender and Yes no JVD Thyroid: Thyroid normal Carotids: no bruits Chest Chest palpation & inspection: no tenderness Resp Effort & Inspection: normal respiratory effort, no audible wheezes, not labored and no stridor Auscultation: no crackles, no rales, no rhonchi and no wheezes Cardio Jugular venous distension: no JVD Rate: regular rate, not bradycardic and not tachycardic Rhythm: regular rhythm Bruits: no carotid bruits Peripheral pulses: Peripheral pulses 2+ throughout GI Inspection: Yes normal to inspection, No abdominal wall ecchymosis and No visible herniation Palpation (GI): Soft to palpation, nontender, no guarding, not rigid and No hepatosplenomegaly present Auscultation: normoactive bowel sounds General: Yes no CVA tenderness Back/Spine/Pelvis Back: no CVA tenderness and No back tenderness Cervical Spine: cervical ROM normal Thoracic/Lumbar Spine: thoracic and lumbar spine normal to inspection, straight leg raise negative bilaterally, No thoraco-lumbar ROM limited and No lumbar spinal tenderness Skin Lesions: no lesions Rashes: no rashes Wounds: no wounds Neuro General: oriented to person, oriented to place, patient oriented x3, CN's II-XI intact bilaterally and No confusion Cranial nerves: Yes Equal, round and reactive pupils present and Yes Normal accommodation reflex present Cognition (Neuro): normal cognition Speech: No Abnormal speech present Gait exam (Neuro): Normal gait present Motor exam (neuro): 5/5 motor strength present throughout Extrem Right upper extremity: full ROM; no cyanosis Left upper extremity: full ROM; no cyanosis Right lower extremity: no edema Left lower extremity: no edema Psych Appearance: grossly normal Mental Status: mental status grossly normal Affect: normal affect Attitude: cooperative Thought process: Normal thought process present Immunizations pneumoc 20-mj conj-dip cr(PF) 0.5 mL IM syringe Performing Provider: Hammad Lopez PA-C Performing Location: [facility] Administered by: GARCIA Domínguez on 11/07/23 15:24 Dose Route Admin Location Dispensed Lot Number Expiration Date [employer] 0.5 mL IM Left Deltoid 0.5 mL [id number] 11/09/24 7564-4612-06 [employer] VIS Given Date VIS Provided VIS Publication Date 11/07/23 Single Vaccine 21 Eligibility Eligibility Date Funding Source Not VFC Eligible 11/07/23 Private Assessment and Plan Assessment & Plan (1) Annual physical exam: Code(s): Z00.00 - Encounter for general adult medical examination without abnormal findings (2) Type 2 diabetes mellitus: Code(s): E11.9 - Type 2 diabetes mellitus without complications Qualifiers: Diabetes mellitus complication status: with kidney complications Diabetes mellitus joint terminal attack controller insulin use: with joint terminal attack controller use Diabetes mellitus complication detail: with diabetic microalbuminuria Qualified Code(s): E11.29 - Type 2 diabetes mellitus with other diabetic kidney complication; R80.9 - Proteinuria, unspecified; Z79.4 - intermodal customer service (current) use of insulin Plan: Patient's most recent A1c was above 10. He was off of metformin and started to have hyperglycemic symptoms. He has been started back on metformin 500 b.i.d. and hyperglycemia symptoms have resolved. He will continue lifestyle and dietary modifications to control his type 2 diabetes. Of note was found to have microalbuminuria in the setting of uncontrolled type 2 diabetes thus will continue to follow. Goal A1c is to be below 6.5 (3) Tobacco dependence: Code(s): F17.200 - Nicotine dependence, unspecified, uncomplicated Plan: Patient does understand he needs to quit smoking. He reports the nicotine gum is helpful. He will try to stop smoking on his own. (4) Hyperlipidemia: Code(s): E78.5 - Hyperlipidemia, unspecified Qualifiers: Hyperlipidemia type: mixed hyperlipidemia Qualified Code(s): E78.2 - Mixed hyperlipidemia Plan: Most recent total cholesterol and triglycerides were elevated in the setting of acute uncontrolled hyperglycemia. Has been started on atorvastatin though has intolerable side effects of muscle aches in his legs. Will recheck lipid panel in 3 months and if LDL above 100 will consider simvastatin (5) Obese: Code(s): E66.9 - Obesity, unspecified Qualifiers: Body mass index: BMI 31.0-31.9 Obesity classification: adult class 1 (BMI 30 - 34.9) Obesity type: due to excess calories Serious obesity comorbidity presence: without serious comorbidity Qualified Code(s): E66.09 - Other obesity due to excess calories; Z68.31 - Body mass index [BMI] 31.0-31.9, adult Plan: Patient does understand his BMI is over 30 will work on trying to be more physically active and adapting to better eating habits to reduce his weight. He has tried GLP 1 though had side effect. (6) ERNESTO (obstructive sleep apnea): Code(s): G47.33 - Obstructive sleep apnea (adult) (pediatric) Plan: Did have sleep study done that did show mild obstructive sleep apnea the likely could be treated with conservative measures as weight loss and position therapy. There was some nocturnal hypoxemia though he does report his nasal cannula did fall off during the exam. Orders: Orders Comprehensive [place]. Panel Fast 11/07/23 E11.9 - Type 2 diabetes mellitus without complications, Z79.4 - intermodal customer service (current) use of insulin Complete Blood Count no Diff 11/07/23 E11.9 - Type 2 diabetes mellitus without complications, Z79.4 - intermodal customer service (current) use of insulin Lipid Panel 11/07/23 E78.2 - Mixed hyperlipidemia Microalbumin, Random (w Creat) 11/07/23 E11.9 - Type 2 diabetes mellitus without complications, Z79.4 - intermodal customer service (current) use of insulin Pneumococcal 20 Immunization 11/07/23 E11.9 - Type 2 diabetes mellitus without complications, Z23 - Encounter for immunization, Z79.4 - intermodal customer service (current) use of insulin Referrals Nutrition/Dietitian Referral E11.9 - Type 2 diabetes mellitus without complications, Z79.4 - intermodal customer service (current) use of insulin Medications: Refilled sildenafil (Viagra) 100 mg PO DAILY 7 tabs 0RF 7 days N52.2 - Drug-induced erectile dysfunction On Hold atorvastatin Hold Comment: Doctor's Order 20 mg PO BEDTIME 90 tabs 1RF Patient Instructions: Goal: A1c to be below 7 Barriers: Adherence to physical activity and healthy eating habits Coding Level of Care Code Est Pt Prev Care 40-64y(20156) Diagnoses Annual physical exam Z00.00 Type 2 diabetes mellitus with diabetic microalbuminuria, with long-term current use of insulin E11.29; R80.9; Z79.4 Diabetes mellitus complication status: with kidney complications Diabetes mellitus penitentiary insulin use: with penitentiary use Diabetes mellitus complication detail: with diabetic microalbuminuria Tobacco dependence F17.200 Mixed hyperlipidemia E78.2 Hyperlipidemia type: mixed hyperlipidemia Class 1 obesity due to excess calories without serious comorbidity with body mass index (BMI) of 31.0 to 31.9 in adult E66.09; Z68.31 Body mass index: BMI 31.0-31.9 Obesity classification: adult class 1 (BMI 30 - 34.9) Obesity type: due to excess calories Serious obesity comorbidity presence: without serious comorbidity ERNESTO (obstructive sleep apnea) G47.33 Additional Codes Vital Signs *Quality* - CPT code: 75071 - 4-10 Minutes ([id number])
[2023-11-07 14:37] VITALS: BP 126/78; PULSE 88; O2SAT 95; BMI 30.6
== END 2023-11-07 15:28 | disposition home or self-care (01) ==
PROVIDERS: PCP Physician Assistant; Visit Provider Physician Assistant
DX: Z23 Encounter for immunization (principal); E11.9 Type 2 diabetes mellitus without complications; Z79.4 Long term (current) use of insulin
CPT/HCPCS: 90471; 90677; 99396; 99406

== ENCOUNTER → 2023-11-24 15:05 | Outpatient (BNVA) | payer SELFPAY | PROVIDERS: PCP Physician Assistant; Visit Provider Physician Assistant | DX: Z02.79 Encounter for issue of other medical certificate (principal) | CPT/HCPCS: 82947 ==

== ENCOUNTER 2023-12-06 09:18 | Outpatient (AMB) | payer OTHER, SELFPAY ==
[2023-12-06 09:39] VITALS: BMI 29.1
--- NOTE | 2023-12-06 09:39 | A.OFFVIS_ITS ---
VS Expanded 12/06/23 09:39 12/06/23 10:09 Height 6 ft 1 in 6 ft 1 in Weight 220 lb 3.869 oz 220 lb BMI 29.1 29.0 Intake Visit Reasons: [id number] TO LVM Allergies dulaglutide [From [facility]] Adverse Reaction (Intermediate, Verified 11/07/23 14:50) shakiness gluten Adverse Reaction (Verified 11/07/23 14:50) Gastrointestinal Upset milk Adverse Reaction (Verified 11/07/23 14:50) Gastrointestinal Upset Nutrition Presentation Details: Pt presents for MNT for T2DM. Pt was referred by PCP B: surya bowling with coffee flavored L: ---- D rice/chicken and water snack: pb jelly sand fruits: 0-1 fish: 0-2x/m yogurt/milk 1-2 x/almond unsweetened etoh: no smokes: +++ physical activity : active at work BS Monitoring Most Recent Diabetes Results: Microalb/Creat Ratio 75.6 ug/mg cr (<30) H 10/15/23 Cholesterol 220 mg/dL (<200) H 10/15/23 HDL Cholesterol 32 mg/dL (>40) L 10/15/23 Triglycerides 647 mg/dL (<150) H 10/15/23 Creatinine 1.15 mg/dL (0.5-1.4) 10/15/23 Blood Urea Nitrogen 12 mg/dL (9-16) 10/15/23 Sodium 138 mmol/L (135-145) 10/15/23 Potassium 4.2 mmol/L (3.3-5.1) 10/15/23 Chloride 98 mmol/L (96-108) 10/15/23 Carbon Dioxide 30 mmol/L (22-29) H 10/15/23 Calcium 9.8 mg/dL (8.4-10.2) 10/15/23 AST 35 U/L (5-37) 10/15/23 ALT 45 U/L (0-40) H 10/15/23 Total Protein 7.7 g/dL (6.5-8.0) 10/15/23 Albumin 4.7 g/dL (3.5-5.0) 10/15/23 OXN-Ucbjztr-Ky.Jeor Equation Height: 6 ft 1 in Weight: 220 lb Resting Metabolic Rate: 1954.14 Calculated Activity Level: Mild Activity Calories Needed to Maintain Weight: 2686.94 Diagnosis Nutrition problem #1: food nutri know defi As related to (etiology) #1: inadeq diet over 5 days As evidenced by (sign/symptom) #1: est intake more than need PFSH Medical History Anxiety Depression Microscopic hematuria Low libido Tibial plateau fracture, right H/O fracture of tibia Obesity Thoracic disc disease Depression Hidradenitis suppurativa Vitiligo Bronchitis Tibia/fibula fracture Migraines Cervical disc disease with myelopathy Smoker Type 2 diabetes mellitus Opiate dependence Surgical History History of right knee surgery History of removal of cyst History of ankle surgery Family History (Updated 11/07/23 @ 14:54 by Hammad Lopez PA-C) Father CVD (cardiovascular disease) Brother Heart attack, Onset Age: 50 Sister Breast CA Social History Housing: House Are you a primary customer care assistant to a significant other at home: No Do you presently have visiting nurse or other home services: No Alcohol intake: never Patient Tobacco Use Status: Current everyday Tobacco user Tobacco use type: Cigarette Cigarette Packs Per Day: 0.5 Cigarettes Per Day: 10 Years Smoked: 25 e-Cigarette/Vaping Use: Never Used Second Hand Smoke Exposure: No service: No Current occupational status: employed 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 Cognitive needs: No Hearing needs: No Vision needs: No Assessment & Plan Assessment & Plan (1) Type 2 diabetes mellitus: Code(s): E11.9 - Type 2 diabetes mellitus without complications Category: Medical Qualifiers: Diabetes mellitus long term care phlebotomist insulin use: with long term care phlebotomist use Diabetes mellitus complication status: with kidney complications Diabetes mellitus complication detail: with diabetic microalbuminuria Qualified Code(s): E11.29 - Type 2 diabetes mellitus with other diabetic kidney complication; R80.9 - Proteinuria, unspecified; Z79.4 - custodial (current) use of insulin Plan: Wt: 100 Kg ( 12/2023 ) Est kcal needs as per MSJ: 2700 (40% carb, 30% protein/fat) Est fluid needs as per 25-30 ml/d: 3000 Est prot per day as per 1 g/kg bw: 100 Recommend fiber intake : 8-10 g per day and gradually increase to 25-28 g per day for women and 35-38 g for men or as tolerated Recommend sodium intake per day : less than 2000 mg Educated patient on: ( R = reviewed V = verbalizes understanding N/R = needs review N/A = not applicable * Food sources of carbohydrate, adequate serving sizes and its role in various health conditions: R * Differences between complex carbohydrates a simple carbohydrates, role of fiber in diet: R V N/R * Lean protein sources of foods: R V NR * Differences between types of fats and role in diet (mono on saturated fat fatty acids, saturated fatty acids, trans fats): R V N/R * Food sources of sodium in salt and healthy modifications for heart health in kidney health: R V R/V * Vitamins and minerals: R V N/R * Healthy plate method concept: R * Physical activity: Benefits a precaution: R V N/R * Hypoglycemia protocol (rule of 15): R V N/R * Dietary prevention of Hyperglycemia: R Medications: Discontinued glipizide Discontinued Reason: Doctor's Order 2.5 mg PO DAILY 30 days 30 tabs 0RF E11.29 - Type 2 diabetes mellitus with other diabetic kidney complication, R80.9 - Proteinuria, unspecified, Z79.4 - termite control representative (current) use of insulin glipizide Discontinued Reason: Doctor's Order 2.5 mg (1/2 x 5 mg) PO DAILY 30 days 15 tabs 1RF E11.29 - Type 2 diabetes mellitus with other diabetic kidney complication, R80.9 - Proteinuria, unspecified, Z79.4 - custodial (current) use of insulin Patient Instructions: Work on following healthy plate method at dinner Have a cup of milk vs juices with meals Practice mindful eating Coding Level of Care Code Nutr Indiv Intake (92034) Diagnoses Type 2 diabetes mellitus with diabetic microalbuminuria, with long-term current use of insulin E11.29; R80.9; Z79.4 Diabetes mellitus long term care phlebotomist insulin use: with halfway use Diabetes mellitus complication status: with kidney complications Diabetes mellitus complication detail: with diabetic microalbuminuria Time Spent (min) 30
[2023-12-13 12:30] VITALS: BMI 29.0
== END 2023-12-06 10:16 | disposition home or self-care (01) ==
PROVIDERS: PCP Physician Assistant; Visit Provider Dietitian, Registered
DX: E11.29 Type 2 diabetes mellitus with other diabetic kidney complication (principal); R80.9 Proteinuria, unspecified; Z79.4 Long term (current) use of insulin

== ENCOUNTER → 2023-12-06 09:18 | Outpatient (BNVA) | payer OTHER, SELFPAY | PROVIDERS: PCP Physician Assistant; Visit Provider Dietitian, Registered | DX: E11.29 Type 2 diabetes mellitus with other diabetic kidney complication (principal); R80.9 Proteinuria, unspecified; Z79.4 Long term (current) use of insulin; Z71.3 Dietary counseling and surveillance | CPT/HCPCS: 97802 ==

== ENCOUNTER 2023-12-23 13:07 | Outpatient (AMB) | payer OTHER, SELFPAY ==
[2023-12-23 13:11] VITALS: BP 106/80; PULSE 79; BMI 30.1
--- NOTE | 2023-12-23 13:11 | A.OFFVIS_ITS ---
Vital Signs 12/23/23 13:11 Height 6 ft 1 in Weight 228 lb 2.855 oz BMI 30.1 BP 106/80 Blood Pressure Location Lt brachial Position Sitting Pulse 79 Pulse Source Pulse Oximeter Intake Visit Reasons: Type 2 DM Intake Note: Patient presents today for [facility] follow up visit. Last Diabetic Eye exam: Over 2 years ago Last Podiatry Visit: Doesn't have one Random Glucose: 118 mg/dl HgA1c: 10.8% 10/15/23 Personal Service Representative Required: No Accompanied by: Self / Same As Patient Allergies dulaglutide [From [facility]] Adverse Reaction (Intermediate, Verified 12/23/23 13:19) shakiness gluten Adverse Reaction (Verified 12/23/23 13:19) Gastrointestinal Upset milk Adverse Reaction (Verified 12/23/23 13:19) Gastrointestinal Upset Medication List - Last Reconciled 12/23/23 by Francie Botello PA-C acetaminophen ER 650 mg PO Q12H 30 days atorvastatin 20 mg PO BEDTIME clonazepam 1 mg PO TID PRN clotrimazole 1% 1 appl topical BID docusate sodium (Colace) 100 mg PO BID 14 days duloxetine 20 mg PO DAILY [freestyle lite glucometer As directed to test two times per day] [freestyle lite lancets As directed two times per day] [freestyle lite test strips As directed 2 times per day ] gabapentin 300 mg PO DAILY 30 days glyburide 2.5 mg PO DAILY 30 days linagliptin 5 mg PO DAILY 90 days loperamide 2 mg PO Q6H PRN 30 days naproxen 500 mg PO BID PRN 30 days nicotine (polacrilex) 2 mg buccal Q2H PRN 15 days sildenafil (Viagra) 100 mg PO DAILY 7 days sumatriptan succinate 100 mg PO DIRECTED 30 days tizanidine 4 mg PO BEDTIME 90 days tramadol 25 mg PO BID PRN 2 days HPI HPI Type 2 DM: Details: Patient is a 43-year-old male with a significant past medical history of type 2 diabetes, anxiety, depression, hyperlipidemia, ERNESTO on CPAP, presenting today for a f consultation for diabetes. Endo: His diabetes was diagnosed 2 months ago. His A1c was 6.8 and recently increased to 10.8. He is currently on Tradjenta 5 mg and glyburide 2.5 mg daily. He denies any hypoglycemic events. He does monitor his blood sugars on a glucometer. His recent blood sugars have been between 2 and 300. His blood sugar today in the office is 118. He states that that is because he has not eaten anything all today besides handful of all meds. -metformin he discontinued because he thought it was maybe causing his leg cramps. He also stopped atorvastatin around the same time for myalgias but did not have any improvement of either of these until he started taking magnesium and drinking a little bit of vitamin water. He states that his symptoms resolved once he changed his hydration. -Trulicity in the past caused him to feel shaky. No fam hx of diabetes. He met with a automation qtp tester and states that this was helpful. CV: Blood pressure is 106/80. His last labs did show elevated cholesterol. [facility] Medical History Anxiety Depression Microscopic hematuria Low libido Tibial plateau fracture, right H/O fracture of tibia Obesity Thoracic disc disease Depression Hidradenitis suppurativa Vitiligo Bronchitis Tibia/fibula fracture Migraines Cervical disc disease with myelopathy Smoker Type 2 diabetes mellitus Opiate dependence Surgical History History of right knee surgery History of removal of cyst History of ankle surgery Family History (Updated 11/07/23 @ 14:54 by Hammad Lopez PA-C) Father CVD (cardiovascular disease) Brother Heart attack, Onset Age: 50 Sister Breast CA Social History Housing: House Are you a primary patient care to a significant other at home: No Do you presently have visiting nurse or other home services: No Alcohol intake: never Patient Tobacco Use Status: Current everyday Tobacco user Tobacco use type: Cigarette Cigarette Packs Per Day: 0.5 Cigarettes Per Day: 10 Years Smoked: 25 e-Cigarette/Vaping Use: Never Used Second Hand Smoke Exposure: No service: No Current occupational status: employed 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 Cognitive needs: No Hearing needs: No Vision needs: No Physical Exam Vital Signs: Last Vital Signs Pulse 79 12/23/23 13:11 BP 106/80 12/23/23 13:11 BMI result Body Mass Index 30.1 Const Orientation/consciousness: patient oriented x3 Neck Neck: Yes no lymphadenopathy Thyroid: Thyroid normal Carotids: no bruits Resp Auscultation: clear to auscultation bilaterally Cardio Rate: regular rate Rhythm: regular rhythm Heart sounds: S1 normal heart sound present and S2 normal heart sound present Peripheral pulses: dorsalis pedis present Neuro General: patient oriented x3, gait normal and no focal motor deficits Extrem Other: Monofilament sensation intact bilaterally. Vibratory sensation intact bilaterally. Skin intact. General: Yes normal to inspection Office Procedures Glucose Monitoring Details Details: Applied Dexcom G7 for patient and downloaded at. Reviewed how to use this. 26436 - Glucose Monitoring, continuous Procedure code (CPT) selection complete Results Reviewed Results Reviewed: Laboratory Tests 04/20/23 10/15/23 09:12 10:30 Sodium 138 Potassium 4.2 Chloride 98 Carbon Dioxide 30 H Anion Gap 14 BUN 12 Creatinine 1.15 Estimated GFR > 60 Fasting Glucose 296 H Estimat Average Glucose 263 Hgb A1c (Clinic) 6.8 H Hemoglobin A1c % 10.8 H AST 35 ALT 45 H Triglycerides 647 H Cholesterol 220 H HDL Cholesterol 32 L TSH 2.34 Urine Creatinine 186.36 Urine Microalbumin 141.0 Microalb/Creat Ratio 75.6 H Assessment & Plan Assessment & Plan (1) Uncontrolled type 2 diabetes mellitus with hyperglycemia: Code(s): E11.65 - Type 2 diabetes mellitus with hyperglycemia Category: Medical Plan: I spent about 80 minutes with the patient today in the office discussing the pathophysiology of diabetes. We reviewed the difference between type 1 and type 2 diabetes. Labs ordered today to rule out type 1 given no family history. We also discussed the complications associated with diabetes including kidney disease, blindness, heart disease, stroke, neuropathy, increased risk of amputations infections etc.. We reviewed signs and symptoms of hyper and hypoglycemia that would require emergent medical treatment. The rule of 15 were discussed. I will continue his current oral regimen and start Lantus. We reviewed how to use insulin pens. Glucose tabs ordered as needed for hypoglycemia. I have ordered him a CGM and we will start on Dexcom G7. There is a national shortage of freestyle Xavier. I did download the ramiro for him today in the office and showed him how to use the CGM. I helped him apply it today. 1-2 weeks follow up. Sooner if needed. (2) Insulin dependent type 2 diabetes mellitus: Code(s): E11.9 - Type 2 diabetes mellitus without complications; Z79.4 - terminal system operator (current) use of insulin Category: Medical Plan: As above. (3) Hyperlipidemia: Code(s): E78.5 - Hyperlipidemia, unspecified Category: Medical Qualifiers: Hyperlipidemia type: mixed hyperlipidemia Qualified Code(s): E78.2 - Mixed hyperlipidemia Plan: Restart atorvastatin. Short term follow up. Patient understands and agrees with this plan. Orders: Orders C Peptide Today Francie Botello PA-C E11.65 - Type 2 diabetes mellitus with hyperglycemia, E11.9 - Type 2 diabetes mellitus without complications, Z79.4 - senior care (current) use of insulin Glutamic acid decarboxylase Ab Today Francie Botello PA-C E11.65 - Type 2 diabetes mellitus with hyperglycemia, E11.9 - Type 2 diabetes mellitus without complications, Z79.4 - terminal system operator (current) use of insulin AMB Glucose Monitoring Today Francie Botello PA-C E11.65 - Type 2 diabetes mellitus with hyperglycemia, Z79.4 - terminal system operator (current) use of insulin Basic Metabolic Panel Today Francie Botello PA-C E11.65 - Type 2 diabetes mellitus with hyperglycemia, E11.9 - Type 2 diabetes mellitus without complications, Z79.4 - senior care (current) use of insulin Islet Cell Antibody Scrn/Titer Today Francie Botello PA-C E11.65 - Type 2 diabetes mellitus with hyperglycemia, E11.9 - Type 2 diabetes mellitus without complications, Z79.4 - terminal system operator (current) use of insulin Medications: New insulin glargine (Lantus Solostar U-100 Insulin) 10 units (0.1 mL) subcut QPM 30 days 3 mL 1RF Francie Botello PA-C blood-glucose sensor (Dexcom G7 Sensor device) use daily As directed for monitor blood glucose 3 ea 11RF Francie Botello PA-C E11.65 - Type 2 diabetes mellitus with hyperglycemia, E11.9 - Type 2 diabetes mellitus without complications, Z79.4 - senior care (current) use of insulin pen needle, diabetic (BD Ultra-Fine Mini Pen Needle) use daily As directed to monitor blood glucose 100 ea 2RF Francie Botello PA-C glucose (Dex4 Glucose) until symptoms of low blood sugar are controlled 16 grams (4 x 4 gram) PO Q15M PRN 100 tabs 0RF hypoglycemia Francie Botello PA-C Resumed 2 atorvastatin 20 mg PO BEDTIME 90 tabs 1RF Hadley Anne MD Coding Level of Care Code New Pt Level 5 (92228) Complex EM visit Add On G2211 Diagnoses Uncontrolled type 2 diabetes mellitus with hyperglycemia E11.65 Insulin dependent type 2 diabetes mellitus E11.9; Z79.4 Mixed hyperlipidemia E78.2 Hyperlipidemia type: mixed hyperlipidemia CPT Codes Details - CPT: 82026 - Glucose Monitoring, continuous ([id number])
[2023-12-23 13:27] LABS: Glucose, Whole Blood 118 mg/dL (60-115)
== END 2023-12-23 14:24 | disposition home or self-care (01) ==
PROVIDERS: PCP Physician Assistant; Visit Provider Physician Assistant
DX: E11.65 Type 2 diabetes mellitus with hyperglycemia (principal); E11.69 Type 2 diabetes mellitus with other specified complication; E78.2 Mixed hyperlipidemia; Z79.4 Long term (current) use of insulin
CPT/HCPCS: 95250

== ENCOUNTER → 2023-12-23 13:07 | Outpatient (BNVA) | payer OTHER, SELFPAY | PROVIDERS: PCP Physician Assistant; Visit Provider Physician Assistant | DX: E11.65 Type 2 diabetes mellitus with hyperglycemia (principal); E78.2 Mixed hyperlipidemia; Z79.4 Long term (current) use of insulin | CPT/HCPCS: 82947 ==

== ENCOUNTER → 2023-12-30 09:40 | Outpatient (BNVA) | payer SELFPAY | PROVIDERS: PCP Physician Assistant; Visit Provider Internal Medicine | DX: Z02.79 Encounter for issue of other medical certificate (principal); Z13.1 Encounter for screening for diabetes mellitus | CPT/HCPCS: 82947 ==

== ENCOUNTER 2024-01-06 12:55 | Outpatient (REF) | payer OTHER, SELFPAY ==
[2024-01-06 14:13] LABS: Anion Gap 12 (12-20); Blood Urea Nitrogen 10 mg/dL (9-16); Calcium 9.3 mg/dL (8.4-10.2); Carbon Dioxide 29 mmol/L (22-29); Chloride 104 mmol/L (96-108); Estimated Glomerular Filt Rate > 60; Glucose Random 186 mg/dL (60-115); Potassium 4.3 mmol/L (3.3-5.1); Sodium 141 mmol/L (135-145)
[2024-01-09 10:39] LABS: C Peptide 6.08 ng/mL (0.80-3.85)
[2024-01-10 22:50] LABS: Glutamic acid decarboxylase Ab <5 IU/mL (<5)
[2024-01-17 23:44] LABS: Islet Cell Antibody Screen NEGATIVE (NEGATIVE)
== END 2024-01-06 12:56 | disposition home or self-care (01) ==
LOC: HO.LAB 12:55
PROVIDERS: PCP Physician Assistant; Visit Provider Physician Assistant
DX: E11.65 Type 2 diabetes mellitus with hyperglycemia (principal); E11.9 Type 2 diabetes mellitus without complications; Z79.4 Long term (current) use of insulin
CPT/HCPCS: 36415; 80048; 82947; 84681; 86341

== ENCOUNTER 2024-01-06 13:17 | Outpatient (AMB) | payer OTHER, SELFPAY ==
--- NOTE | 2024-01-06 13:19 | A.OFFVIS_ITS ---
Vital Signs 01/06/24 13:23 Height 6 ft 1 in Weight 232 lb 5.875 oz BMI 30.7 BP 110/60 Blood Pressure Location Lt brachial Position Sitting Pulse 80 Pulse Source Pulse Oximeter Intake Visit Reasons: DM/UNABLE TO REACH Intake Note: Patient presents today for D2MT follow up visit. Last Diabetic Eye exam: 2018 Last Podiatry Visit: Doesn't have one Random Glucose: 177 mg/dl HgA1c: 10.8% 10/15/23 Machine Set Up Required: No Accompanied by: Self / Same As Patient Allergies dulaglutide [From [facility]] Adverse Reaction (Intermediate, Verified 01/06/24 13:28) shakiness gluten Adverse Reaction (Verified 01/06/24 13:28) Gastrointestinal Upset milk Adverse Reaction (Verified 01/06/24 13:28) Gastrointestinal Upset Medication List - Last Reconciled 01/06/24 by Francie Botello PA-C acetaminophen ER 650 mg PO Q12H 30 days atorvastatin 20 mg PO BEDTIME blood-glucose sensor (Dex[employer] [place] G7 Sensor device) use daily As directed for monitor blood glucose clonazepam 1 mg PO TID PRN clotrimazole 1% 1 appl topical BID docusate sodium (Colace) 100 mg PO BID 14 days duloxetine 20 mg PO DAILY [freestyle lite glucometer As directed to test two times per day] [freestyle lite lancets As directed two times per day] [freestyle lite test strips As directed 2 times per day ] gabapentin 300 mg PO DAILY 30 days glucose (Dex4 Glucose) 16 grams (4 x 4 gram) PO Q15M PRN glyburide 2.5 mg PO DAILY 30 days loperamide 2 mg PO Q6H PRN 30 days naproxen 500 mg PO BID PRN 30 days nicotine (polacrilex) 2 mg buccal Q2H PRN 15 days pen needle, diabetic (BD Ultra-Fine Mini Pen Needle) use daily As directed sildenafil (Viagra) 100 mg PO DAILY 7 days sumatriptan succinate 100 mg PO DIRECTED 30 days tizanidine 4 mg PO BEDTIME 90 days tramadol 25 mg PO BID PRN 2 days HPI HPI DM/UNABLE TO REACH: Details: Patient is a 43-year-old male with a significant past medical history of type 2 diabetes, anxiety, depression, hyperlipidemia, ERNESTO on CPAP, presenting today for a follow up regarding his diabetes. He was supposed to do labs prior to today's appointment forgot. Endo: Recently diagnosed type 2 diabetic presenting today for a follow up regarding his diabetes. His last A1c was 10.8. He was seen in the office a couple weeks ago and started on Lantus 10 units, Tradjenta 5 mg daily, glyburide 2.5 mg. He states that he never actually started the Lantus because just being on the Tradjenta and glyburide lowered his blood sugars. He did have a couple lows when he was active. He states that he had to low sugars less than 70 but greater than 60. He does have a history of fatty liver and states that he would like to lose some weight. -metformin he discontinued because he thought it was maybe causing his leg cramps. Trulicity in the past caused him to feel shaky. CGM: At our last visit I did provide him with the Dexcom G7. He did not bring in the ramiro today to be reviewed. He did not contact the pharmacy to pick this up. He states that he has to do that later. No fam hx of diabetes. He met with a fire technology instructor and states that this was helpful. CV: Blood pressure is 110/60. His last labs did show elevated cholesterol and I did start him back on atorvastatin at our last visit. Tolerating it well. [facility] Medical History Anxiety Depression Microscopic hematuria Low libido Tibial plateau fracture, right H/O fracture of tibia Obesity Thoracic disc disease Depression Hidradenitis suppurativa Vitiligo Bronchitis Tibia/fibula fracture Migraines Cervical disc disease with myelopathy Smoker Type 2 diabetes mellitus Opiate dependence Surgical History History of right knee surgery History of removal of cyst History of ankle surgery Family History Father CVD (cardiovascular disease) Brother Heart attack, Onset Age: 50 Sister Breast CA Social History Housing: House Are you a primary healthcare project manager to a significant other at home: No Do you presently have visiting nurse or other home services: No Alcohol intake: never Patient Tobacco Use Status: Current everyday Tobacco user Tobacco use type: Cigarette Cigarette Packs Per Day: 0.5 Cigarettes Per Day: 10 Years Smoked: 25 e-Cigarette/Vaping Use: Never Used Second Hand Smoke Exposure: No service: No Current occupational status: employed 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 Cognitive needs: No Hearing needs: No Vision needs: No Physical Exam Vital Signs: Last Vital Signs Pulse 80 01/06/24 13:23 BP 110/60 01/06/24 13:23 BMI result Body Mass Index 30.7 Const Orientation/consciousness: patient oriented x3 Neck Neck: Yes no lymphadenopathy Thyroid: Thyroid normal Carotids: no bruits Resp Auscultation: clear to auscultation bilaterally Cardio Rate: regular rate Rhythm: regular rhythm Heart sounds: S1 normal heart sound present and S2 normal heart sound present Peripheral pulses: dorsalis pedis present Neuro General: patient oriented x3, gait normal and no focal motor deficits Extrem Other: Monofilament sensation intact bilaterally. Vibratory sensation intact bilaterally. Skin intact. General: Yes normal to inspection Results Reviewed Results Reviewed: Laboratory Last Values Glucose (Clinic) 177 mg/dL (60-115) H 01/06/24 13:31 Laboratory Tests 10/15/23 12/23/23 10:30 13:23 Sodium 138 Potassium 4.2 Chloride 98 Carbon Dioxide 30 H Anion Gap 14 BUN 12 Creatinine 1.15 Estimated GFR > 60 Glucose (Clinic) 118 H Estimat Average Glucose 263 Hemoglobin A1c % 10.8 H AST 35 ALT 45 H Assessment & Plan Assessment & Plan (1) Uncontrolled type 2 diabetes mellitus with hyperglycemia: Code(s): E11.65 - Type 2 diabetes mellitus with hyperglycemia Category: Medical Plan: We will discontinue Tradjenta and start Ozempic. Discussed risks and benefits and adverse effects at length including nausea, vomiting, increased risk of pancreatitis. I will have him follow up in a few months. He will contact me after a month to let me know how he is doing. We did discuss discontinuing the glyburide if he does become hypoglycemic. He is going to work on diet. (2) Hyperlipidemia: Code(s): E78.5 - Hyperlipidemia, unspecified Category: Medical Qualifiers: Hyperlipidemia type: mixed hyperlipidemia Qualified Code(s): E78.2 - Mixed hyperlipidemia Plan: Recently restarted on atorvastatin. Tolerating well. Medications: New semaglutide (Ozempic) for 4 weeks 0.25 mg (0.368 mL) subcut QWEEK 3 mL 2RF Refilled nicotine (polacrilex) 2 mg buccal Q2H 15 days PRN 110 ea 0RF nicotine cravings F17.200 - Nicotine dependence, unspecified, uncomplicated Coding Level of Care Code Est Pt Level 4 (70102) Diagnoses Uncontrolled type 2 diabetes mellitus with hyperglycemia E11.65 Mixed hyperlipidemia E78.2 Hyperlipidemia type: mixed hyperlipidemia
[2024-01-06 13:23] VITALS: BP 110/60; PULSE 80; BMI 30.7
[2024-01-06 13:34] LABS: Glucose, Whole Blood 177 mg/dL (60-115)
== END 2024-01-06 15:05 | disposition home or self-care (01) ==
PROVIDERS: PCP Physician Assistant; Visit Provider Physician Assistant
DX: E11.65 Type 2 diabetes mellitus with hyperglycemia (principal); E78.2 Mixed hyperlipidemia

== ENCOUNTER 2024-01-31 12:36 | Outpatient (AMB) | payer OTHER, SELFPAY ==
[2024-01-31 12:51] VITALS: BMI 31.2
--- NOTE | 2024-01-31 12:51 | MHC.AMNUTRGE ---
VS Expanded 01/31/24 12:51 Height 6 ft 1 in Weight 236 lb 5.369 oz BMI 31.2 Intake Visit Reasons: t2dm Allergies atorvastatin Adverse Reaction (Intermediate, Verified 02/07/24 14:18) knee pain dulaglutide [[facility]] Adverse Reaction (Intermediate, Verified 02/07/24 14:18) shakiness gluten Adverse Reaction (Verified 02/07/24 14:18) Gastrointestinal Upset milk Adverse Reaction (Verified 02/07/24 14:18) Gastrointestinal Upset Nutrition Presentation Details: Pt presents for MNT f/u for T2DM Pt reports working on meal planning , trying to reduce on sugars but challenges when working on reducing smoking BS Monitoring Most Recent Diabetes Results: Creatinine 0.86 mg/dL (0.5-1.4) 01/06/24 Blood Urea Nitrogen 10 mg/dL (9-16) 01/06/24 Sodium 141 mmol/L (135-145) 01/06/24 Potassium 4.3 mmol/L (3.3-5.1) 01/06/24 Chloride 104 mmol/L (96-108) 01/06/24 Carbon Dioxide 29 mmol/L (22-29) 01/06/24 Calcium 9.3 mg/dL (8.4-10.2) 01/06/24 [facility] Medical History Anxiety Depression Microscopic hematuria Low libido Tibial plateau fracture, right H/O fracture of tibia Obesity Thoracic disc disease Depression Hidradenitis suppurativa Vitiligo Bronchitis Tibia/fibula fracture Migraines Cervical disc disease with myelopathy Smoker Type 2 diabetes mellitus Opiate dependence Surgical History History of right knee surgery History of removal of cyst History of ankle surgery Family History Father CVD (cardiovascular disease) Brother Heart attack, Onset Age: 50 Sister Breast CA Social History Housing: House Are you a primary care services manager to a significant other at home: No Do you presently have visiting nurse or other home services: No Alcohol intake: never Patient Tobacco Use Status: Current everyday Tobacco user Tobacco use type: Cigarette Cigarette Packs Per Day: 0.5 Cigarettes Per Day: 10 Years Smoked: 25 e-Cigarette/Vaping Use: Never Used Second Hand Smoke Exposure: Yes service: No Current occupational status: employed 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 Cognitive needs: No Hearing needs: No Vision needs: No Assessment & Plan Assessment & Plan (1) Type 2 diabetes mellitus: Code(s): E11.9 - Type 2 diabetes mellitus without complications Category: Medical Qualifiers: Diabetes mellitus complication detail: with diabetic microalbuminuria Diabetes mellitus complication status: with kidney complications Diabetes mellitus correction insulin use: with technician terminal and repeater use Qualified Code(s): E11.29 - Type 2 diabetes mellitus with other diabetic kidney complication; R80.9 - Proteinuria, unspecified; Z79.4 - technician terminal and repeater (current) use of insulin Plan: Wt: 100 Kg ( 12/2023 ) Est kcal needs as per MSJ: 2700 (40% carb, 30% protein/fat) Est fluid needs as per 25-30 ml/d: 3000 Est prot per day as per 1 g/kg bw: 100 Recommend fiber intake : 8-10 g per day and gradually increase to 25-28 g per day for women and 35-38 g for men or as tolerated Recommend sodium intake per day : less than 2000 mg Educated patient on: ( R = reviewed V = verbalizes understanding N/R = needs review N/A = not applicable Food sources of carbohydrate, adequate serving sizes and its role in various health conditions: R Differences between complex carbohydrates a simple carbohydrates, role of fiber in diet: R Lean protein sources of foods: R V NR Differences between types of fats and role in diet (mono on saturated fat fatty acids, saturated fatty acids, trans fats): R Food sources of sodium in salt and healthy modifications for heart health in kidney health: R V R/V Vitamins and minerals: R V N/R Healthy plate method concept: R Physical activity: Benefits a precaution: R V N/R Hypoglycemia protocol (rule of 15): R V N/R Dietary prevention of Hyperglycemia: R Patient Instructions: Continue working on smoking cessation Choose high fiber foods (carrots, peppers, seeds, nuts), fruit/herb infused [place] Engage in physical activity, 10 minute walks ,stretches , 2-3 times/day Coding Level of Care Code Nutr Indiv Subseq (03844) Diagnoses Type 2 diabetes mellitus with diabetic microalbuminuria, with long-term current use of insulin E11.29; R80.9; Z79.4 Diabetes mellitus complication detail: with diabetic microalbuminuria Diabetes mellitus complication status: with kidney complications Diabetes mellitus correction insulin use: with technician terminal and repeater use Time Spent (min) 20
== END 2024-01-31 13:23 | disposition home or self-care (01) ==
PROVIDERS: PCP Physician Assistant; Visit Provider Dietitian, Registered
DX: E11.29 Type 2 diabetes mellitus with other diabetic kidney complication (principal); R80.9 Proteinuria, unspecified; Z79.4 Long term (current) use of insulin

== ENCOUNTER → 2024-01-31 12:36 | Outpatient (BNVA) | payer OTHER, SELFPAY | PROVIDERS: PCP Physician Assistant; Visit Provider Dietitian, Registered | DX: E11.29 Type 2 diabetes mellitus with other diabetic kidney complication (principal); R80.9 Proteinuria, unspecified; Z79.4 Long term (current) use of insulin; Z71.3 Dietary counseling and surveillance | CPT/HCPCS: 97803 ==

== ENCOUNTER 2024-02-07 14:01 | Outpatient (AMB) | payer OTHER, SELFPAY ==
--- NOTE | 2024-02-07 14:03 | MHC.PC.OV ---
Vital Signs 02/07/24 14:04 Height 6 ft 1 in Weight 235 lb 8 oz BMI 31.1 BP 140/70 H Blood Pressure Location Lt brachial Position Sitting Pulse 77 Pulse Source Pulse Oximeter Pulse Oximetry (%) 98 Oxygen Delivery Method Room Air Intake Visit Reasons: f/u DMII Intake Note: Patient is here to follow up on DM. Pt decline flu shot today. Freight Rate Specialist Required: No Antique Collector: Not Required per policy Accompanied by: Self / Same As Patient Allergies atorvastatin Adverse Reaction (Intermediate, Verified 02/07/24 14:18) knee pain dulaglutide [From Trulicity] Adverse Reaction (Intermediate, Verified 02/07/24 14:18) shakiness gluten Adverse Reaction (Verified 02/07/24 14:18) Gastrointestinal Upset milk Adverse Reaction (Verified 02/07/24 14:18) Gastrointestinal Upset Medication List - Last Reconciled 02/07/24 by Hammad Lopez PA-C acetaminophen ER 650 mg PO Q12H 30 days atorvastatin 20 mg PO BEDTIME blood-glucose sensor (Dexcom G7 Sensor device) use daily As directed for monitor blood glucose clonazepam 1 mg PO TID PRN clotrimazole 1% 1 appl topical BID docusate sodium (Colace) 100 mg PO BID 14 days duloxetine 20 mg PO DAILY [freestyle lite glucometer As directed to test two times per day] [freestyle lite lancets As directed two times per day] [freestyle lite test strips As directed 2 times per day ] gabapentin 300 mg PO DAILY 30 days glucose (Dex4 Glucose) 16 grams (4 x 4 gram) PO Q15M PRN loperamide 2 mg PO Q6H PRN 30 days naproxen 500 mg PO BID PRN 30 days nicotine (polacrilex) 2 mg buccal Q2H PRN 15 days pen needle, diabetic (BD Ultra-Fine Mini Pen Needle) use daily As directed semaglutide (Ozempic) 0.25 mg (0.368 mL) subcut QWEEK sildenafil (Viagra) 100 mg PO DAILY 7 days sumatriptan succinate 100 mg PO DIRECTED 30 days tizanidine 4 mg PO BEDTIME 90 days tramadol 25 mg PO BID PRN 2 days Tobacco use date assessed: 02/07/24 Dental Screening Dental Screen Date: 06/27/23 HPI f/u DMII HPI Details Patient is a 43 here today for a follow-up visit. Patient has a past medical history significant for h/o opiate dependence (in remission now off Suboxone), type 2 diabetes cervical disc disease with myopathy, tobacco use disorder .. Tobacco use disorder:? Patient does understand he needs to quit smoking and would like to wean smoking on his own.? He declines my offers to give nicotine replacement therapy. . Type 2 diabetes: Patient had recent hyperglycemia with difficult to control sugars, A1c elevated to above 10. Has been referred to endocrinology. Has a establish care with endocrinology and started on Ozempic which has helped .. HLD: Most recent lipid panel showing elevated total cholesterol and triglycerides. He has tried a atorvastatin though had intolerable bilateral knee pain. He would like to work on dietary modifications. Goal LDL to be below 100 Laboratory Tests 06/02/21 10/14/21 11/26/21 11:36 15:32 14:07 RBC Hgb Glucose (Clinic) Fasting Glucose Hgb A1c (Clinic) 5.6 5.9 Hemoglobin A1c % ALT Alkaline Phosphata se Triglycerides Cholesterol LDL Cholesterol, C alc Total Testosterone 291 Urine Microalbumin 04/14/22 04/17/22 04/20/23 10:10 10:51 09:12 RBC Hgb Glucose (Clinic) Fasting Glucose Hgb A1c (Clinic) 5.9 6.8 H Hemoglobin A1c % ALT Alkaline Phosphata se Triglycerides Cholesterol 227 LDL Cholesterol, C alc 143 Total Testosterone Urine Microalbumin 10/15/23 01/06/24 02/07/24 10:30 13:31 14:03 RBC 5.92 H Hgb 17.3 Glucose (Clinic) 177 H Fasting Glucose 296 H Hgb A1c (Clinic) 8.9 H Hemoglobin A1c % 10.8 H ALT 45 H Alkaline Phosphata se 125 H Triglycerides 647 H Cholesterol 220 H LDL Cholesterol, C alc Total Testosterone Urine Microalbumin 141.0 PFSH Medical History Anxiety Depression Microscopic hematuria Low libido Tibial plateau fracture, right H/O fracture of tibia Obesity Thoracic disc disease Depression Hidradenitis suppurativa Vitiligo Bronchitis Tibia/fibula fracture Migraines Cervical disc disease with myelopathy Smoker Type 2 diabetes mellitus Opiate dependence Surgical History History of right knee surgery History of removal of cyst History of ankle surgery Family History Father CVD (cardiovascular disease) Brother Heart attack, Onset Age: 50 Sister Breast CA Social History Housing: House Are you a primary continuum of care manager to a significant other at home: No Do you presently have visiting nurse or other home services: No Alcohol intake: never Patient Tobacco Use Status: Current everyday Tobacco user Tobacco use type: Cigarette Cigarette Packs Per Day: 0.5 Cigarettes Per Day: 10 Years Smoked: 25 e-Cigarette/Vaping Use: Never Used Second Hand Smoke Exposure: Yes service: No Current occupational status: employed 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 Agustin Cerda, Micki Harris, Adam Adan and colleagues, with an educational basilio from [employer]. Review of Systems Const Denies headache(s) Eyes Denies loss of vision ENT Denies vertigo, Denies dizziness, Denies headache(s) and Denies sore throat Card Denies chest pain, Denies leg edema and Denies lightheadedness Resp Denies cough, Denies hemoptysis and Denies wheezing GI Denies abdominal pain, Denies melena, Denies constipation, Denies diarrhea and Denies vomiting Denies dysuria, Denies urinary frequency and Denies urinary urgency Musc Denies arthralgias, Denies joint swelling, Denies numbness and Denies tingling Neuro Denies Abnormal speech present, Denies behavioral changes, Denies vertigo, Denies dizziness, Denies headache(s), Denies loss of vision, Denies memory loss, Denies numbness and Denies tingling Psych Denies anxiety, Denies behavioral changes, Denies depression, Denies memory loss and Denies panic attacks Wyatt/Lymph Denies easy bleeding and Denies easy bruising Aller/Immun Denies wheezing Physical exam (Primary Care) Vital Signs: Last Vital Signs Pulse 77 02/07/24 14:04 BP 140/70 H 02/07/24 14:04 Pulse Ox 98 02/07/24 14:04 Oxygen Delivery Method Room Air 02/07/24 14:04 BMI result Body Mass Index 31.1 Tobacco/Smoking Status: Tobacco use Status Tobacco use date assessed 02/07/24 02/07/24 14:13 Patient Tobacco Use Status Current everyday Tobacco 02/07/24 14:13 Tobacco use type Cigarette 02/07/24 14:13 e-Cigarette/Vaping Use Never Used 02/07/24 14:13 Are you ready to quit: No Tobacco cessation counseling provided: Yes Items discussed: Nicotine replacement Relapse Prevention: discussed the importance of a supportive environment, discussed negative mood or depression after quitting, weight gain after smoking is common and discussed dietary, exercise and/or lifestyle changes Number of minutes spent counselin CPT code: 72436 - 4-10 Minutes Thrive Assessment: Date of Thrive Assessment Date Thrive assessed 06/27/23 02/07/24 14:13 Const General: healthy appearing, no acute distress, alert and awake Nutritional Appearance: well nourished Orientation/consciousness: oriented to person, oriented to place and oriented to time HENMT Ears: TM's normal bilaterally General nose exam: Normal nasal mucous membranes and turbinates present Eyes Conjunctivae: conjunctivae normal Sclerae: sclerae normal Pupils: Equal, round and reactive pupils present Neck Neck: Yes no lymphadenopathy and Yes no JVD Thyroid: Thyroid normal Carotids: no bruits Resp Effort & Inspection: normal respiratory effort and not tachypneic Auscultation: no crackles, no rales, no rhonchi and no wheezes Cardio Rate: regular rate Rhythm: regular rhythm Heart sounds: no murmurs and normal S1 and S2 GI Palpation (GI): Soft to palpation, nontender, no hepatomegaly and no splenomegaly Auscultation: normal bowel sounds Skin General skin exam: no rashes or lesions noted and dry skin Neuro General: oriented to person, oriented to place and oriented to time Cranial nerves: Yes Equal, round and reactive pupils present Speech: No Abnormal speech present Gait exam (Neuro): Normal gait present Motor exam (neuro): no tremor noted Extrem Right upper extremity: full ROM Left upper extremity: full ROM Right lower extremity: full ROM; no edema Left lower extremity: full ROM; no edema Psych Mental Status: mental status grossly normal Speech and movement: Normal speech and movement present Affect: normal affect Attitude: cooperative Thought process: Normal thought process present Results AMB Hemoglobin A1c AMB Hemoglobin A1c 8.9 % Last Edit by SARA Burks on 02/07/24 14:14 Results Reviewed Results Reviewed: Laboratory Last Values Hgb A1c (Clinic) 8.9 % (4.0-6.0) H 02/07/24 14:03 Coding Level of Care Code Est Pt Level 4 (86311) Diagnoses Insulin dependent type 2 diabetes mellitus E11.9; Z79.4 Smoker F17.200 Mixed hyperlipidemia E78.2 Hyperlipidemia type: mixed hyperlipidemia Additional Codes Vital Signs *Quality* - CPT code: 60073 - 4-10 Minutes ([id number]) Assessment & Plan Assessment & Plan (1) Insulin dependent type 2 diabetes mellitus: Code(s): E11.9 - Type 2 diabetes mellitus without complications; Z79.4 - intermediate accountant (current) use of insulin Category: Medical Plan: Patient now followed by endocrinology. Today's A1c 8.6 from over 10. He is now Ozempic 0.25 mg weekly. He feels his blood sugars are better controlled as he has been checking his blood sugar from time to time with finger point stick. He will talk to his aerophysicist about higher dose of the Ozempic for better glycemic control Goal A1c is to be below 7.0 (2) Smoker: Code(s): F17.200 - Nicotine dependence, unspecified, uncomplicated Category: Social Hx Plan: Patient does understand he needs to quit smoking. Has been offer nicotine replacement and medication though he declines at this time (3) Hyperlipidemia: Code(s): E78.5 - Hyperlipidemia, unspecified Category: Medical Qualifiers: Hyperlipidemia type: mixed hyperlipidemia Qualified Code(s): E78.2 - Mixed hyperlipidemia Plan: Patient has not been able to tolerate statin therapy. He reports he has started atorvastatin again though he had and tolerable knee pain. He will work extensively on lifestyle and dietary modifications. Will recheck lipid panel in 3 months and if LDL above 100 will consider adding Zetia or fish oil.. Goal LDL is to be below 100 Orders: Orders AMB Hemoglobin A1c Today E11.9 - Type 2 diabetes mellitus without complications, Z79.4 - detention (current) use of insulin Referrals Ophthalmology Referral E11.9 - Type 2 diabetes mellitus without complications, Z79.4 - detention (current) use of insulin Patient Instructions: Goal: A1c to be below 7.0, LDL to be below 100 Barriers: Adherence to physical activity and healthy eating habits
[2024-02-07 14:04] VITALS: BP 140/70; PULSE 77; O2SAT 98; BMI 31.1
== END 2024-02-07 14:40 | disposition home or self-care (01) ==
LOC: HO.HMCH 14:02
PROVIDERS: PCP Physician Assistant; Visit Provider Physician Assistant
DX: E11.9 Type 2 diabetes mellitus without complications (principal); Z79.4 Long term (current) use of insulin; F17.200 Nicotine dependence, unspecified, uncomplicated; E78.2 Mixed hyperlipidemia

== ENCOUNTER → 2024-02-07 14:01 | Outpatient (BNVA) | payer OTHER, SELFPAY | PROVIDERS: PCP Physician Assistant; Visit Provider Physician Assistant | DX: E11.9 Type 2 diabetes mellitus without complications (principal); E78.2 Mixed hyperlipidemia; F17.210 Nicotine dependence, cigarettes, uncomplicated; Z79.4 Long term (current) use of insulin | CPT/HCPCS: 83036 ==

== ENCOUNTER 2024-05-11 10:04 | Outpatient (AMB) | payer OTHER, SELFPAY ==
[2024-05-11 10:11] VITALS: BP 118/72; PULSE 87; TEMP 36.7; O2SAT 98; BMI 31.0
--- NOTE | 2024-05-11 10:11 | AM.OFFWIN_ITS ---
Intake Vital Signs 05/11/24 10:11 Height 6 ft 1 in Weight 235 lb BMI 31.0 BP 118/72 Blood Pressure Location Lt brachial Position Sitting Pulse 87 Pulse Source Pulse Oximeter Temp 98.0 F Temp Source Oral Pulse Oximetry (%) 98 Intake Visit Reasons: EP injured back/needs work note. Intake Note: pt is here for c/o injured back, Tuesday night. patient was seen in a different urgent care last week but did not have xray done. Patient Tobacco Use Status: Current everyday Tobacco user Allergies atorvastatin Adverse Reaction (Intermediate, Verified 05/11/24 10:12) knee pain [facility] Adverse Reaction (Intermediate, Verified 05/11/24 10:12) shakiness gluten Adverse Reaction (Verified 05/11/24 10:12) Gastrointestinal Upset milk Adverse Reaction (Verified 05/11/24 10:12) Gastrointestinal Upset Do you need a note to return to daycare/school/sports/work: Yes HPI HPI Comments History of Present Illness Details 43 y/o male patient who presents to the walk in clinic with c/o Lower back pain since Tuesday. Reports that he was taking off his pants when he bent down and heard a POP and sharp radiating pain left back. Denies numbness or tingling. Denies urinary or bowel symptoms. [facility] Medical History Anxiety Depression Microscopic hematuria Low libido Tibial plateau fracture, right H/O fracture of tibia Obesity Thoracic disc disease Depression Hidradenitis suppurativa Vitiligo Bronchitis Tibia/fibula fracture Migraines Cervical disc disease with myelopathy Smoker Type 2 diabetes mellitus Opiate dependence Surgical History History of right knee surgery History of removal of cyst History of ankle surgery Family History Father CVD (cardiovascular disease) Brother Heart attack, Onset Age: 50 Sister Breast CA Social History Housing: House Are you a primary floor care technician to a significant other at home: No Do you presently have visiting nurse or other home services: No Alcohol intake: never Patient Tobacco Use Status: Current everyday Tobacco user Tobacco use type: Cigarette Cigarette Packs Per Day: 0.5 Cigarettes Per Day: 10 Years Smoked: 25 e-Cigarette/Vaping Use: Never Used Second Hand Smoke Exposure: Yes service: No Current occupational status: employed 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 Cognitive needs: No Hearing needs: No Vision needs: No Review of Systems Const All systems reviewed & are unremarkable except as noted in HPI and below Physical Exam Vital Signs: Last Vital Signs Temp 98.0 F 05/11/24 10:11 Pulse 87 05/11/24 10:11 BP 118/72 05/11/24 10:11 Pulse Ox 98 05/11/24 10:11 BMI result Body Mass Index 31.0 Const General: no acute distress; No comfortable Nutritional Appearance: obese Orientation/consciousness: patient oriented x3 Back/Spine/Pelvis Back: back tenderness Thoracic/Lumbar Spine: pain with thoraco-lumbar ROM, thoraco-lumbar spasm on the right and lumbar spinal tenderness at L5 Neuro General: patient oriented x3, gait normal and moves all extremities Psych Speech and movement: Normal speech and movement present Assessment & Plan Assessment & Plan (1) Lumbar spine pain: Code(s): M54.50 - Low back pain, unspecified Plan: Rest - provided work note. Ordered Lidocaine Patches and Ketorolac Ordered PT. Orders: Orders PT Evaluation and Treatment Today M54.50 - Low back pain, unspecified Medications: New lidocaine 5% leave on most painful area for up to 12 hrs 1 patch topical DAILY 30 ea 0RF M54.50 - Low back pain, unspecified ketorolac maximum total duration of 5 days from all oral, intranasal, or parenteral formulations 10 mg PO Q6H 10 tabs 0RF M54.50 - Low back pain, unspecified Coding Level of Care Code Est Pt Level 3 (58895) Diagnoses Lumbar spine pain M54.50 Time Spent (min) 15
--- OUTSIDE RECORDS SUMMARY | 2024-05-11 10:46 | XMS_ITS | Clinical Summary ---
Author Organization [facility] Address [address] [place] [address] Care Team Providers Care Leak Inspector Name Role Phone Unavailable Primary Care Provider Unavailabl e Source Comments PLEASE NOTE, if this patient is a minor, it may be UNLAWFUL to discuss sensitive information that is contained in these records (such as FAMILY PLANNING, MENTAL HEALTH or SUBSTANCE ABUSE) with the minor patient's parent or other person without the patient's specific authorization.[facility] Immunizations Name Administration Dates Next Due Moderna COVID-19 Vaccine, re d cap blue label, 12+ Primary Series 07/28/2020,06/30/2020 Social History Tobacco Use Types Packs/Day Years Used Date Smoking Tobacco: Never Assessed Social Connections Answer Date Recorded Social Connections and Isolation 0 06/30/2020 Financial Resource Strain Answer Date R ecorded Financial Resource Strain 0 2020 Stress Answer Date Recorded Stress 0 06/30/2020 Physical Activity Answer Date Recorded Physical Activity 0 06/30/2020 Food Insecurity Answer Date Recorded Food 0 06/30/2020 Transportation Needs Answer Date Record ed Transportation 0 06/30/2020 Housing Stability Answer Date Recorded Housing 0 06/30/2020 Safety and Environment Answer Date Eder rded Safety 0 06/30/2020 Utilities Answer Date Recorded Utilities 0 06/30/2020 Employment Answer Date Recorded Employment 0 06/30/2020 Sex and Gender Information Value Date Recorded Sex Assigned at Not on file Legal Sex Male 11:48 AM PDT Gender Identity Not on file Sexual Orientation Not on file Plan of Treatment Health Maintenance Due Date Last Done Comments Diabetes Screening 1980 Hepatitis C Screening 1980 Lipid Screening 1980 Tobacco Screening 1980 HIV Screening 12/15/1995 Annual Preventive Care Visit 1998 Hypertension Screening (#1) 1998 Imm-Hepatitis B (1 of 3 - 19 + 3-dose series) 12/15/1999 Alcohol and Drug Screen 04/11/2023 Depression Annual Screen 04/11/2023 [id number] ( season) 2023 021, 06/30/2020 Imm-Influenza (#1) 2023 12/18/2019, 1 , 01/12/2019, Additional history exists Imm-DTaP/Tdap/Td (2 - Td or Tdap) 03/30/2027 017 Insurance [facility] Member Subscriber Plan / Payer (Ef fective 2020-Present) Name:[place] Relation to Subscriber:Self Name:[place] Payer ID:[id number] Group ID:[id number] Type:Medicaid Address: [facility] [address] [place] [address]
--- OUTSIDE RECORDS SUMMARY | 2024-05-11 10:46 | XMS_ITS | Clinical Summary ---
Author Organization [facility] Address [address] [place] [address] Care Team Providers Care Desk Officer Name Role Phone Unavailable Primary Care Provider Unavailabl e Social History Tobacco Use Types Packs/Day Years Used Date Smoking Tobacco: Never Assessed Sex and Gender Information Value Date Recorded Sex Assigned at Not on file Gender Identity Not on file Sexual Orientation Not on file Plan of Treatment Health Maintenance Due Date Last Done Comments DTaP,Tdap,and Td Vaccines (1 - Tdap) 12/15/1999 Hepatitis B Vaccines (1 of 3 - 19+ 3-dose series) 12/15/1999 Cholesterol Screening (Lipid Panel) 03/14/2022 Depression Screening 03/14/2022 HIV Screening 03/14/2022 Hepatitis C Screening 03/14/2022 Social Influencers of Health Screening 03/14/2022 COVID-19 Vaccine ( - 2023-2 5 season) 2023 Influenza Vaccine (#1) 2023 HIB Vaccines Aged Out No longer eligi ble based on patient's age to complete this topic HPV Vaccines Aged Out No longer eligi ble based on patient's age to complete this topic Hepatitis A Vaccines Aged Out No long er eligible based on patient's age to complete this topic IPV Vaccines Aged Out No longer eligi ble based on patient's age to complete this topic MMR Vaccines Aged Out No longer eligi ble based on patient's age to complete this topic Meningococcal ACWY Vaccine Aged Out N o longer eligible based on patient's age to complete this topic Pneumococcal Vaccine: Pediat rics (0 to 5 Years) and At-Risk Patients (6 to 64 Years) Aged Out No longer eligible b ased on patient's age to complete this topic RSV Immunization Patients Un josiane 20 months Aged Out No longer eligible b ased on patient's age to complete this topic Varicella Vaccines Aged Out No longer eligible based on patient's age to complete this topic
== END 2024-05-11 10:27 | disposition home or self-care (01) ==
PROVIDERS: PCP Physician Assistant; Visit Provider Nurse Practitioner Family
DX: M54.50 Low back pain, unspecified (principal)

== ENCOUNTER → 2024-05-11 10:04 | Outpatient (BNVA) | payer OTHER, SELFPAY | PROVIDERS: PCP Physician Assistant | DX: E11.65 Type 2 diabetes mellitus with hyperglycemia (principal); E78.2 Mixed hyperlipidemia; E66.09 Other obesity due to excess calories; Z68.31 Body mass index [BMI] 31.0-31.9, adult; M54.50 Low back pain, unspecified | CPT/HCPCS: 82947; 83036 ==

== ENCOUNTER 2024-05-11 13:30 | Outpatient (AMB) | payer OTHER, SELFPAY ==
[2024-05-11 13:32] VITALS: BP 128/80; PULSE 74; BMI 33.2
--- NOTE | 2024-05-11 13:32 | A.OFFVIS_ITS ---
Vital Signs 05/11/24 13:32 Height 6 ft 1 in Weight 251 lb 15.814 oz BMI 33.2 BP 128/80 Blood Pressure Location Rt brachial Position Sitting Pulse 74 Pulse Source Pulse Oximeter Intake Visit Reasons: DM/Left vm Intake Note: Patient present today for Type 2 Diabetes Mellitus. Last Diabetic eye exam: 4 years ago Last Podiatry Visit: Doesn't have one Random Glucose: 134 mg/dl HgA1C: 6.3% Paramedic Supervisor Required: No Accompanied by: Self / Same As Patient Allergies atorvastatin Adverse Reaction (Intermediate, Verified 05/11/24 13:37) knee pain dulaglutide [From Trulicity] Adverse Reaction (Intermediate, Verified 05/11/24 13:37) shakiness gluten Adverse Reaction (Verified 05/11/24 13:37) Gastrointestinal Upset milk Adverse Reaction (Verified 05/11/24 13:37) Gastrointestinal Upset HPI HPI DM/Left vm: Details: Patient is a 43-year-old male with a significant past medical history of type 2 diabetes, anxiety, depression, hyperlipidemia, ERNESTO on CPAP, presenting today for a follow up regarding his diabetes. He was supposed to do labs prior to today's appointment forgot. Endo: Recently diagnosed type 2 diabetic presenting today for a follow up regarding his diabetes. His last A1c was 8.6 and today it is 6.3. He is tolerating the ozempic 0.5 mg weekly. He does have a history of fatty liver and states that he would like to lose some weight. He has not lost much weight with this. -metformin he discontinued because he thought it was maybe causing his leg cramps. Trulicity in the past caused him to feel shaky. CGM: At our last visit I did provide him with the Dexcom G7. He did not bring in the ramiro today to be reviewed. He did not contact the pharmacy to pick this up. He states that he has to do that later. No fam hx of diabetes. He met with a boiler service technician and states that this was helpful. CV: Blood pressure is 128/80. His last labs did show elevated cholesterol and I did start him back on atorvastatin at our last visit. Tolerating it well. [facility] Medical History (Updated 05/11/24 @ 13:55 by Francie Botello PA-C) Anxiety Depression Microscopic hematuria Low libido Tibial plateau fracture, right H/O fracture of tibia Obesity Thoracic disc disease Depression Hidradenitis suppurativa Vitiligo Bronchitis Tibia/fibula fracture Migraines Cervical disc disease with myelopathy Smoker Type 2 diabetes mellitus Opiate dependence Surgical History History of right knee surgery History of removal of cyst History of ankle surgery Family History Father CVD (cardiovascular disease) Brother Heart attack, Onset Age: 50 Sister Breast CA Social History Housing: House Are you a primary tire care manager to a significant other at home: No Do you presently have visiting nurse or other home services: No Alcohol intake: never Patient Tobacco Use Status: Current everyday Tobacco user Tobacco use type: Cigarette Cigarette Packs Per Day: 0.5 Cigarettes Per Day: 10 Years Smoked: 25 e-Cigarette/Vaping Use: Never Used Second Hand Smoke Exposure: Yes service: No Current occupational status: employed 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 Cognitive needs: No Hearing needs: No Vision needs: No Physical Exam Vital Signs: Last Vital Signs Pulse 74 05/11/24 13:32 BP 128/80 05/11/24 13:32 BMI result Body Mass Index 33.2 Const Orientation/consciousness: patient oriented x3 Neck Neck: Yes no lymphadenopathy Thyroid: Thyroid normal Carotids: no bruits Resp Auscultation: clear to auscultation bilaterally Cardio Rate: regular rate Rhythm: regular rhythm Heart sounds: S1 normal heart sound present and S2 normal heart sound present Peripheral pulses: dorsalis pedis present Neuro General: patient oriented x3, gait normal and no focal motor deficits Extrem Other: Monofilament sensation intact bilaterally. Vibratory sensation intact bilaterally. Skin intact. General: Yes normal to inspection Results AMB Hemoglobin A1c AMB Hemoglobin A1c 6.3 % Last Edit by SARA Beyer on 05/11/24 13:55 Results Reviewed Results Reviewed: Laboratory Last Values Glucose (Clinic) 134 mg/dL (60-115) H 05/11/24 13:39 Laboratory Tests 10/15/23 01/06/24 02/07/24 10:30 13:15 14:03 Creatinine 0.86 Estimated GFR > 60 Hgb A1c (Clinic) 8.9 H Triglycerides 647 H Cholesterol 220 H LDL Cholesterol, Calc TNP HDL Cholesterol 32 L Urine Creatinine 186.36 Urine Microalbumin 141.0 Microalb/Creat Ratio 75.6 H Assessment & Plan Assessment & Plan (1) Controlled type 2 diabetes mellitus: Code(s): E11.9 - Type 2 diabetes mellitus without complications Category: Medical Plan: continue current plan well controlled encouraged diet changes f/u 3 months or sooner if needed (2) Hyperlipidemia: Code(s): E78.5 - Hyperlipidemia, unspecified Category: Medical Qualifiers: Hyperlipidemia type: mixed hyperlipidemia Qualified Code(s): E78.2 - Mixed hyperlipidemia Plan: trying diet will recheck lipids he would be open to starting another drug for this (3) Obese: Code(s): E66.9 - Obesity, unspecified Category: Medical Qualifiers: Body mass index: BMI 31.0-31.9 Obesity classification: adult class 1 (BMI 30 - 34.9) Obesity type: due to excess calories Serious obesity comorbid ity presence: without serious comorbidity Qualified Code(s): E66.09 - Other obesity due to excess calories; Z68.31 - Body mass index [BMI] 31.0-31.9, adult Plan: states that he is working on diet Orders: Orders AMB Hemoglobin A1c Today E11.65 - Type 2 diabetes mellitus with hyperglycemia, E11.9 - Type 2 diabetes mellitus without complications, Z13.9 - Encounter for screening, unspecified, Z79.4 - MCC (current) use of insulin Coding Level of Care Code Est Pt Level 4 (51986) Complex EM visit Add On G2211 Diagnoses Controlled type 2 diabetes mellitus E11.9 Mixed hyperlipidemia E78.2 Hyperlipidemia type: mixed hyperlipidemia Class 1 obesity due to excess calories without serious comorbidity with body mass index (BMI) of 31.0 to 31.9 in adult E66.09; Z68.31 Body mass index: BMI 31.0-31.9 Obesity classification: adult class 1 (BMI 30 - 34.9) Obesity type: due to excess calories Serious obesity comorbidity presence: without serious comorbidity
--- OUTSIDE RECORDS SUMMARY | 2024-05-11 13:39 | XMS_ITS | Clinical Summary ---
Author Organization [facility] Address [address] [place] [address] Care Team Providers Care Housekeeping/Laundry Name Role Phone Unavailable Primary Care Provider [...] Drug Screen 04/11/2023 Depression Annual Screen 04/11/2023 [id number] ( season) 2023 021, 06/30/2020 Imm-Influenza (#1) 2023 12/18/2019, 1 , 01/12/2019, Additional history exists Imm-DTaP/Tdap/Td (2 - Td or Tdap) 03/30/2027 017 Insurance [facility] Member Subscriber Plan / Payer (Ef fective 2020-Present) Name:[place] Relation to Subscriber:Self Name:[place] Payer ID:[id number] Group ID:[id number] Type:Medicaid Address: [facility] [address] [place] [address]
--- OUTSIDE RECORDS SUMMARY | 2024-05-11 13:39 | XMS_ITS | Clinical Summary ---
Author Organization [facility] Address [address] [place] [address] Care Team Providers Care Cad Intern Name Role Phone Unavailable Primary Care Provider [...]
[2024-05-11 13:43] LABS: Glucose, Whole Blood 134 mg/dL (60-115)
== END 2024-05-11 14:04 | disposition home or self-care (01) ==
PROVIDERS: PCP Physician Assistant; Visit Provider Physician Assistant
DX: E11.9 Type 2 diabetes mellitus without complications (principal); E78.2 Mixed hyperlipidemia; E66.09 Other obesity due to excess calories; Z68.31 Body mass index [BMI] 31.0-31.9, adult; Z13.9 Encounter for screening, unspecified; Z79.4 Long term (current) use of insulin; E11.65 Type 2 diabetes mellitus with hyperglycemia

== ENCOUNTER → 2024-05-28 15:46 | Outpatient (BNVA) | payer OTHER, SELFPAY | PROVIDERS: PCP Physician Assistant; Visit Provider Physician Assistant ==

== ENCOUNTER 2024-05-29 14:31 | Outpatient (AMB) | payer OTHER, SELFPAY ==
--- NOTE | 2024-05-29 14:44 | A.OFFVIS_ITS ---
VS Expanded 05/29/24 14:45 Height 6 ft 1 in Weight 249 lb 1.957 oz BMI 32.9 Intake Visit Reasons: DM Allergies atorvastatin Adverse Reaction (Intermediate, Verified 05/28/24 15:49) knee pain dulaglutide [From Trulicity] Adverse Reaction (Intermediate, Verified 05/28/24 15:49) shakiness gluten Adverse Reaction (Verified 05/28/24 15:49) Gastrointestinal Upset milk Adverse Reaction (Verified 05/28/24 15:49) Gastrointestinal Upset Nutrition Presentation Details: Pt presents for MNT f/u for T2DM Pt reports doing well, working on following [employer] plate method , A1c at 6.3% on 04/2024. Food frequency omega 3 sources: fish 1x/wk, nuts/seeds Dairy : non dairy alternatives 2-3 servings/d fruits: 0-1/d ve serving/d starches > 25 serving/d Physical activity ADL Etoh/smoking--- hypoglycemia - denies BS Monitoring Most Recent Diabetes Results: No Data to Display [facility] Medical History (Updated 05/11/24 @ 13:55 by Francie Botello PA-C) Anxiety Depression Microscopic hematuria Low libido Tibial plateau fracture, right H/O fracture of tibia Obesity Thoracic disc disease Depression Hidradenitis suppurativa Vitiligo Bronchitis Tibia/fibula fracture Migraines Cervical disc disease with myelopathy Smoker Type 2 diabetes mellitus Opiate dependence Surgical History History of right knee surgery History of removal of cyst History of ankle surgery Family History Father CVD (cardiovascular disease) Brother Heart attack, Onset Age: 50 Sister Breast CA Social History Housing: House Are you a primary wound care physician to a significant other at home: No Do you presently have visiting nurse or other home services: No Alcohol intake: never Patient Tobacco Use Status: Current everyday Tobacco user Tobacco use type: Cigarette Cigarette Packs Per Day: 0.5 Cigarettes Per Day: 10 Years Smoked: 25 e-Cigarette/Vaping Use: Never Used Second Hand Smoke Exposure: Yes service: No Current occupational status: employed 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 Cognitive needs: No Hearing needs: No Vision needs: No Assessment & Plan Assessment & Plan (1) Type 2 diabetes mellitus: Code(s): E11.9 - Type 2 diabetes mellitus without complications Category: Medical Qualifiers: Diabetes mellitus complication detail: with diabetic microalbuminuria Diabetes mellitus complication status: with kidney complications Diabetes mellitus penitentiary insulin use: with penitentiary use Qualified Code(s): E11.29 - Type 2 diabetes mellitus with other diabetic kidney complication; R80.9 - Proteinuria, unspecified; Z79.4 - terminal carman (current) use of insulin Plan: Wt: 100 Kg ( 12/2023 ), 124 kg (06/05)! Est kcal needs as per MSJ: 2700 (40% carb, 30% protein/fat) Est fluid needs as per 25-30 ml/d: 3000 Est prot per day as per 1 g/kg bw: 100 Recommend fiber intake : 8-10 g per day and gradually increase to 25-28 g per day for women and 35-38 g for men or as tolerated Recommend sodium intake per day : less than 2000 mg Educated patient on: ( R = reviewed V = verbalizes understanding N/R = needs review N/A = not applicable * Food sources of carbohydrate, adequate serving sizes and its role in various health conditions: R * Differences between complex carbohydrates a simple carbohydrates, role of fiber in diet: R * Lean protein sources of foods: R * Differences between types of fats and role in diet (mono on saturated fat fatty acids, saturated fatty acids, trans fats): R * Food sources of sodium in salt and healthy modifications for heart health in kidney health: R V R/V * Vitamins and minerals: R V N/R * Healthy plate method concept: R * Physical activity: Benefits a precaution: R V N/R * Hypoglycemia protocol (rule of 15): R , V * Dietary prevention of Hyperglycemia: R , V * Patient Instructions: Work on prevention of weight gain by reducing on fat intake (by choosing lower fat food options, less butter/gravies, fried foods and similar) Choose lean protein foods, baked/steamed Engage in physical activity goal 30-60 min 3 x/week or as tolerated unless otherwise specified by your doctor Treat low blood sugar (less than 70 ) with 15 g of carbs/following rule of 15 and notify your doctor of any hypoglycemia Coding Level of Care Code Nutr Indiv Subseq (76207) Diagnoses Type 2 diabetes mellitus with diabetic microalbuminuria, with long-term current use of insulin E11.29; R80.9; Z79.4 Diabetes mellitus complication detail: with diabetic microalbuminuria Diabetes mellitus complication status: with kidney complications Diabetes mellitus intermodal truck driver insulin use: with intermodal truck driver use
[2024-05-29 14:45] VITALS: BMI 32.9
--- OUTSIDE RECORDS SUMMARY | 2024-05-29 15:32 | XMS_ITS | Clinical Summary ---
Author Organization [facility] Address [address] [place] [address] Care Team Providers Care Postal Service Clerk Name Role Phone Unavailable Primary Care Provider Unavailabl e Social History Tobacco Use Types Packs/Day Years Used Date Smoking Tobacco: Never Assessed Sex and Gender Information Value Date Recorded Sex Assigned at Not on file Legal Sex Male 5:32 AM EST Gender Identity Not on file Sexual Orientation Not on file Plan of Treatment Health Maintenance Due Date Last Done Comments DTaP,Tdap,and Td Vaccines (1 - Tdap) 12/15/1999 Hepatitis B Vaccines (1 of 3 - 19+ 3-dose series) 12/15/1999 Cholesterol Screening (Lipid Panel) 03/14/2022 Depression Screening 03/14/2022 HIV Screening 03/14/2022 Hepatitis C Screening 03/14/2022 Social Influencers of Health Screening 03/14/2022 COVID-19 Vaccine (2023-2 5 season) 2023 Influenza Vaccine (#1) 2023 [...] patient's age to complete this topic Meningococcal B Vacine Aged Out No lo nger eligible based on patient's age to complete [...]
--- OUTSIDE RECORDS SUMMARY | 2024-05-29 15:32 | XMS_ITS | Clinical Summary ---
Author Organization [facility] Address [address] [place] [address] Care Team Providers Care Heating Fixture Tender Name Role Phone Unavailable Primary Care Provider [...] Drug Screen 04/11/2023 Depression Annual Screen 04/11/2023 [id number] ( season) 2023 021, 06/30/2020 Imm-Influenza (#1) 2023 12/18/2019, 1 , 01/12/2019, Additional history exists Imm-DTaP/Tdap/Td (2 - Td or Tdap) 03/30/2027 017 Insurance [facility] PL[employer] Member Subscriber Plan / Payer (Ef fective 2020-Present) Name:[place] Relation to Subscriber:Self Name:[place] Payer ID:[id number] Group ID:[id number] Type:Medicaid Address: [facility] [address] [place] [address]
== END 2024-05-29 15:07 | disposition home or self-care (01) ==
PROVIDERS: PCP Physician Assistant; Visit Provider Dietitian, Registered
DX: E11.29 Type 2 diabetes mellitus with other diabetic kidney complication (principal); R80.9 Proteinuria, unspecified; Z79.4 Long term (current) use of insulin

== ENCOUNTER → 2024-05-29 14:31 | Outpatient (BNVA) | payer OTHER, SELFPAY | PROVIDERS: PCP Physician Assistant; Visit Provider Dietitian, Registered | DX: E11.29 Type 2 diabetes mellitus with other diabetic kidney complication (principal); R80.9 Proteinuria, unspecified; Z79.4 Long term (current) use of insulin; Z71.3 Dietary counseling and surveillance | CPT/HCPCS: 97803 ==

== ENCOUNTER 2024-06-25 14:33 | Outpatient (AMB) | payer OTHER, SELFPAY ==
--- NOTE | 2024-06-25 14:37 | A.OFFVIS_ITS ---
Vital Signs 06/25/24 14:39 Height 6 ft 1 in Weight 255 lb 11.779 oz BMI 33.7 BP 118/78 Blood Pressure Location Rt brachial Position Sitting Pulse 83 Pulse Source Pulse Oximeter Pulse Oximetry (%) 96 Oxygen Delivery Method Room Air Intake Visit Reasons: DM Intake Note: Patient presents today for a follow-up on Type 2 Diabetes Mellitus: Last Diabetic eye exam was on: DUE Last Podiatry exam was on: Patient does not see a Laborer Tree Tapping Most recent HbA1c: 6.3%, 05/11/2024 Random Glucose- 134 mg/dL, Today Slat Basket Maker Helper Machine Required: No Accompanied by: Self / Same As Patient Allergies atorvastatin Adverse Reaction (Intermediate, Verified 05/28/24 15:49) knee pain [facility]aglutide [facility]] Adverse Reaction (Intermediate, Verified 05/28/24 15:49) shakiness gluten Adverse Reaction (Verified 05/28/24 15:49) Gastrointestinal Upset milk Adverse Reaction (Verified 05/28/24 15:49) Gastrointestinal Upset Medication List - Last Reconciled 06/25/24 by Francie Botello PA-C acetaminophen ER 650 mg PO Q12H 30 days blood-glucose sensor (Dexcom G7 Sensor device) use daily As directed for monitor blood glucose clonazepam 1 mg PO TID PRN clotrimazole 1% 1 appl topical BID duloxetine mg PO DAILY [freestyle lite glucometer As directed to test two times per day] [freestyle lite lancets As directed two times per day] [freestyle lite test strips As directed 2 times per day ] gabapentin 300 mg PO DAILY 30 days glucose (Dex4 Glucose) 16 grams (4 x 4 gram) PO Q15M PRN ketorolac 10 mg PO Q6H lidocaine 5% 1 patch topical DAILY loperamide 2 mg PO Q6H PRN 30 days naproxen 500 mg PO BID PRN 30 days nicotine (polacrilex) 2 mg buccal Q2H PRN 15 days pen needle, diabetic (BD Ultra-Fine Mini Pen Needle) use daily As directed sildenafil (Viagra) 100 mg PO DAILY 7 days sumatriptan succinate 100 mg PO DIRECTED 30 days tizanidine 4 mg PO Q6H 90 days tramadol 25 mg PO BID PRN 2 days HPI HPI DM: Details: Patient is a 43-year-old male with a significant past medical history of type 2 diabetes, anxiety, depression, hyperlipidemia, ERNESTO on CPAP, presenting today for a follow up regarding his diabetes. He was supposed to do labs prior to today's appointment forgot. States that he was supposed to go Sat but forgot to fast so did not go. Endo: Recently diagnosed type 2 diabetic presenting today for a follow up regarding his diabetes. His last A1c was 6.3. He is tolerating the ozempic 0.5 mg weekly. He does have a history of fatty liver and states that he would like to lose some weight. He has not lost much weight with this. He is interested in trying higher doses -metformin he discontinued because he thought it was maybe causing his leg cramps. Trulicity in the past caused him to feel shaky. No fam hx of diabetes. He met with a instrument worker and states that this was helpful. CV: Blood pressure is 118/78. His last labs did show elevated cholesterol and I did start him back on atorvastatin at our last visit. Tolerating it well. Overdue to have his cholesterol rechecked. [facility] Medical History (Updated 05/11/24 @ 13:55 by Francie Botello PA-C) Anxiety Depression Microscopic hematuria Low libido Tibial plateau fracture, right H/O fracture of tibia Obesity Thoracic disc disease Depression Hidradenitis suppurativa Vitiligo Bronchitis Tibia/fibula fracture Migraines Cervical disc disease with myelopathy Smoker Type 2 diabetes mellitus Opiate dependence Surgical History History of right knee surgery History of removal of cyst History of ankle surgery Family History Father CVD (cardiovascular disease) Brother Heart attack, Onset Age: 50 Sister Breast CA Social History Housing: House Are you a primary medicare compliance auditor to a significant other at home: No Do you presently have visiting nurse or other home services: No Alcohol intake: never Patient Tobacco Use Status: Current everyday Tobacco user Tobacco use type: Cigarette Cigarette Packs Per Day: 0.5 Cigarettes Per Day: 10 Years Smoked: 25 e-Cigarette/Vaping Use: Never Used Second Hand Smoke Exposure: Yes service: No Current occupational status: employed 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 Cognitive needs: No Hearing needs: No Vision needs: No Physical Exam Vital Signs: BMI result Body Mass Index 33.7 Const Orientation/consciousness: patient oriented x3 HEENT Ears: hearing grossly normal bilaterally Neck Thyroid: Thyroid normal Lymphatic: no lymphadenopathy noted Resp Auscultation: clear to auscultation bilaterally Cardio Rate: regular rate Rhythm: regular rhythm Heart sounds: S1 normal heart sound present and S2 normal heart sound present Skin General skin exam: no rashes or lesions noted Neuro General: patient oriented x3, gait normal and no focal motor deficits Results Reviewed Results Reviewed: Laboratory Tests 10/15/23 01/06/24 02/07/24 10:30 13:15 14:03 Creatinine 0.86 Estimated GFR > 60 Hgb A1c (Clinic) 8.9 H C-Peptide 6.08 H Triglycerides 647 H Cholesterol 220 H LDL Cholesterol, Calc TNP HDL Cholesterol 32 L Islet Cell Ab Screen NEGATIVE ERIN Antibody <5 05/11/24 13:41 Creatinine Estimated GFR Hgb A1c (Clinic) 6.3 H C-Peptide Triglycerides Cholesterol LDL Cholesterol, Calc HDL Cholesterol Islet Cell Ab Screen ERIN Antibody Assessment & Plan Assessment & Plan (1) Controlled type 2 diabetes mellitus: Code(s): E11.9 - Type 2 diabetes mellitus without complications Category: Medical Plan: increase ozempic to 1 mg weekly labs ordered f/u 3 months or sooner prn (2) Hyperlipidemia: Code(s): E78.5 - Hyperlipidemia, unspecified Category: Medical Qualifiers: Hyperlipidemia type: mixed hyperlipidemia Qualified Code(s): E78.2 - Mixed hyperlipidemia Plan: Advised that he needs to complete fasting labs. Orders: Orders Comprehensive [place]. Panel Fast Today E11.9 - Type 2 diabetes mellitus without complications, E78.2 - Mixed hyperlipidemia Lipid Panel Today E11.9 - Type 2 diabetes mellitus without complications, E78.2 - Mixed hyperlipidemia Hemoglobin A1c Today E11.9 - Type 2 diabetes mellitus without complications, E78.2 - Mixed hyperlipidemia, R73.01 - Impaired fasting glucose Microalbumin, Random (w Creat) Today E11.9 - Type 2 diabetes mellitus without complications, E78.2 - Mixed hyperlipidemia Medications: New semaglutide (Ozempic) 1 mg (0.75 mL) subcut QWEEK 3 mL 5RF Coding Level of Care Code Est Pt Level 4 (22665) Complex EM visit Add On G2211 Diagnoses Controlled type 2 diabetes mellitus E11.9 Mixed hyperlipidemia E78.2 Hyperlipidemia type: mixed hyperlipidemia
[2024-06-25 14:39] VITALS: BP 118/78; PULSE 83; O2SAT 96; BMI 33.7
[2024-06-25 14:47] LABS: Glucose, Whole Blood 119 mg/dL (60-115)
--- OUTSIDE RECORDS SUMMARY | 2024-06-25 17:08 | XMS_ITS | Clinical Summary ---
Author Organization [facility] Address [address] [place] [address] Care Team Providers Care Residential Insurance Inspector Name Role Phone Unavailable Primary Care [...] 1980 Tobacco Screening 1980 HIV Screening 12/15/1995 Hypertension Screening (#1) 1998 Imm-Hepatitis B (1 of 3 - 19 + 3-dose series) 12/15/1999 [id number] ( season) 2023 021, 06/30/2020 Imm-Influenza (#1) 2023 12/18/2019, 1 , 01/12/2019, Additional history exists Alcohol and Drug Screen 04/11/2024 Depression Annual Screen 04/11/2024 Imm-DTaP/Tdap/Td (2 - Td or Tdap) 03/30/2027 017 Insurance [facility] Member Subscriber Plan / Payer (Ef fective 2020-Present) Name:[place] Relation to Subscriber:Self Name:[place] Payer ID:[id number] Group ID:[id number] Type:Medicaid Address: [facility] [address] [place] [address]
--- OUTSIDE RECORDS SUMMARY | 2024-06-25 17:08 | XMS_ITS | Clinical Summary ---
Author Organization [facility] it Address [address] [place] [address] Care Team Providers Care Flight Nurse Name Role Phone Unavailable Primary Care Provider [...]
== END 2024-06-25 14:56 | disposition home or self-care (01) ==
LOC: HO.ENCR 14:34
PROVIDERS: PCP Physician Assistant; Visit Provider Physician Assistant
DX: E11.9 Type 2 diabetes mellitus without complications (principal); E78.2 Mixed hyperlipidemia

== ENCOUNTER → 2024-06-25 14:33 | Outpatient (BNVA) | payer OTHER, SELFPAY | PROVIDERS: PCP Physician Assistant; Visit Provider Physician Assistant | DX: E11.65 Type 2 diabetes mellitus with hyperglycemia (principal); F33.1 Major depressive disorder, recurrent, moderate; F41.1 Generalized anxiety disorder; R06.02 Shortness of breath; E66.811 Obesity, class 1; Z68.33 Body mass index [BMI] 33.0-33.9, adult; F17.210 Nicotine dependence, cigarettes, uncomplicated; Z79.899 Other long term (current) drug therapy | CPT/HCPCS: 82947; 83036; 96127 ==

== ENCOUNTER 2024-06-25 15:02 | Outpatient (AMB) | payer OTHER, SELFPAY ==
[2024-06-25 15:13] VITALS: BP 120/82; PULSE 82; O2SAT 93; BMI 33.0
--- NOTE | 2024-06-25 15:13 | A.OFFPC_ITS ---
Vital Signs 06/25/24 15:13 Height 6 ft 1 in Weight 250 lb 4 oz BMI 33.0 BP 120/82 Blood Pressure Location Lt brachial Position Sitting Pulse 82 Pulse Source Pulse Oximeter Pulse Oximetry (%) 93 Oxygen Delivery Method Room Air Intake Visit Reasons: f/u DMII Paymaster Of Purses Required: No Accompanied by: Self / Same As Patient Allergies atorvastatin Adverse Reaction (Intermediate, Verified 06/25/24 15:38) knee pain dulaglutide [From Trulicity] Adverse Reaction (Intermediate, Verified 06/25/24 15:38) shakiness gluten Adverse Reaction (Verified 06/25/24 15:38) Gastrointestinal Upset milk Adverse Reaction (Verified 06/25/24 15:38) Gastrointestinal Upset Medication List - Last Reconciled 06/25/24 by Hammad Lopez PA-C acetaminophen ER 650 mg PO Q12H 30 days blood-glucose sensor (Dexcom G7 Sensor device) use daily As directed for monitor blood glucose clonazepam 1 mg PO TID PRN clotrimazole 1% 1 appl topical BID duloxetine mg PO DAILY [freestyle lite glucometer As directed to test two times per day] [freestyle lite lancets As directed two times per day] [freestyle lite test strips As directed 2 times per day ] gabapentin 300 mg PO DAILY 30 days glucose (Dex4 Glucose) 16 grams (4 x 4 gram) PO Q15M PRN ketorolac 10 mg PO Q6H lidocaine 5% 1 patch topical DAILY loperamide 2 mg PO Q6H PRN 30 days naproxen 500 mg PO BID PRN 30 days nicotine (polacrilex) 2 mg buccal Q2H PRN 15 days pen needle, diabetic (BD Ultra-Fine Mini Pen Needle) use daily As directed semaglutide (Ozempic) 1 mg (0.75 mL) subcut QWEEK sildenafil (Viagra) 100 mg PO DAILY 7 days sumatriptan succinate 100 mg PO DIRECTED 30 days tizanidine 4 mg PO Q6H 90 days tramadol 25 mg PO BID PRN 2 days Tobacco use date assessed: 06/25/24 Dental Screening Dental Screen Date: 06/25/24 Did you have a dental visit in the last 12 months?: No Did you have a dental problem in the last 6 months where you did not have access to dental care?: No Was dental information given to patient?: Patient has dentist HPI f/u DMII HPI Details Patient is a 43 here today for a follow-up visit. Patient has a past medical history significant for h/o opiate dependence (in remission now off Suboxone), type 2 diabetes , cervical disc disease with myopathy, tobacco use disorder .. Tobacco use disorder:? Patient does understand he needs to quit smoking and would like to wean smoking on his own.? He declines my offers to give nicotine replacement therapy. He does report at time hearing a wheeze while lying down to sleep. He does report some shortness of breath at times and his concerned about his lungs. PLAN: Will send for pulmonary function testing to evaluate for COPD. Will supply patient with an albuterol inhaler to use during times of wheezing. . Type 2 diabetes: He has establish care with [facility], he was taken off of metformin due to side effects and was started on Ozempic which was up titrated to 1 mg. His A1c is much improved. .. HLD: Most recent lipid panel showing elevated total cholesterol and triglycerides. He has tried a atorvastatin though had intolerable bilateral knee pain. He would like to work on dietary modifications. Goal LDL to be below 100 Laboratory Tests 06/02/21 10/14/21 11/26/21 11:36 15:32 14:07 RBC Hgb Glucose (Clinic) Fasting Glucose Hgb A1c (Clinic) 5.6 5.9 Hemoglobin A1c % ALT Alkaline Phosphata se Triglycerides Cholesterol LDL Cholesterol, C alc Total Testosterone 291 Urine Microalbumin 04/14/22 04/17/22 04/20/23 10:10 10:51 09:12 RBC Hgb Glucose (Clinic) Fasting Glucose Hgb A1c (Clinic) 5.9 6.8 H Hemoglobin A1c % ALT Alkaline Phosphata se Triglycerides Cholesterol 227 LDL Cholesterol, C alc 143 Total Testosterone Urine Microalbumin 10/15/23 01/06/24 02/07/24 10:30 13:31 14:03 RBC 5.92 H Hgb 17.3 Glucose (Clinic) 177 H Fasting Glucose 296 H Hgb A1c (Clinic) 8.9 H Hemoglobin A1c % 10.8 H ALT 45 H Alkaline Phosphata se 125 H Triglycerides 647 H Cholesterol 220 H LDL Cholesterol, C alc Total Testosterone Urine Microalbumin 141.0 [facility] Medical History (Updated 06/26/24 @ 07:46 by Hammad Lopez PA-C) Axillary hyperhidrosis Anxiety Depression Microscopic hematuria Low libido Tibial plateau fracture, right H/O fracture of tibia Obesity Thoracic disc disease Depression Hidradenitis suppurativa Vitiligo Bronchitis Tibia/fibula fracture Migraines Cervical disc disease with myelopathy Smoker Type 2 diabetes mellitus Opiate dependence Surgical History History of right knee surgery History of removal of cyst History of ankle surgery Family History Father CVD (cardiovascular disease) Brother Heart attack, Onset Age: 50 Sister Breast CA Social History Housing: House Are you a primary critical care unit nurse to a significant other at home: No Do you presently have visiting nurse or other home services: No Alcohol intake: never Patient Tobacco Use Status: Current everyday Tobacco user Tobacco use type: Cigarette Cigarette Packs Per Day: 0.5 Cigarettes Per Day: 10 Years Smoked: 25 e-Cigarette/Vaping Use: Never Used Second Hand Smoke Exposure: Yes service: No Current occupational status: employed 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 1. Little interest or pleasure in doing things: not at all 2. Feeling down, depressed, or hopeless: not at all 3. Trouble falling or staying asleep, or sleeping too much: not at all 4. Feeling tired or having little energy: not at all 5. Poor appetite or overeating: not at all 6. Feeling bad about yourself - or that you are a failure or have let yourself or your family down: not at all 7. Trouble concentrating on things, such as reading the newspaper or watching television: not at all 8. Moving or speaking so slowly that other people could have noticed. Or the opposite - being so fidgety or restless that you have been moving around a lot more than usual: not at all 9. Thoughts that you would be better off or of hurting yourself in some way: not at all Total score: 0 Depression Screening Interpretation: Negative Depression Screening Done: Yes 90907 - PHQ-9 Billing: Yes Source: Developed by Drs. Agustin Cerda, Micki Harris, Adam Adan and colleagues, with an educational basilio from [employer]. Thrive Questionnaire Date Thrive assessed: 06/25/24 What is your living situation today?: I have a steady place to live Within the past 12 months, did the food you bought not last and you didn't have the money to get more?: Never true Within the past 12 months, did you worry whether your food would run out before you got money to buy more?: Never true Do you have trouble paying for medicines?: No Do you have trouble getting transportation to medical appointments?: No Do you have trouble paying your heating and electricity bill?: No Do you have trouble taking care of your child, family member or friend?: No Do you have trouble with day-to-day activities such as bathing, preparing meals, shopping, managing finances, etc.?: No Are you currently unemployed and looking for a job?: No Are you interested in more education?: No Please select the resources that you would like help with: None Currently or been in a relationship where the following occur: No concerns reported THRIVE Score: 0 AUDIT C Alcohol Use Questionnaire (AUDIT-C) 1. How often do you have a drink containing alcohol?: Monthly or less 2. How many drinks containing alcohol do you have on a typical day when you are drinking?: 1 or 2 3. How often do you have six or more drinks on one occasion?: Never Total Score: 1 ERIN-7 AMB Questionnaire ERIN-7 Date ERIN - 7 assessed: 06/25/24 Feeling nervous, anxious, or on edge: 0 = Not at all Not being able to stop or control worryin = Not at all Worrying too much about different things: 0 = Not at all Trouble relaxin = Not at all Being so restless that it is hard to sit still: 0 = Not at all Becoming easily annoyed or irritable: 0 = Not at all Feeling afraid as if something awful might happen: 0 = Not at all Total ERIN-7 score (0-4 normal; 5-9 mild; 10-14 moderate; 15-21 severe): 0 Source: Developed by Drs. Agustin Cerda, Micki Harris, Adam Adan and colleagues, with an educational basilio from [employer]. ERIN-7 Assessment Billing ERIN-7 Assessment Tool: ERIN-7 Assessment 15631 Review of Systems Const Denies headache(s) Eyes Denies loss of vision ENT Denies vertigo, Denies dizziness, Denies headache(s) and Denies sore throat Card Denies chest pain, Denies leg edema and Denies lightheadedness Resp Denies cough, Denies hemoptysis and Denies wheezing GI Denies abdominal pain, Denies melena, Denies constipation, Denies diarrhea and Denies vomiting Denies dysuria, Denies urinary frequency and Denies urinary urgency Musc Denies arthralgias, Denies joint swelling, Denies numbness and Denies tingling Neuro Denies Abnormal speech present, Denies behavioral changes, Denies vertigo, Denies dizziness, Denies headache(s), Denies loss of vision, Denies memory loss, Denies numbness and Denies tingling Psych Denies anxiety, Denies behavioral changes, Denies depression, Denies memory loss and Denies panic attacks Wyatt/Lymph Denies easy bleeding and Denies easy bruising Aller/Immun Denies wheezing Physical exam (Primary Care) Vital Signs: Last Vital Signs Pulse 82 06/25/24 15:13 BP 120/82 06/25/24 15:13 Pulse Ox 93 06/25/24 15:13 Oxygen Delivery Method Room Air 06/25/24 15:13 BMI result Body Mass Index 33.0 Tobacco/Smoking Status: Tobacco use Status Tobacco use date assessed 06/25/24 06/25/24 15:38 Patient Tobacco Use Status Current everyday Tobacco 06/25/24 15:13 Tobacco use type Cigarette 06/25/24 15:13 e-Cigarette/Vaping Use Never Used 06/25/24 15:13 PHQ-9: PHQ-9 Score PHQ-9: Total score 0 06/25/24 15:56 Depression Screening Interpretation: Negative Thrive Assessment: Date of Thrive Assessment Date Thrive assessed 06/25/24 06/25/24 15:22 Currently or been in a relationship where the following occur: No concerns reported Const General: healthy appearing, no acute distress, alert and awake Nutritional Appearance: well nourished Orientation/consciousness: oriented to person, oriented to place and oriented to time HENMT Ears: TM's normal bilaterally General nose exam: Normal nasal mucous membranes and turbinates present Eyes Conjunctivae: conjunctivae normal Sclerae: sclerae normal Pupils: Equal, round and reactive pupils present Neck Neck: Yes no lymphadenopathy and Yes no JVD Thyroid: Thyroid normal Carotids: no bruits Resp Effort & Inspection: normal respiratory effort and not tachypneic Auscultation: no crackles, no rales, no rhonchi and no wheezes Cardio Rate: regular rate Rhythm: regular rhythm Heart sounds: no murmurs and normal S1 and S2 GI Palpation (GI): Soft to palpation, nontender, no hepatomegaly and no splenomegaly Auscultation: normal bowel sounds Skin General skin exam: no rashes or lesions noted and dry skin Neuro General: oriented to person, oriented to place and oriented to time Cranial nerves: Yes Equal, round and reactive pupils present Speech: No Abnormal speech present Gait exam (Neuro): Normal gait present Motor exam (neuro): no tremor noted Extrem Right upper extremity: full ROM Left upper extremity: full ROM Right lower extremity: full ROM; no edema Left lower extremity: full ROM; no edema Psych Mental Status: mental status grossly normal Speech and movement: Normal speech and movement present Affect: normal affect Attitude: cooperative Thought process: Normal thought process present Results AMB Hemoglobin A1c AMB Hemoglobin A1c 5.9 % Last Edit by GARCIA Domínguez on 06/25/24 15:57 Results Reviewed Results Reviewed: Laboratory Last Values Hgb A1c (Clinic) 5.9 % (4.0-6.0) 06/25/24 15:56 Coding Level of Care Code Est Pt Level 4 (48696) Diagnoses Controlled type 2 diabetes mellitus with hyperglycemia, without long-term current use of insulin E11.65 Diabetes mellitus complication status: with hyperglycemia Diabetes mellitus half-way insulin use: without longwall machine operator helper use MDD (major depressive disorder), recurrent episode, moderate F33.1 ERIN (generalized anxiety disorder) F41.1 Tobacco dependence F17.200 SOB (shortness of breath) R06.02 Class 1 obesity E66.811 Additional Codes ERIN-7 Assessment Billing - ERIN-7 Assessment Tool: ERIN-7 Assessment 37444 ([id number]) PHQ-9 - 85950 - PHQ-9 Billing: Yes ([id number]) Assessment & Plan Assessment & Plan (1) Controlled type 2 diabetes mellitus: Code(s): E11.9 - Type 2 diabetes mellitus without complications Category: Medical Qualifiers: Diabetes mellitus complication status: with hyperglycemia Diabetes mellitus half-way insulin use: without half-way use Qualified Code(s): E11.65 - Type 2 diabetes mellitus with hyperglycemia Plan: Patient's type 2 diabetes now well controlled. Today's A1c at 5.8. Continues on Ozempic 1 mg weekly with good effect on glycemic control. Goal A1c is to remain below 7.0 (2) MDD (major depressive disorder), recurrent episode, moderate: Code(s): F33.1 - Major depressive disorder, recurrent, moderate Category: Medical Plan: Patient's PHQ-9 score 0, does have a history of major depressive disorder and continues to see a mental health therapist and a psychiatrist who manages his mental health medication. (3) ERIN (generalized anxiety disorder): Code(s): F41.1 - Generalized anxiety disorder Category: Medical Plan: Patient's ERIN-7 score 0, he feels his anxiety is fairly well controlled with current medication. Continues to see a psychiatrist. (4) Tobacco dependence: Code(s): F17.200 - Nicotine dependence, unspecified, uncomplicated Category: Medical Plan: He does understand he needs to quit smoking. Offered him nicotine replacement though patient is still considering. He has struggled to be able to quit smoking. He is interested in checking out his lungs with a pulmonary function test. (5) SOB (shortness of breath): Code(s): R06.02 - Shortness of breath Category: Medical Plan: As and per HPI he is interested in doing pulmonary function testing to evaluate his lungs. Has been a smoker for many years and Fioricet he has COPD. Will supply patient with an albuterol inhaler to use starting wheezing episodes. (6) Class 1 obesity: Code(s): E66.811 - Obesity, class 1 Category: Medical Plan: Patient does understand his BMI is over 30 will work on being more physically a ctive and adapting to better eating habits to reduce his weight Orders: Orders PFT pulmonary function test 06/25/24 R06.02 - Shortness of breath AMB Hemoglobin A1c 06/25/24 E11.65 - Type 2 diabetes mellitus with hyperglycemia Medications: New albuterol sulfate 90 mcg/actuation 1 inh inhalation QID PRN 8.5 grams 1RF shortness of breath or wheezing 30 days R06.02 - Shortness of breath Patient Instructions: Goal: A1c to remain below 7.0 Barriers: Adherence to physical activity and healthy eating habits
--- OUTSIDE RECORDS SUMMARY | 2024-06-25 17:41 | XMS_ITS | Clinical Summary ---
Author Organization [facility] Address [address] [place] [address] Care Team Providers Care Body Cleaner Name Role Phone Unavailable Primary Care Provider [...] 3 - 19 + 3-dose series) 12/15/1999 Nea-[id number]-63 ( season) 2023 021, 06/30/2020 Imm-Influenza (#1) 2023 12/18/2019, 1 , 01/12/2019, Additional history exists Alcohol and Drug Screen 04/11/2024 Depression Annual Screen 04/11/2024 Imm-DTaP/Tdap/Td (2 - Td or Tdap) 03/30/2027 017 Insurance [facility] Member Subscriber Plan / Payer (Ef fective 2020-Present) Name:[place] Relation to Subscriber:Self Name:[place] Payer ID:[id number] Group ID:[id number] Type:Medicaid Address: [facility] [address] [place] [address]
--- OUTSIDE RECORDS SUMMARY | 2024-06-25 17:41 | XMS_ITS | Clinical Summary ---
Author Organization [facility] it Address [address] [place] [address] Care Team Providers Care Research And Development Chemist Name Role Phone Unavailable Primary Care Provider [...]
== END 2024-06-25 15:59 | disposition home or self-care (01) ==
LOC: HO.HMCH 15:12
PROVIDERS: PCP Physician Assistant; Visit Provider Physician Assistant
DX: E11.65 Type 2 diabetes mellitus with hyperglycemia (principal)

== ENCOUNTER 2024-09-27 14:26 | Outpatient (AMB) | payer OTHER, SELFPAY ==
[2024-09-27 14:37] VITALS: BMI 33.0
--- NOTE | 2024-09-27 14:37 | A.OFFVIS_ITS ---
VS Expanded 09/27/24 14:37 Height 6 ft 1 in Weight 249 lb 12.54 oz BMI 33.0 Intake Visit Reasons: T2DM Allergies atorvastatin Adverse Reaction (Intermediate, Verified 09/28/24 14:31) knee pain [facility] Adverse Reaction (Intermediate, Verified 09/28/24 14:31) shakiness gluten Adverse Reaction (Verified 09/28/24 14:31) Gastrointestinal Upset milk Adverse Reaction (Verified 09/28/24 14:31) Gastrointestinal Upset Nutrition Presentation Details: Pt presents for MNT f/u for T2DM Pt reports doing well, he states he is working on diet modification for cholesterol improvement without meds PA: none additional to that at work challenges: meals during celebrations/graduations etc food frequency fish: not including fruits: 0-1/d ve-4 x/wk dairy: 2-3 /d snacks: granola BS Monitoring Most Recent Diabetes Results: Microalb/Creat Ratio, (<30) 4.6 ug/mg cr 09/29/24 Cholesterol, (<200) 189 mg/dL 09/29/24 HDL Cholesterol, (>40) 30 mg/dL L 09/29/24 Triglycerides, (<150) 390 mg/dL H 09/29/24 Creatinine, (0.5-1.4) 0.82 mg/dL 09/29/24 BUN, (9-16) 16 mg/dL 09/29/24 Sodium, (135-145) 142 mmol/L 09/29/24 Potassium, (3.3-5.1) 4.1 mmol/L 09/29/24 Chloride, (96-108) 105 mmol/L 09/29/24 Carbon Dioxide, (22-29) 28 mmol/L 09/29/24 Calcium, (8.4-10.2) 9.3 mg/dL 09/29/24 AST, (5-37) 49 U/L H 09/29/24 ALT, (0-40) 28 U/L 09/29/24 Total Protein, (6.5-8.0) 6.8 g/dL 09/29/24 Albumin, (3.5-5.0) 4.4 g/dL 09/29/24 [facility] Medical History (Updated 09/28/24 @ 14:56 by Francie Botello PA-C) Axillary hyperhidrosis Anxiety Depression Microscopic hematuria Low libido Tibial plateau fracture, right H/O fracture of tibia Obesity Thoracic disc disease Depression Hidradenitis suppurativa Vitiligo Bronchitis Tibia/fibula fracture Migraines Cervical disc disease with myelopathy Smoker Type 2 diabetes mellitus Opiate dependence Surgical History History of right knee surgery History of removal of cyst History of ankle surgery Family History Father CVD (cardiovascular disease) Brother Heart attack, Onset Age: 50 Sister Breast CA Social History Housing: House Are you a primary child care giver to a significant other at home: No Do you presently have visiting nurse or other home services: No Alcohol intake: never Patient Tobacco Use Status: Current everyday Tobacco user Tobacco use type: Cigarette Cigarette Packs Per Day: 0.5 Cigarettes Per Day: 10 Years Smoked: 25 e-Cigarette/Vaping Use: Never Used Second Hand Smoke Exposure: Yes service: No Current occupational status: employed 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 Cognitive needs: No Hearing needs: No Vision needs: No Assessment & Plan Assessment & Plan (1) Type 2 diabetes mellitus: Code(s): E11.9 - Type 2 diabetes mellitus without complications Category: Medical Qualifiers: Diabetes mellitus terminal make up operator insulin use: with residential use Diabetes mellitus complication status: with kidney complications Diabetes mellitus complication detail: with diabetic microalbuminuria Qualified Code(s): E11.29 - Type 2 diabetes mellitus with other diabetic kidney complication; R80.9 - Proteinuria, unspecified; Z79.4 - emt intermediate (current) use of insulin Plan: Wt: 100 Kg ( 12/2023 ), 124 kg (06/05)! 114kg (11/02 Est kcal needs as per MSJ: 2700 (40% carb, 30% protein/fat) Est fluid needs as per 25-30 ml/d: 3000 Est prot per day as per 1 g/kg bw: 100 Recommend fiber intake : 8-10 g per day and gradually increase to 25-28 g per day for women and 35-38 g for men or as tolerated Recommend sodium intake per day : less than 2000 mg Educated patient on: ( R = reviewed V = verbalizes understanding N/R = needs review N/A = not applicable * Food sources of carbohydrate, adequate serving sizes and its role in various health conditions: R * Differences between complex carbohydrates a simple carbohydrates, role of fiber in diet: R * Lean protein sources of foods: R * Differences between types of fats and role in diet (mono on saturated fat fatty acids, saturated fatty acids, trans fats): R * Food sources of sodium in salt and healthy modifications for heart health in kidney health: R V R/V * Vitamins and minerals: R V N/R * Healthy plate method concept: R * Physical activity: Benefits a precaution: R * Hypoglycemia protocol (rule of 15): R , V * Dietary prevention of Hyperglycemia: R , V * Patient Instructions: include omega 3 fatty acids in meals, fish baked twice a week, replacing red meats/high fat meats engage in physical activity 1 hr twice a week (walking/biking) Coding Level of Care Code Nutr Indiv Subseq (34145) Diagnoses Type 2 diabetes mellitus with diabetic microalbuminuria, with long-term current use of insulin E11.29; R80.9; Z79.4 Diabetes mellitus terminal make up operator insulin use: with terminal make up operator use Diabetes mellitus complication status: with kidney complications Diabetes mellitus complication detail: with diabetic microalbuminuria Time Spent (min) 30
--- OUTSIDE RECORDS SUMMARY | 2024-09-27 15:44 | XMS_ITS | Clinical Summary ---
Author Organization [facility] Address [address] [place] [address] Care Team Providers Care Environmental Issues Instructor Name Role Phone Unavailable Primary Care Provider [...] of 3 - 19+ 3-dose series) 12/15/1999 COVID-19 Vaccine (2023-2 5 season) 2023 Influenza Vaccine (Season Ended) 2024 HIB Vaccines Aged Out No longer eligi [...] age to complete this topic Meningococcal B Vaccine Aged Out No l onger eligible based on patient's age to complete [...]
== END 2024-09-27 16:08 | disposition home or self-care (01) ==
LOC: HO.ENCR 14:27
PROVIDERS: PCP Physician Assistant; Visit Provider Dietitian, Registered
DX: E11.29 Type 2 diabetes mellitus with other diabetic kidney complication (principal); R80.9 Proteinuria, unspecified; Z79.4 Long term (current) use of insulin

== ENCOUNTER → 2024-09-27 14:26 | Outpatient (BNVA) | payer OTHER, SELFPAY | PROVIDERS: PCP Physician Assistant; Visit Provider Dietitian, Registered | DX: E11.29 Type 2 diabetes mellitus with other diabetic kidney complication (principal); R80.9 Proteinuria, unspecified; Z79.4 Long term (current) use of insulin; Z71.3 Dietary counseling and surveillance | CPT/HCPCS: 97803 ==

== ENCOUNTER 2024-09-28 14:24 | Outpatient (AMB) | payer OTHER, SELFPAY ==
[2024-09-28 14:26] VITALS: BP 122/86; PULSE 84; O2SAT 96; BMI 33.4
--- NOTE | 2024-09-28 14:26 | MHC.OFFVIS ---
Vital Signs 09/28/24 14:26 Height 6 ft 1 in Weight 253 lb 1.451 oz BMI 33.4 BP 122/86 Blood Pressure Location Rt brachial Position Sitting Pulse 84 Pulse Source Pulse Oximeter Pulse Oximetry (%) 96 Oxygen Delivery Method Room Air Intake Visit Reasons: T2DM Intake Note: Patient present today for Type 2 Diabetes Mellitus Last Diabetic eye exam: 2019 Last Podiatry Visit: Doesn't have one Random Glucose: 86 mg/dl HgA1C: 6.2% Mixer Operator Hot Metal Required: No Accompanied by: Self / Same As Patient Allergies atorvastatin Adverse Reaction (Intermediate, Verified 09/28/24 14:31) knee pain dulaglutide (From [facility]) Adverse Reaction (Intermediate, Verified 09/28/24 14:31) shakiness gluten Adverse Reaction (Verified 09/28/24 14:31) Gastrointestinal Upset milk Adverse Reaction (Verified 09/28/24 14:31) Gastrointestinal Upset Medication List - Last Reconciled 09/28/24 by Francie Botello PA-C acetaminophen ER 650 mg PO Q12H 30 days albuterol sulfate 90 mcg/actuation 1 inh inhalation QID PRN 30 days blood-glucose sensor (Dexcom G7 Sensor device) use daily As directed for monitor blood glucose clonazepam 1 mg PO TID PRN clotrimazole 1% 1 appl topical BID duloxetine 60 mg PO DAILY [freestyle lite glucometer As directed to test two times per day] [freestyle lite lancets As directed two times per day] [freestyle lite test strips As directed 2 times per day ] gabapentin 300 mg PO DAILY 30 days glucose (Dex4 Glucose) 16 grams (4 x 4 gram) PO Q15M PRN ketorolac 10 mg PO Q6H lidocaine 5% 1 patch topical DAILY naproxen 500 mg PO BID PRN 30 days nicotine (polacrilex) 2 mg buccal Q2H PRN 15 days pen needle, diabetic (BD Ultra-Fine Mini Pen Needle) use daily As directed semaglutide (Ozempic) 1 mg (0.75 mL) subcut QWEEK sildenafil (Viagra) 100 mg PO DAILY 7 days sumatriptan succinate 100 mg PO DIRECTED 30 days tizanidine 4 mg PO Q6H 90 days HPI HPI T2DM: Details: Patient is a 43-year-old male with a significant past medical history of type 2 diabetes, anxiety, depression, hyperlipidemia, ERNESTO on CPAP, presenting today for a follow up regarding his diabetes. He was supposed to do labs prior to today's appointment forgot. States that he was supposed to go Sat but forgot to fast so did not go. Endo: Recently diagnosed type 2 diabetic presenting today for a follow up regarding his diabetes. His last A1c was 6.2. He is tolerating the ozempic 0.5 mg weekly. He is bummed that it went up a little. -metformin he discontinued because he thought it was maybe causing his leg cramps. Trulicity in the past caused him to feel shaky. No fam hx of diabetes. He met with a billposting supervisor and states that this was helpful. CV: Blood pressure is 118/78. His last labs did show elevated cholesterol and I did start him back on atorvastatin but has not started it. Wants to see labs without the cholesterol med. [facility] Medical History (Updated 09/28/24 @ 14:56 by Francie Botello PA-C) Axillary hyperhidrosis Anxiety Depression Microscopic hematuria Low libido Tibial plateau fracture, right H/O fracture of tibia Obesity Thoracic disc disease Depression Hidradenitis suppurativa Vitiligo Bronchitis Tibia/fibula fracture Migraines Cervical disc disease with myelopathy Smoker Type 2 diabetes mellitus Opiate dependence Surgical History History of right knee surgery History of removal of cyst History of ankle surgery Family History Father CVD (cardiovascular disease) Brother Heart attack, Onset Age: 50 Sister Breast CA Social History Housing: House Are you a primary day care aide to a significant other at home: No Do you presently have visiting nurse or other home services: No Alcohol intake: never Patient Tobacco Use Status: Current everyday Tobacco user Tobacco use type: Cigarette Cigarette Packs Per Day: 0.5 Cigarettes Per Day: 10 Years Smoked: 25 e-Cigarette/Vaping Use: Never Used Second Hand Smoke Exposure: Yes service: No Current occupational status: employed 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 Cognitive needs: No Hearing needs: No Vision needs: No Physical Exam Vital Signs: Last Vital Signs Pulse 84 09/28/24 14:26 BP 122/86 09/28/24 14:26 Pulse Ox 96 09/28/24 14:26 Oxygen Delivery Method Room Air 09/28/24 14:26 BMI result Body Mass Index 33.4 Const Orientation/consciousness: patient oriented x3 Neck Neck: Yes no lymphadenopathy Thyroid: Thyroid normal Carotids: no bruits Resp Auscultation: clear to auscultation bilaterally Cardio Rate: regular rate Rhythm: regular rhythm Heart sounds: S1 normal heart sound present and S2 normal heart sound present Peripheral pulses: dorsalis pedis present Neuro General: patient oriented x3, gait normal and no focal motor deficits Extrem Other: Monofilament sensation intact bilaterally. Vibratory sensation intact bilaterally. Skin intact. Right great toenail thickened General: Yes normal to inspection Results AMB Hemoglobin A1c AMB Hemoglobin A1c 6.2 % Last Edit by SARA Beyer on 09/28/24 14:43 Results Reviewed Results Reviewed: Laboratory Last Values Glucose (Clinic) 86 mg/dL (60-115) 09/28/24 14:34 Laboratory Tests 10/15/23 01/06/24 02/07/24 10:30 13:15 14:03 Glucose (Clinic) Hgb A1c (Clinic) 8.9 H Urine Creatinine 186.36 Urine Microalbumin 141.0 Microalb/Creat Ratio 75.6 H Islet Cell Ab Screen NEGATIVE ERIN Antibody <5 05/11/24 06/25/24 06/25/24 13:41 14:44 15:56 Glucose (Clinic) 119 H Hgb A1c (Clinic) 6.3 H 5.9 Urine Creatinine Urine Microalbumin Microalb/Creat Ratio Islet Cell Ab Screen ERIN Antibody Assessment & Plan Assessment & Plan (1) Controlled type 2 diabetes mellitus: Code(s): E11.9 - Type 2 diabetes mellitus without complications Category: Medical Qualifiers: Diabetes mellitus terminal makeup operator insulin use: without fci use Diabetes mellitus complication status: with hyperglycemia Qualified Code(s): E11.65 - Type 2 diabetes mellitus with hyperglycemia Plan: increase ozempic to 2 mg weekly advised to to complete labs f/u in 3 months (2) Dyslipidemia: Code(s): E78.5 - Hyperlipidemia, unspecified Category: Medical Plan: recheck lipids would be open to initiating statin (3) Onychomycosis: Code(s): B35.1 - Tinea unguium Category: Medical Plan: ref to podiatry. Has been using topical without improvement. Orders: Orders AMB Hemoglobin A1c Today E11.65 - Type 2 diabetes mellitus with hyperglycemia, Z13.9 - Encounter for screening, unspecified Referrals Podiatry Referral B35.1 - Tinea unguium, E11.65 - Type 2 diabetes mellitus with hyperglycemia Medications: New semaglutide (Ozempic) 2 mg (0.75 mL) subcut QWEEK 3 mL 5RF Discontinued semaglutide (Ozempic) Discontinued Reason: Doctor's Order 1 mg (0.75 mL) subcut QWEEK 3 mL 5RF Coding Level of Care Code Est Pt Level 4 (70463) Complex EM visit Add On G2211 Diagnoses Controlled type 2 diabetes mellitus with hyperglycemia, without long-term current use of insulin E11.65 Diabetes mellitus fci insulin use: without terminal makeup operator use Diabetes mellitus complication status: with hyperglycemia Dyslipidemia E78.5 Onychomycosis B35.1
--- OUTSIDE RECORDS SUMMARY | 2024-09-28 14:27 | XMS_ITS | Clinical Summary ---
Author Organization [facility] Address [address] [place] [address] Care Team Providers Care Building Supervisor Name Role Phone Unavailable Primary Care Provider [...]
[2024-09-28 14:37] LABS: Glucose, Whole Blood 86 mg/dL (60-115)
== END 2024-09-28 14:59 | disposition home or self-care (01) ==
LOC: HO.ENCR 14:25
PROVIDERS: PCP Physician Assistant; Visit Provider Physician Assistant
DX: E11.65 Type 2 diabetes mellitus with hyperglycemia (principal); E78.5 Hyperlipidemia, unspecified; B35.1 Tinea unguium; Z13.9 Encounter for screening, unspecified

== ENCOUNTER → 2024-09-28 14:24 | Outpatient (BNVA) | payer OTHER, SELFPAY | PROVIDERS: PCP Physician Assistant; Visit Provider Physician Assistant | DX: E11.65 Type 2 diabetes mellitus with hyperglycemia (principal); E78.5 Hyperlipidemia, unspecified; B35.1 Tinea unguium; Z79.85 Long-term (current) use of injectable non-insulin antidiabetic drugs | CPT/HCPCS: 82947; 83036 ==

== ENCOUNTER 2024-09-29 09:42 | Outpatient (REF) | payer OTHER, SELFPAY ==
[2024-09-29 10:47] LABS: Hematocrit 43.4 % (42.0-52.0); Hemoglobin 14.5 g/dl (14.0-18.0); Mean Corpuscular HGB Conc 33.4 g/dl (31.0-36.0); Mean Corpuscular Hemoglobin 29.7 pg (27.0-33.0); Mean Corpuscular Volume 88.8 fL (80.0-98.0); Mean Platelet Volume 9.5 fL (9.4-12.4); Platelet Count 176 X10*3/uL (160-400); Red Blood Count 4.89 X10*6/uL (4.60-5.80); Red Cell Distribution Width 12.2 % (11.0-16.0); White Blood Count 7.4 X10*3/uL (4.8-10.8)
[2024-09-29 10:54] LABS: Estimated Average Glucose 117 mg/dL; Hemoglobin A1C 149.4213 umol/L; Hemoglobin A1c % 5.7 % (<6.0)
[2024-09-29 11:27] LABS: Creatinine Urine 278.62 mg/dL; Microalbum/Creatinine Ratio Ur 4.6 ug/mg cr (<30)
[2024-09-29 11:30] LABS: Alanine Aminotransferase 28 U/L (0-40); Albumin Level 4.4 g/dL (3.5-5.0); Alkaline Phosphatase 74 U/L (39-117); Anion Gap 13 (12-20); Aspartate Amino Transferase 49 U/L (5-37); Bilirubin Total 0.3 mg/dL (0.0-1.0); Blood Urea Nitrogen 16 mg/dL (9-16); Calcium 9.3 mg/dL (8.4-10.2); Carbon Dioxide 28 mmol/L (22-29); Chloride 105 mmol/L (96-108); Cholesterol 189 mg/dL (<200); Estimated Glomerular Filt Rate > 60; Glucose Fasting 95 mg/dL (60-99); HDL Cholesterol 30 mg/dL (>40); LDL Cholesterol Calculated 81 mg/dL (<100); Potassium 4.1 mmol/L (3.3-5.1); Sodium 142 mmol/L (135-145); Total Protein 6.8 g/dL (6.5-8.0); Triglycerides 390 mg/dL (<150)
== END 2024-09-29 09:43 | disposition home or self-care (01) ==
LOC: HO.LAB 09:42
PROVIDERS: PCP Physician Assistant; Visit Provider Physician Assistant
DX: E11.65 Type 2 diabetes mellitus with hyperglycemia (principal); Z79.4 Long term (current) use of insulin; E78.2 Mixed hyperlipidemia
CPT/HCPCS: 36415; 80053; 80061; 82043; 82570; 83036; 85027

== ENCOUNTER 2024-11-07 15:07 | Outpatient (AMB) | payer OTHER, SELFPAY ==
--- NOTE | 2024-11-07 15:19 | MHC.PC.OV ---
Vital Signs 11/07/24 15:20 Height 6 ft 1 in Weight 242 lb 2 oz BMI 31.9 BP 132/68 Blood Pressure Location Lt brachial Position Sitting Pulse 92 Pulse Source Pulse Oximeter Temp 96.9 F Temp Source Temporal Artery Scan Pulse Oximetry (%) 96 Oxygen Delivery Method Room Air Intake Visit Reasons: Annual Exam Intake Note: Patient is here today for a physical. Slot Operations Director Required: No Choreography Director: Not Required per policy Accompanied by: Self / Same As Patient Allergies atorvastatin Adverse Reaction (Intermediate, Verified 11/07/24 15:40) knee pain dulaglutide (From Trulicity) Adverse Reaction (Intermediate, Verified 11/07/24 15:40) shakiness milk Adverse Reaction (Verified 11/07/24 15:40) Gastrointestinal Upset Medication List - Last Reconciled 11/07/24 by Hammad Lopez PA-C acetaminophen ER 650 mg PO Q12H 30 days albuterol sulfate 90 mcg/actuation 1 inh inhalation QID PRN 30 days blood-glucose sensor (Cloudnexa G7 Sensor device) use daily As directed for monitor blood glucose clonazepam 1 mg PO TID PRN clotrimazole 1% 1 appl topical BID duloxetine 60 mg PO DAILY [freestyle lite glucometer As directed to test two times per day] [freestyle lite lancets As directed two times per day] [freestyle lite test strips As directed 2 times per day ] gabapentin 300 mg PO DAILY 30 days ketorolac 10 mg PO Q6H naproxen 500 mg PO BID PRN 30 days pen needle, diabetic (BD Ultra-Fine Mini Pen Needle) use daily As directed semaglutide (Ozempic) 1 mg (0.75 mL) subcut QWEEK sildenafil (Viagra) 100 mg PO DAILY 7 days sumatriptan succinate 100 mg PO DIRECTED 30 days tizanidine 4 mg PO Q6H 90 days Tobacco use date assessed: 11/07/24 Dental Screening Dental Screen Date: 06/25/24 HPI Annual Exam HPI Details Patient is a 43 here today for an annual physical Patient has a past medical history significant for h/o opiate dependence (in remission now off Suboxone), type 2 diabetes , cervical disc disease with myopathy, tobacco use disorder Concern--> The patient reports a history of hyperhidrosis, characterized by excessive sweating in various scenarios, particularly in hot and humid conditions. He has tried deodorants in the past, which have not been effective in controlling the sweating in areas other than the underarms. The patient is considering trying an oral medication for hyperhidrosis, which may cause dry mouth as a side effect. .. Tobacco use disorder:? Patient does understand he needs to quit smoking and would like to wean smoking on his own.? He has had a hard time quitting smoking both cigarettes and vaporizers.. He does have nicotine replacement available to him . Type 2 diabetes: He has establish care with [facility], he was taken off of metformin due to side effects and was started on Ozempic which was up titrated to 1 mg. He has been able to lose weight and A1c is now much improved. . .. HLD: Most recent lipid panel showing elevated total cholesterol and triglycerides. He has tried a atorvastatin though had intolerable bilateral knee pain. He would like to work on dietary modifications. Goal LDL to be below 100 Vaccine: Up-to-date with COVID, tetanus, flu. UTD with pneumonia vaccine [facility] Medical History Axillary hyperhidrosis Anxiety Depression Microscopic hematuria Low libido Tibial plateau fracture, right H/O fracture of tibia Obesity Thoracic disc disease Depression Hidradenitis suppurativa Vitiligo Bronchitis Tibia/fibula fracture Migraines Cervical disc disease with myelopathy Smoker Type 2 diabetes mellitus Opiate dependence Surgical History History of right knee surgery History of removal of cyst History of ankle surgery Family History Father CVD (cardiovascular disease) Brother Heart attack, Onset Age: 50 Sister Breast CA Social History Housing: House Are you a primary interior plant caretaker to a significant other at home: No Do you presently have visiting nurse or other home services: No Alcohol intake: never Patient Tobacco Use Status: Current everyday Tobacco user Tobacco use type: Cigarette Cigarette Packs Per Day: 1 Cigarettes Per Day: 20 Years Smoked: 25 e-Cigarette/Vaping Use: Never Used Second Hand Smoke Exposure: Yes service: No Current occupational status: employed 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 1. Little interest or pleasure in doing things: not at all 2. Feeling down, depressed, or hopeless: not at all 3. Trouble falling or staying asleep, or sleeping too much: not at all 4. Feeling tired or having little energy: not at all 5. Poor appetite or overeating: not at all 6. Feeling bad about yourself - or that you are a failure or have let yourself or your family down: not at all 7. Trouble concentrating on things, such as reading the newspaper or watching television: not at all 8. Moving or speaking so slowly that other people could have noticed. Or the opposite - being so fidgety or restless that you have been moving around a lot more than usual: not at all 9. Thoughts that you would be better off or of hurting yourself in some way: not at all Total score: 0 Depression Screening Interpretation: Negative Depression Screening Done: Yes 81179 - PHQ-9 Billing: Yes Source: Developed by Drs. Agustin Cerda, Micki Harris, Adam Adan and colleagues, with an educational basilio from [employer]. Thrive Questionnaire Date Thrive assessed: 06/25/24 I am a: Patient What is your living situation today?: I have a steady place to live Within the past 12 months, did the food you bought not last and you didn't have the money to get more?: I choose not to answer this question Within the past 12 months, did you worry whether your food would run out before you got money to buy more?: I choose not to answer this question Do you have trouble paying for medicines?: No Do you have trouble getting transportation to medical appointments?: No Do you have trouble paying your heating and electricity bill?: No Do you have trouble taking care of your child, family member or friend?: No Do you have trouble with day-to-day activities such as bathing, preparing meals, shopping, managing finances, etc.?: No Are you currently unemployed and looking for a job?: No Are you interested in more education?: No Please select the resources that you would like help with: None Currently or been in a relationship where the following occur: I choose not to answer THRIVE Score: 0 AUDIT C Alcohol Use Questionnaire (AUDIT-C) 1. How often do you have a drink containing alcohol?: Never Total Score: 0 ERIN-7 AMB Questionnaire ERIN-7 Date ERIN - 7 assessed: 11/07/24 Feeling nervous, anxious, or on edge: 1 = Several days Not being able to stop or control worryin = Several days Worrying too much about different things: 1 = Several days Trouble relaxin = Several days Being so restless that it is hard to sit still: 0 = Not at all Becoming easily annoyed or irritable: 0 = Not at all Feeling afraid as if something awful might happen: 1 = Several days Total ERIN-7 score (0-4 normal; 5-9 mild; 10-14 moderate; 15-21 severe): 5 Source: Developed by Drs. Agustin Cerda, Micki Harris, Adam Adan and colleagues, with an educational basilio from [employer]. ERIN-7 Assessment Billing ERIN-7 Assessment Tool: ERIN-7 Assessment 87353 Review of Systems Const Denies body aches, Denies chills, Denies excessive sweating, Denies fatigue, Denies fever(s) and Denies headache(s) Eyes Denies blurry vision ENT Denies dysphagia, Denies vertigo, Denies dizziness, Denies headache(s), Denies hearing loss and Denies tinnitus Card Denies chest pain, Denies chest pain with activity, Denies syncope, Denies irregular heart rhythm and Denies dyspnea Resp Denies chest congestion, Denies cough, Denies hemoptysis, Denies dyspnea and Denies wheezing GI Denies abdominal pain, Denies melena, Denies hematochezia, Denies coffee ground emesis, Denies dysphagia, Denies diarrhea, Denies nausea and Denies vomiting Denies difficulty urinating, Denies dysuria, Denies urinary frequency, Denies urinary hesitancy and Denies urinary urgency Musc Denies arthralgias, Denies limited range of motion, Denies muscle cramps and Denies muscle weakness Skin/Breast Denies rash and Denies skin ulcer Neuro Denies Abnormal speech present, Denies confusion, Denies vertigo, Denies dizziness, Denies syncope, Denies headache(s), Denies memory loss and Denies seizure-like activity Psych Denies anxiety, Denies confusion, Denies depression, Denies memory loss, Denies panic attacks and Denies paranoia Endo Denies excessive sweating, Denies fatigue, Denies flushing, Denies polydipsia and Denies polyuria Aller/Immun Denies wheezing Physical exam (Primary Care) Vital Signs: Last Vital Signs Temp 96.9 F 11/07/24 15:20 Pulse 92 11/07/24 15:20 BP 132/68 11/07/24 15:20 Pulse Ox 96 11/07/24 15:20 Oxygen Delivery Method Room Air 11/07/24 15:20 BMI result Body Mass Index 31.9 BMI Assessment/Plan discussion: High BMI High, discussed plan: lifestyle, weight reduction, dietary and physical activity Tobacco/Smoking Status: Tobacco use Status Tobacco use date assessed 11/07/24 11/07/24 15:35 Patient Tobacco Use Status Current everyday Tobacco 11/07/24 15:35 Tobacco use type Cigarette 11/07/24 15:35 e-Cigarette/Vaping Use Never Used 11/07/24 15:35 Are you ready to quit: Yes Tobacco cessation counseling provided: Yes Items discussed: Nicotine replacement Relapse Prevention: discussed the importance of a supportive environment, discussed negative mood or depression after quitting, weight gain after smoking is common and discussed dietary, exercise and/or lifestyle changes Number of minutes spent counselin CPT code: 56826 - 4-10 Minutes PHQ-9: PHQ-9 Score PHQ-9: Total score 0 11/07/24 15:35 Depression Screening Interpretation: Negative Thrive Assessment: Date of Thrive Assessment Date Thrive assessed 06/25/24 11/07/24 15:35 Currently or been in a relationship where the following occur: I choose not to answer Const General: cooperative, comfortable, no acute distress, alert and awake; No confusion Orientation/consciousness: oriented to person, oriented to place, patient oriented x3 and No confusion HENMT Head: Yes normocephalic Ears: external ears normal and TM's normal bilaterally Face and sinus: No sinus tenderness Mouth: Normal oral and palatal mucosa present and tongue normal Teeth and gingiva: dentition normal and gingiva normal Throat: Yes posterior oropharynx normal, Yes tonsils normal and Yes uvula midline Eyes Conjunctivae: conjunctivae normal Sclerae: sclerae normal Pupils: Equal, round and reactive pupils present EOM: EOMs intact bilaterally Direct Ophthalmoscopy: No no photophobia Neck Neck: Yes no lymphadenopathy, No tender and Yes no JVD Thyroid: Thyroid normal Carotids: no bruits Chest Chest palpation & inspection: no tenderness Resp Effort & Inspection: normal respiratory effort, no audible wheezes, not labored and no stridor Auscultation: no crackles, no rales, no rhonchi and no wheezes Cardio Jugular venous distension: no JVD Rate: regular rate, not bradycardic and not tachycardic Rhythm: regular rhythm Bruits: no carotid bruits Peripheral pulses: Peripheral pulses 2+ throughout GI Inspection: Yes normal to inspection, No abdominal wall ecchymosis and No visible herniation Palpation (GI): Soft to palpation, nontender, no guarding, not rigid and No hepatosplenomegaly present Auscultation: normoactive bowel sounds General: Yes no CVA tenderness Back/Spine/Pelvis Back: no CVA tenderness and No back tenderness Cervical Spine: cervical ROM normal Thoracic/Lumbar Spine: thoracic and lumbar spine normal to inspection, straight leg raise negative bilaterally, No thoraco-lumbar ROM limited and No lumbar spinal tenderness Skin Lesions: no lesions Rashes: no rashes Wounds: no wounds Neuro General: oriented to person, oriented to place, patient oriented x3, CN's II-XI intact bilaterally and No confusion Cranial nerves: Yes Equal, round and reactive pupils present and Yes Normal accommodation reflex present Cognition (Neuro): normal cognition Speech: No Abnormal speech present Gait exam (Neuro): Normal gait present Motor exam (neuro): 5/5 motor strength present throughout Extrem Right upper extremity: full ROM; no cyanosis Left upper extremity: full ROM; no cyanosis Right lower extremity: no edema Left lower extremity: no edema Psych Appearance: grossly normal Mental Status: mental status grossly normal Affect: normal affect Attitude: cooperative Thought process: Normal thought process present Coding Level of Care Code Est Pt Prev Care 40-64y(81705) Diagnoses Annual physical exam Z00.00 Controlled type 2 diabetes mellitus E11.9 MDD (major depressive disorder), recurrent episode, moderate F33.1 ERIN (generalized anxiety disorder) F41.1 Tobacco dependence F17.200 Class 1 obesity E66.811 Craniofacial hyperhidrosis R61 Hypertriglyceridemia E78.1 Additional Codes Vital Signs *Quality* - CPT code: 00910 - 4-10 Minutes ([id number]) PHQ-9 - 07478 - PHQ-9 Billing: Yes ([id number]) ERIN-7 Assessment Billing - ERIN-7 Assessment Tool: ERIN-7 Assessment 16589 ([id number]) Assessment & Plan Assessment & Plan (1) Annual physical exam: Code(s): Z00.00 - Encounter for general adult medical examination without abnormal findings Category: Medical Plan: as per hpi (2) Controlled type 2 diabetes mellitus: Code(s): E11.9 - Type 2 diabetes mellitus without complications Category: Medical Plan: Patient's type 2 diabetes now well controlled. Today's A1c at 5.7. Continues on Ozempic 1 mg weekly with good effect on glycemic control. Goal A1c is to remain below 7.0 (3) MDD (major depressive disorder), recurrent episode, moderate: Code(s): F33.1 - Major depressive disorder, recurrent, moderate Category: Medical Plan: Patient's PHQ-9 score 0, does have a history of major depressive disorder and continues to see a mental health therapist and a psychiatrist who manages his mental health medication. (4) ERIN (generalized anxiety disorder): Code(s): F41.1 - Generalized anxiety disorder Category: Medical Plan: Patient's ERIN-7 positive for anxiety which has been existing condition for him, he feels his anxiety is fairly well controlled with current medication. Continues to see a psychiatrist. (5) Tobacco dependence: Code(s): F17.200 - Nicotine dependence, unspecified, uncomplicated Category: Medical Plan: He does understand he needs to quit smoking. Offered him nicotine replacement though patient is still considering. He has struggled to be able to quit smoking. He does have nicotine gum available to him (6) Class 1 obesity: Code(s): E66.811 - Obesity, class 1 Category: Medical Plan: Has been able to lose weight since starting GLP 1 therapy. Patient does understand his BMI is over 30 will work on being more physically active and adapting to better eating habits to reduce his weight (7) Craniofacial hyperhidrosis: Code(s): R61 - Generalized hyperhidrosis Category: Medical Plan: The patient is considering starting an oral medication for hyperhidrosis, which may cause dry mouth as a side effect. The plan is to initiate treatment with a 1 mg dose twice daily, with the option to increase to three times daily if needed. (8) Hypertriglyceridemia: Code(s): E78.1 - Pure hyperglyceridemia Category: Medical Plan: The patient has been advised to manage hypertriglyceridemia through dietary modifications and exercise, which have contributed to the improvement in triglyceride levels. Wray-3 supplements were mentioned as a potential aid in managing triglyceride levels. Orders: Referrals Ophthalmology Referral E11.65 - Type 2 diabetes mellitus with hyperglycemia Medications: New glycopyrrolate 1 mg PO BID 60 tabs 1RF secretions 30 days R61 - Generalized hyperhidrosis Refilled acetaminophen ER 650 mg PO Q12H 60 tabs 3RF 30 days M54.14 - Radiculopathy, thoracic region sumatriptan succinate 100 mg PO DIRECTED 9 tabs 3RF 30 days G43.909 - Migraine, unspecified, not intractable, without status migrainosus Discontinued ketorolac maximum total duration of 5 days Discontinued Reason: Doctor's Order 10 mg PO Q6H 10 tabs 0RF M54.50 - Low back pain, unspecified
[2024-11-07 15:20] VITALS: BP 132/68; PULSE 92; TEMP 36.1; O2SAT 96; BMI 31.9
--- OUTSIDE RECORDS SUMMARY | 2024-11-07 15:51 | XMS_ITS | Clinical Summary ---
Author Organization [address] [place] [address] Address [address] [place] [address] Phone Care Team Providers Care Hide Shaker Name Role Phone Hammad Lopez Primary Care Provider Social History Tobacco Use Types Packs/Day Years Used Date Smoking Tobacco: Never Assessed Sex and Gender Information Value Date Recorded Sex Assigned at Not on file Legal Sex Male 5:32 AM EST Gender Identity Not on file Sexual Orientation Not on file Plan of Treatment Upcoming Encounters Date Type Department Care Team ([facility] st Contact Info) Description 12/26/2024 1:00 PM EDT Consult Orthopedic Surgery [place] [id number] [phone] Chace Khan, DPAngelia [address] [address] Health Maintenance Due Date Last Done Comments Diabetes: Annual GFR (Glomer ular Filtration Rate) 1980 Diabetes: Annual Foot Exam 1990 Diabetes: Annual Retina Eye Exam 1990 DTaP,Tdap,and Td Vaccines (1 - Tdap) 12/15/1999 Hepatitis B Vaccines (1 of 3 - 19+ 3-dose series) 12/15/1999 Pneumococcal Vaccine: Pediat rics (0 to 5 Years) and At-Risk Patients (6 to 49 Years) (1 of 2 - PCV) 12/15/1999 COVID-19 Vaccine ( - 2023-2 5 season) 2023 Depression Screening 04/11/2024 Cholesterol Screening (Lipid Panel) 10/03/2024 Diabetes: Annual Urine Albumin-Creatinine Ratio (uACR) 10/03/2024 Diabetes: Blood Sugar Contro l Test (HGBA1C) 10/03/2024 HIV Screening 10/03/2024 Hepatitis C Screening 10/03/2024 Social Influencers of Health Screening 10/03/2024 Influenza Vaccine (#1) 2024 HIB Vaccines Aged Out No longer [...] on patient's age to complete this topic Insurance Care Teams Hide Shaker Relationship Specialty Start Date End Date Hammad Lopez PA [address] [place] [phone] PCP - General Physician Inspection And Testing Supervisor 10/02/24
--- OUTSIDE RECORDS SUMMARY | 2024-11-07 15:51 | XMS_ITS | Clinical Summary ---
Author Organization [facility] Address [address] [place] [address] Care Team Providers Care Head Chopper Name Role Phone Unavailable Primary Care Provider Unavailabl e Source Comments PLEASE NOTE, if this patient is a minor, it may be UNLAWFUL to discuss sensitive information that is contained in these records (such as FAMILY PLANNING, MENTAL HEALTH or SUBSTANCE ABUSE) with the minor patient's parent or other person without the patient's specific authorization.[facility] Immunizations Immunization Administration Dates Next Due Moderna COVID-19 Vaccine, [...] Health Maintenance Due Date Last Done Comments Anxiety Screening 1980 Diabetes Screening 1980 Hepatitis C Screening 1980 Lipid Screening 1980 Tobacco Screening 1980 HIV Screening 12/15/1995 Hypertension Screening (#1) 1998 Imm-Hepatitis B (1 of 3 - 19 + 3-dose series) 12/15/1999 Amt-FBUHC-36 (3 - 2024-25 season) 2023 021, 06/30/2020 Imm-Influenza (#1) 2023 12/18/2019, 1 , 01/12/2019, Additional history exists Alcohol and Drug Screen 04/11/2024 Depression Annual Screen 04/11/2024 Imm-DTaP/Tdap/Td (2 - Td or Tdap) 03/30/2027 017 Insurance [facility] Member Subscriber Plan / Payer (Ef fective 2020-Present) Name:[place] Relation to Subscriber:Self Name:[place] Payer ID:[id number] Group ID:[id number] Type:Medicaid Address: [facility] [address] [place] [address]
== END 2024-11-07 16:03 | disposition home or self-care (01) ==
LOC: HO.HMCH 15:08
PROVIDERS: PCP Physician Assistant; Visit Provider Physician Assistant
DX: Z00.00 Encounter for general adult medical examination without abnormal findings (principal); E11.9 Type 2 diabetes mellitus without complications; F33.1 Major depressive disorder, recurrent, moderate; F41.1 Generalized anxiety disorder; F17.210 Nicotine dependence, cigarettes, uncomplicated; E66.811 Obesity, class 1; R61 Generalized hyperhidrosis; E78.1 Pure hyperglyceridemia

== ENCOUNTER → 2024-11-07 15:07 | Outpatient (BNVA) | payer OTHER, SELFPAY | PROVIDERS: PCP Physician Assistant; Visit Provider Physician Assistant | DX: Z00.00 Encounter for general adult medical examination without abnormal findings (principal); E11.9 Type 2 diabetes mellitus without complications; F33.1 Major depressive disorder, recurrent, moderate; F41.1 Generalized anxiety disorder; F17.210 Nicotine dependence, cigarettes, uncomplicated; E66.811 Obesity, class 1; R61 Generalized hyperhidrosis; E78.1 Pure hyperglyceridemia; M54.14 Radiculopathy, thoracic region; G43.909 Migraine, unspecified, not intractable, without status migrainosus; M54.50 Low back pain, unspecified; Z68.31 Body mass index [BMI] 31.0-31.9, adult | CPT/HCPCS: 96127 ==

== ENCOUNTER 2024-11-20 13:22 | Outpatient (AMB) | payer OTHER, SELFPAY ==
--- NOTE | 2024-11-20 13:39 | MHC.AMNUTRGE ---
VS Expanded 11/20/24 13:41 Height 6 ft 1 in Weight 241 lb 13.553 oz BMI 31.9 Intake Visit Reasons: Type 2 dm Allergies atorvastatin Adverse Reaction (Intermediate, Verified 11/07/24 15:40) knee pain [facility]ide ([facility] Adverse Reaction (Intermediate, Verified 11/07/24 15:40) shakiness milk Adverse Reaction (Verified 11/07/24 15:40) Gastrointestinal Upset Nutrition Presentation Details: Pt presents for MNt for T2DM Pt reports doing well, working on watching food portion sizes , choosing fiber rich foods and including omega 3 sources of foods (fish twice/wk , nuts Choosing fiber rich food, has questions regardig fiber rich foods A1c 5.7% in September 2024 BS Monitoring Most Recent Diabetes Results: Microalb/Creat Ratio, (<30) 4.6 ug/mg cr 09/29/24 Cholesterol, (<200) 189 mg/dL 09/29/24 HDL Cholesterol, (>40) 30 mg/dL L 09/29/24 Triglycerides, (<150) 390 mg/dL H 09/29/24 Creatinine, (0.5-1.4) 0.82 mg/dL 09/29/24 BUN, (9-16) 16 mg/dL 09/29/24 Sodium, (135-145) 142 mmol/L 09/29/24 Potassium, (3.3-5.1) 4.1 mmol/L 09/29/24 Chloride, (96-108) 105 mmol/L 09/29/24 Carbon Dioxide, (22-29) 28 mmol/L 09/29/24 Calcium, (8.4-10.2) 9.3 mg/dL 09/29/24 AST, (5-37) 49 U/L H 09/29/24 ALT, (0-40) 28 U/L 09/29/24 Total Protein, (6.5-8.0) 6.8 g/dL 09/29/24 Albumin, (3.5-5.0) 4.4 g/dL 09/29/24 [facility] Medical History Axillary hyperhidrosis Anxiety Depression Microscopic hematuria Low libido Tibial plateau fracture, right H/O fracture of tibia Obesity Thoracic disc disease Depression Hidradenitis suppurativa Vitiligo Bronchitis Tibia/fibula fracture Migraines Cervical disc disease with myelopathy Smoker Type 2 diabetes mellitus Opiate dependence Surgical History History of right knee surgery History of removal of cyst History of ankle surgery Family History Father CVD (cardiovascular disease) Brother Heart attack, Onset Age: 50 Sister Breast CA Social History Housing: House Are you a primary caregiver services home to a significant other at home: No Do you presently have visiting nurse or other home services: No Alcohol intake: never Patient Tobacco Use Status: Current everyday Tobacco user Tobacco use type: Cigarette Cigarette Packs Per Day: 1 Cigarettes Per Day: 20 Years Smoked: 25 e-Cigarette/Vaping Use: Never Used Second Hand Smoke Exposure: Yes service: No Current occupational status: employed 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 Cognitive needs: No Hearing needs: No Vision needs: No Assessment & Plan Assessment & Plan (1) Type 2 diabetes mellitus: Code(s): E11.9 - Type 2 diabetes mellitus without complications Category: Medical Qualifiers: Diabetes mellitus long chain quiller tender insulin use: with long chain quiller tender use Diabetes mellitus complication status: with kidney complications Diabetes mellitus complication detail: with diabetic microalbuminuria Qualified Code(s): E11.29 - Type 2 diabetes mellitus with other diabetic kidney complication; R80.9 - Proteinuria, unspecified; Z79.4 - dedicated intermodal truck driver (current) use of insulin Plan: A1c at 5.7% in September 2024, diet controlled Wt: 100 Kg ( 12/2023 ), 124 kg (06/05)! 114kg (11/02 ), 110 kg (12/03) Est kcal needs as per MSJ: 2700 (40% carb, 30% protein/fat) Est fluid needs as per 25-30 ml/d: 3300 Est prot per day as per 1 g/kg bw: 100 Recommend fiber intake : 8-10 g per day and gradually increase to 25-28 g per day for women and 35-38 g for men or as tolerated Recommend sodium intake per day : less than 2000 mg Educated patient on: ( R = reviewed V = verbalizes understanding N/R = needs review N/A = not applicable Food sources of carbohydrate, adequate serving sizes and its role in various health conditions: R Differences between complex carbohydrates a simple carbohydrates, role of fiber in diet: R Lean protein sources of foods: R Differences between types of fats and role in diet (mono on saturated fat fatty acids, saturated fatty acids, trans fats): R Food sources of sodium in salt and healthy modifications for heart health in kidney health: R V R/V Vitamins and minerals: R V N/R Healthy plate method concept: R Physical activity: Benefits a precaution: R Hypoglycemia protocol (rule of 15): R , V Dietary prevention of Hyperglycemia: R , V Patient Instructions: Continue working on following healthy plate method in most meals Reducing sugar intake Have fish at least twice a week , choosing omega 3 source of foods Coding Level of Care Code Nutr Indiv Subseq (71064) Diagnoses Type 2 diabetes mellitus with diabetic microalbuminuria, with long-term current use of insulin E11.29; R80.9; Z79.4 Diabetes mellitus mcfp insulin use: with long chain quiller tender use Diabetes mellitus complication status: with kidney complications Diabetes mellitus complication detail: with diabetic microalbuminuria Time Spent (min) 30
[2024-11-20 13:41] VITALS: BMI 31.9
--- OUTSIDE RECORDS SUMMARY | 2024-11-20 14:11 | XMS_ITS | Clinical Summary ---
Author Organization [address] [place] [address] Address [address] [place] [address] Phone Care Team Providers Care Cookie Padder Name Role Phone Hammad Lopez Primary Care Provider Social History Tobacco Use Types Packs/Day Years Used Date Smoking Tobacco: Never Assessed Sex and Gender Information Value Date Recorded Sex Assigned at Not on file Legal Sex Male 5:32 AM EST Gender Identity Not on file Sexual Orientation Not on file Plan of Treatment Upcoming Encounters Date Type Department Care Team ([facility] st Contact Info) Description 12/26/2024 1:00 PM EDT Consult Orthopedic Surgery [place] [address] [phone] Chace Khan, DPAngelia [address] [address] Health Maintenance Due Date Last Done Comments [...] to complete this topic Insurance Care Teams Cookie Padder Relationship Specialty Start Date End Date Hammad Lopez PA [address] [place] [id number] PCP - General Physician Informatics Developer 10/02/24
--- OUTSIDE RECORDS SUMMARY | 2024-11-20 14:11 | XMS_ITS | Patient Health Record ---
Author Organization [facility] Address [address] [place] [address] Care Team Providers Care Mechanical Sound Technician Name Role Phone Hammad Lopez Primary Care Provider Unavailab Agustin George Unavailable [phone] Reason For Referral No Information Medications Medication SIG (Take, Route, Frequency, Duration) Notes Start Date End Date Status tiZANidine HCl Activ e SUMAtriptan Active Naproxen prn Active Suboxone 2-0.5 MG 1 film under the ton katiana and allow to dissolve Sublingual Once a day started 05/2017 Active Xanax Active Prozac Active Social History Tobacco Use: Social History Observation Description Date Details (start date - stop date) Current Smoker NA - NA Tobacco Use/Smoking Question Answer Notes Patient is a current smoker How often do you smoke cigarettes? every day How many cigarettes a day do you smoke? 11-20 Alcohol Screen Question Answer Notes Did you have a drink containing alcohol in the p ast year? No Points 0 Interpretation Negative Section Notes: Smoker 1 ppd; no sig alcohol Problems Problem Type SNOMED Code ICD Code Onset Dates Problem Status W/U Status Risk Notes Problem 361767711 Abnormal celiac antibody panel (R89.4) Active confirmed Problem 51545964 Diarrhea, unspecified type (R19.7) Active confirmed Problem 523323009 Change in bowel function (R19.8) Active confirmed Plan Of Treatment Future Test Test Name Order Date UPPER GI ENDOSCOPY 07/12/2017 COLONOSCOPY 07/12/2017 Insurance Providers Payer Name Payer Address Payer Phone Subscriber Number Group Number Insured Name Patient Relationship to Insured Coverage Start Date Coverage End Date [facility] [address] [address] [place], [place] [id number] RENAN SANCHEZ Self - patient is the insured MEDICAID OF [facility] [address] [place] [address] [id number] RENAN SANCHEZ Self - patient is the insured Medical (General) History Medical History History ICD Code Denies [place],DM,CVA,Lung disease,renal dise ase Depression and anxiety Migraines Substance abuse with pills DVT's in both LE's with a PE after 04/2016 surgery--stopped the Coumadin in 09/2016 [facility] Surgical History Surgery Date(Month/Year) Tibia-Fibula Plateau Fracture 04/24/16 Tonsillectomy
--- OUTSIDE RECORDS SUMMARY | 2024-11-20 14:11 | XMS_ITS | Clinical Summary ---
Author Organization [facility] Address [address] [place] [address] Care Team Providers Care Head Chopper Name [...] 3 - 19 + 3-dose series) 12/15/1999 [id number]-31 (3 - 2024-25 season) 2023 021, 06/30/2020 Alcohol and Drug Screen 04/11/2024 Depression Annual Screen 04/11/2024 Imm-Influenza (#1) 2024 12/18/2019, 1 , 01/12/2019, Additional history exists Imm-DTaP/Tdap/Td (2 - Td or Tdap) 03/30/2027 017 Insurance [facility] PLAN Member Subscriber Plan / Payer (Ef fective 2020-Present) Name:[place] Relation to Subscriber:Self Name:[place] Payer ID:[id number] Group ID:[id number] Type:Medicaid Address: [facility] [address] [place] [address]
== END 2024-11-20 14:02 | disposition home or self-care (01) ==
LOC: HO.ENCR 13:23
PROVIDERS: PCP Physician Assistant; Visit Provider Dietitian, Registered
DX: E11.29 Type 2 diabetes mellitus with other diabetic kidney complication (principal); R80.9 Proteinuria, unspecified; Z79.4 Long term (current) use of insulin

== ENCOUNTER → 2024-11-20 13:22 | Outpatient (BNVA) | payer OTHER, SELFPAY | PROVIDERS: PCP Physician Assistant; Visit Provider Dietitian, Registered | DX: E11.29 Type 2 diabetes mellitus with other diabetic kidney complication (principal); R80.9 Proteinuria, unspecified; Z79.4 Long term (current) use of insulin | CPT/HCPCS: 97803 ==

== ENCOUNTER → 2024-11-26 09:43 | Outpatient (BNVA) | payer SELFPAY | PROVIDERS: Visit Provider Internal Medicine | DX: Z02.79 Encounter for issue of other medical certificate (principal) ==

== ENCOUNTER 2025-01-18 12:56 | Outpatient (AMB) | payer OTHER, SELFPAY ==
--- NOTE | 2025-01-18 13:01 | MHC.OFFVIS ---
Vital Signs 01/18/25 13:02 Height 6 ft 1 in Weight 252 lb 13.923 oz BMI 33.4 BP 120/72 Blood Pressure Location Lt brachial Position Sitting Pulse 76 Pulse Source Pulse Oximeter Pulse Oximetry (%) 98 Oxygen Delivery Method Room Air Intake Visit Reasons: Type 2 dm Intake Note: Patient present today for Type 2 Diabetes Mellitus Last Diabetic eye exam:?overdue Last Podiatry Visit:?last month Random Glucose:143? mg/dl HgA1C: 5.7 Assistant Professor Of English Required: No Accompanied by: Self / Same As Patient Allergies atorvastatin Adverse Reaction (Intermediate, Verified 01/18/25 13:04) knee pain dulaglutide (From [facility]) Adverse Reaction (Intermediate, Verified 01/18/25 13:04) shakiness milk Adverse Reaction (Verified 01/18/25 13:04) Gastrointestinal Upset Medication List - Last Reconciled 01/18/25 by Francie Botello PA-C acetaminophen ER 650 mg PO Q12H 30 days albuterol sulfate 90 mcg/actuation 1 inh inhalation QID PRN 30 days blood-glucose sensor ([employer] G7 Sensor device) use daily As directed for monitor blood glucose clonazepam 1 mg PO TID PRN clotrimazole 1% 1 appl topical BID duloxetine 60 mg PO DAILY [freestyle lite glucometer As directed to test two times per day] [freestyle lite lancets As directed two times per day] [freestyle lite test strips As directed 2 times per day ] gabapentin 300 mg PO DAILY 30 days glycopyrrolate 1 mg PO BID 30 days naproxen 500 mg PO BID PRN 30 days pen needle, diabetic (BD Ultra-Fine Mini Pen Needle) use daily As directed semaglutide (Ozempic) 1 mg (0.75 mL) subcut QWEEK sildenafil (Viagra) 100 mg PO DAILY 7 days sumatriptan succinate 100 mg PO DIRECTED 30 days tizanidine 4 mg PO Q6H 90 days Do you need a note to return to daycare/school/sports/work: Yes HPI HPI Type 2 dm: Details: Patient is a [id number] male with a significant past medical history of type 2 diabetes, anxiety, depression, hyperlipidemia, ERNESTO on CPAP, presenting today for a follow up regarding his diabetes. He was supposed to do labs prior to today's appointment forgot. States that he was supposed to go Sat but forgot to fast so did not go. Endo: Recently diagnosed type 2 diabetic presenting today for a follow up regarding his diabetes. His last A1c was 5.7. He is tolerating the ozempic 1mg weekly. -metformin he discontinued because he thought it was maybe causing his leg cramps. Trulicity in the past caused him to feel shaky. No fam hx of diabetes. He met with a coconut boiler and states that this was helpful. Saw podiatry and told great feet overdue eye exam, phone number given today. CV: Blood pressure is 118/78. His last labs did show elevated cholesterol and I did start him back on atorvastatin but has not started it. Wants to see labs without the cholesterol med. [facility] Medical History Axillary hyperhidrosis Anxiety Depression Microscopic hematuria Low libido Tibial plateau fracture, right H/O fracture of tibia Obesity Thoracic disc disease Depression Hidradenitis suppurativa Vitiligo Bronchitis Tibia/fibula fracture Migraines Cervical disc disease with myelopathy Smoker Type 2 diabetes mellitus Opiate dependence Surgical History History of right knee surgery History of removal of cyst History of ankle surgery Family History Father CVD (cardiovascular disease) Brother Heart attack, Onset Age: 50 Sister Breast CA Social History Housing: House Are you a primary healthcare recruiter to a significant other at home: No Do you presently have visiting nurse or other home services: No Alcohol intake: never Patient Tobacco Use Status: Current everyday Tobacco user Tobacco use type: Cigarette Cigarette Packs Per Day: 1 Cigarettes Per Day: 20 Years Smoked: 25 e-Cigarette/Vaping Use: Never Used Second Hand Smoke Exposure: Yes service: No Current occupational status: employed 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 Cognitive needs: No Hearing needs: No Vision needs: No Physical Exam Vital Signs: Last Vital Signs Pulse 76 01/18/25 13:02 BP 120/72 01/18/25 13:02 Pulse Ox 98 01/18/25 13:02 Oxygen Delivery Method Room Air 01/18/25 13:02 BMI result Body Mass Index 33.4 Const Orientation/consciousness: patient oriented x3 Neck Neck: Yes no lymphadenopathy Thyroid: Thyroid normal Carotids: no bruits Resp Auscultation: clear to auscultation bilaterally Cardio Rate: regular rate Rhythm: regular rhythm Heart sounds: S1 normal heart sound present and S2 normal heart sound present Neuro General: patient oriented x3, gait normal and no focal motor deficits Extrem General: Yes normal to inspection Results AMB Hemoglobin A1c AMB Hemoglobin A1c 5.7 % Last Edit by Drea Shannon CMA on 01/18/25 13:25 Results Reviewed Results Reviewed: Laboratory Last Values Glucose (Clinic) 143 mg/dL (60-115) H 01/18/25 13:12 Laboratory Tests 01/06/24 05/11/24 06/25/24 13:15 13:41 15:56 Creatinine Estimated GFR Hgb A1c (Clinic) 6.3 H 5.9 Hemoglobin A1c % Triglycerides Cholesterol LDL Cholesterol, Calc HDL Cholesterol Islet Cell Ab Screen NEGATIVE ERIN Antibody <5 09/28/24 09/29/24 14:36 10:05 Creatinine 0.82 Estimated GFR > 60 Hgb A1c (Clinic) 6.2 H Hemoglobin A1c % 5.7 Triglycerides 390 H Cholesterol 189 LDL Cholesterol, Calc 81 HDL Cholesterol 30 L Islet Cell Ab Screen ERIN Antibody Assessment & Plan Assessment & Plan (1) Controlled type 2 diabetes mellitus: Code(s): E11.9 - Type 2 diabetes mellitus without complications Category: Medical Plan: continue ozempic to 1 mg weekly advised to to complete labs f/u in 3-4 months Orders: Orders AMB Hemoglobin A1c Today E11.65 - Type 2 diabetes mellitus with hyperglycemia Medications: Refilled semaglutide (Ozempic) 1 mg (0.75 mL) subcut QWEEK 3 mL 4RF Coding Level of Care Code Complex EM visit Add On G2211 Diagnoses Controlled type 2 diabetes mellitus E11.9
[2025-01-18 13:02] VITALS: BP 120/72; PULSE 76; O2SAT 98; BMI 33.4
[2025-01-18 13:16] LABS: Glucose, Whole Blood 143 mg/dL (60-115)
== END 2025-01-18 13:26 | disposition home or self-care (01) ==
LOC: HO.ENCR 12:57
PROVIDERS: PCP Physician Assistant; Visit Provider Physician Assistant
DX: E11.9 Type 2 diabetes mellitus without complications (principal); E11.65 Type 2 diabetes mellitus with hyperglycemia

== ENCOUNTER → 2025-01-18 12:56 | Outpatient (BNVA) | payer OTHER, SELFPAY | PROVIDERS: PCP Physician Assistant; Visit Provider Physician Assistant | DX: E11.9 Type 2 diabetes mellitus without complications (principal); E78.5 Hyperlipidemia, unspecified; Z79.85 Long-term (current) use of injectable non-insulin antidiabetic drugs | CPT/HCPCS: 82947; 83036 ==

== ENCOUNTER 2025-04-08 14:04 | Outpatient (AMB) | payer OTHER, SELFPAY ==
--- NOTE | 2025-04-08 14:06 | A.OFFVIS_ITS ---
Vital Signs 04/08/25 14:07 Height 6 ft 1 in Weight 256 lb 9.889 oz BMI 33.9 BP 116/74 Blood Pressure Location Lt brachial Position Sitting Pulse 75 Pulse Source Pulse Oximeter Pulse Oximetry (%) 95 Oxygen Delivery Method Room Air Intake Visit Reasons: T2DM Intake Note: Patient present today for Type 2 Diabetes Mellitus Last Diabetic eye exam: It's been over 5 years Last Podiatry Visit: 12/2024 Random Glucose: 110 mg/dl HgA1C: 5.7% 01/18/25 Residential Treatment Staff Required: No Accompanied by: Self / Same As Patient Allergies atorvastatin Adverse Reaction (Intermediate, Verified 04/08/25 14:13) knee pain dulaglutide (From [facility]) Adverse Reaction (Intermediate, Verified 04/08/25 14:13) shakiness milk Adverse Reaction (Verified 04/08/25 14:13) Gastrointestinal Upset Medication List - Last Reconciled 04/08/25 by Francie Botello PA-C acetaminophen ER 650 mg PO Q12H 30 days albuterol sulfate 90 mcg/actuation 1 inh inhalation QID PRN 30 days blood-glucose sensor ([employer] G7 Sensor device) use daily As directed for monitor blood glucose clonazepam 1 mg PO TID PRN clotrimazole 1% 1 appl topical BID duloxetine 60 mg PO DAILY [freestyle lite glucometer As directed to test two times per day] [freestyle lite lancets As directed two times per day] [freestyle lite test strips As directed 2 times per day ] gabapentin 300 mg PO DAILY 30 days glycopyrrolate 1 mg PO BID 30 days ketorolac 10 mg PO Q8H PRN 5 days naproxen 500 mg PO BID PRN 30 days pen needle, diabetic (BD Ultra-Fine Mini Pen Needle) use daily As directed semaglutide (Ozempic) 0.5 mg (0.736 mL) subcut QWEEK sildenafil (Viagra) 100 mg PO DAILY 7 days sumatriptan succinate 100 mg PO DIRECTED 30 days tizanidine 4 mg PO Q6H 90 days HPI HPI T2DM: Details: Patient is a 44-year-old male with a significant past medical history of type 2 diabetes, anxiety, depression, hyperlipidemia, ERNESTO on CPAP, presenting today for a follow up regarding his diabetes. Endo: His last A1c was 5.7. He was tolerating the ozempic 1mg weekly. He states that he is now is getting lower blood sugars around 70-90. He states that it happens a lot of times in the late morning or when he is physically active. He will feel shaky with it. It gets better when he eats something. -metformin he discontinued because he thought it was maybe causing his leg cramps. Trulicity in the past caused him to feel shaky. No fam hx of diabetes. He met with a manager core and states that this was helpful. CV: Blood pressure is 116/74. [facility] Medical History Axillary hyperhidrosis Anxiety Depression Microscopic hematuria Low libido Tibial plateau fracture, right H/O fracture of tibia Obesity Thoracic disc disease Depression Hidradenitis suppurativa Vitiligo Bronchitis Tibia/fibula fracture Migraines Cervical disc disease with myelopathy Smoker Type 2 diabetes mellitus Opiate dependence Surgical History History of right knee surgery History of removal of cyst History of ankle surgery Family History Father CVD (cardiovascular disease) Brother Heart attack, Onset Age: 50 Sister Breast CA Social History Housing: House Are you a primary rn primary care to a significant other at home: No Do you presently have visiting nurse or other home services: No Alcohol intake: never Patient Tobacco Use Status: Current everyday Tobacco user Tobacco use type: Cigarette Cigarette Packs Per Day: 1 Cigarettes Per Day: 20 Years Smoked: 25 e-Cigarette/Vaping Use: Never Used Second Hand Smoke Exposure: Yes service: No Current occupational status: employed 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 Cognitive needs: No Hearing needs: No Vision needs: No Physical Exam Const Orientation/consciousness: patient oriented x3 HEENT Ears: hearing grossly normal bilaterally Neck Thyroid: Thyroid normal Lymphatic: no lymphadenopathy noted Resp Auscultation: clear to auscultation bilaterally Cardio Rate: regular rate Rhythm: regular rhythm Heart sounds: S1 normal heart sound present and S2 normal heart sound present Skin General skin exam: no rashes or lesions noted Neuro General: patient oriented x3, gait normal and no focal motor deficits Results Reviewed Results Reviewed: Laboratory Tests 09/29/24 01/18/25 10:05 13:17 Creatinine 0.82 Estimated GFR > 60 Estimat Average Glucose 117 Hgb A1c (Clinic) 5.7 Assessment & Plan Assessment & Plan (1) Controlled type 2 diabetes mellitus: Code(s): E11.9 - Type 2 diabetes mellitus without complications Category: Medical Plan: lower ozempic 0.5 mg weekly advised to to complete labs f/u in 3-4 weeks (2) Hypoglycemia: Code(s): E16.2 - Hypoglycemia, unspecified Category: Medical Plan: Discussed the importance of nutrition and eating prior to exercise. We will follow up pending labs. I have also lowered Ozempic. CGM provided today Orders: Orders Insulin Today E11.65 - Type 2 diabetes mellitus with hyperglycemia, E16.2 - Hypoglycemia, unspecified Basic Metabolic Panel Today E11.65 - Type 2 diabetes mellitus with hyperglycemia, E16.2 - Hypoglycemia, unspecified Hemoglobin A1c Today E11.65 - Type 2 diabetes mellitus with hyperglycemia, E16.2 - Hypoglycemia, unspecified C Peptide Today E11.65 - Type 2 diabetes mellitus with hyperglycemia, E16.2 - Hypoglycemia, unspecified Coding Level of Care Code Est Pt Level 4 (59374) Add On Problem Visit Only Diagnoses Controlled type 2 diabetes mellitus E11.9 Hypoglycemia E16.2
[2025-04-08 14:07] VITALS: BP 116/74; PULSE 75; O2SAT 95; BMI 33.9
[2025-04-08 14:19] LABS: Glucose, Whole Blood 110 mg/dL (60-115)
--- OUTSIDE RECORDS SUMMARY | 2025-04-08 16:24 | XMS_ITS | Patient Health Record ---
Author Organization [facility] Address [address] [place] [address] Care Team Providers Care Electrician Second Name Role Phone John Hammad Primary Care Provider Unavailab Agustin George Unavailable [phone] Reason For Referral No Information Medications Medication SIG (Take, Route, Frequency, Duration) Notes Start Date End Date Status tiZANidine HCl Activ e SUMAtriptan Active Naproxen prn Active Suboxone 2-0.5 MG Film 1 film under the tongue and allow to dissolve Sublingual Once a day started 05/2017 Active Xanax Active Prozac Active Social History Tobacco Use: Social History Observation Description Date Details (start date - stop date) Current Smoker NA - NA Social History Drugs/Alcohol: Social Info Question Answer Notes Alcohol Screen Did you have a drink containing alcohol in the past year? No Points 0 Interpretation Negative Tobacco Use: Social Info Question Answer Notes Tobacco Use/Smoking Patient is a current smoker How often do you smoke cigarettes? every day How many cigarettes a day do you smoke? 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 Caffeine: 1-2 cups per day Section Notes: Smoker 1 ppd; no sig alcohol Problems Problem Type SNOMED Code ICD Code Onset Dates Problem Status W/U Status Risk Notes Problem Abnormal celiac antibody panel (R89.4) Active confirmed Problem Diarrhea (92714965) Diarrhea, unspecified type (R19.7) Active confirmed Problem Altered bowel function (30574877) Change in bowel function (R19.8) Active confirmed Plan Of Treatment Future Test Test Name Order Date UPPER GI ENDOSCOPY 07/12/2017 COLONOSCOPY 07/12/2017 Insurance Providers Payer Name Payer Address Payer Phone Subscriber Number Group Number Insured Name Patient Relationship to Insured Coverage Start Date Coverage End Date [facility] [address] [address] [place], [place] [id number] [phone] [id number] RENAN SANCHEZ Self - patient is the insured MEDICAID OF [employer] [address] [place] [address] [phone] [id number] RENAN SANCHEZ Self - patient is the insured Medical (General) History Medical History History ICD Code Denies NM,DM,CVA,Lung disease,renal dise ase Depression and anxiety Migraines Substance abuse with pills DVT's in both LE's with a PE after 04/2016 surgery--stopped the Coumadin in 09/2016 [facility] Surgical History Surgery Date(Month/Year) Tibia-Fibula Plateau Fracture 04/24/16 Tonsillectomy
--- OUTSIDE RECORDS SUMMARY | 2025-04-08 16:24 | XMS_ITS | Clinical Summary ---
Author Organization [address] [place] [address] [address] [place] [address] Phone Care Team Providers Care Cattle Rancher Name Role Phone Hammad Lopez Primary Care Provider Allergies No known active allergies Social History Tobacco Use Types Packs/Day Years Used Date Smoking Tobacco: Never Assessed Sex and Gender Information Value Date Recorded Sex Assigned at Not on file Legal Sex Male 5:32 AM EST Gender Identity Not on file Sexual Orientation Not on file Plan of Treatment Health Maintenance Due Date Last Done Comments Hepatitis B Vaccines (1 of 3 - 19+ 3-dose series) 12/15/1999 HPV Vaccines (1 - 3-dose SCDM series) 12/15/2007 Depression Screening 04/11/2024 Cholesterol Screening (Lipid Panel) 10/03/2024 HIV Screening 10/03/2024 Hepatitis C Screening 10/03/2024 Social Influencers of Health Screening 10/03/2024 COVID-19 Vaccine ( - 2024- season) 2024 07/28/2020, 06/30/2020 Influenza Vaccine (#1) 2024 , 01/27/2019, 01/12/2019, Additional history exists DTaP,Tdap,and Td Vaccines (2 - Td or Tdap) 03/30/2027 03/30/2017 RSV Immunization Adult Patients (1 - 1-dose 75+ series) 12/15/2055 Pneumococcal Vaccine: Pediatrics (0 to 5 Years) and At-Risk Patients (6 to 49 Years) Completed 11/07/2023, 06/23/2018 HIB Vaccines Aged Out No longer eligi [...] to complete this topic RSV Immunization Patients Under 20 months Aged Out No longer eligible based on patient's age to complete this topic Varicella Vaccines Aged Out No longer eligible based on patient's age to complete this topic Insurance Care Teams Cattle Rancher Relationship Specialty Start Date End Date Hammad Lopez PA [address] [place] [phone] PCP - General Physician Scholarship Counselor 10/02/24
== END 2025-04-09 07:57 | disposition home or self-care (01) ==
LOC: HO.ENCR 14:05
PROVIDERS: Visit Provider Physician Assistant
DX: E11.9 Type 2 diabetes mellitus without complications (principal); E16.2 Hypoglycemia, unspecified

== ENCOUNTER → 2025-04-08 14:04 | Outpatient (BNVA) | payer OTHER, SELFPAY | PROVIDERS: Visit Provider Physician Assistant | DX: E11.9 Type 2 diabetes mellitus without complications (principal); E16.2 Hypoglycemia, unspecified | CPT/HCPCS: 82947 ==